=== PATIENT | male | born 1935 | race Caucasian/White ===

== ENCOUNTER → 2018-06-16 14:23 | Outpatient (CLI) | payer MEDICARE, SELFPAY ==
[2018-06-16 17:09] LABS: Add Manual Diff / Slide Review NO; Basophils Percent Auto 0.8 % (0-2); Eosinophils Percent Auto 1.6 % (2-4); Hematocrit 42.8 % (41-53); Hemoglobin 14.7 g/dL (13.5-17.5); Lymphocytes Percent Auto 25.1 % (25-40); Mean Corpuscular HGB Conc 34.4 % (30-36); Mean Corpuscular Hemoglobin 30.8 PG (26-34); Mean Corpuscular Volume 89.5 fL (80-100); Monocytes Percent Auto 6.9 % (3-14); Neutrophils Absolute Auto 4800 /uL (3000-5900); Neutrophils Percent Auto 65.6 % (50-75); Platelet Count 158 X10^3/uL (150-400); Red Blood Cell Count 4.78 X10^6/uL (4.5-5.9); Red Cell Distribution Width 14.1 % (11.6-14.8); White Blood Cell Count 7.4 X10^3/uL (4.5-11.0)
[2018-06-16 18:04] LABS: Alanine Aminotransferase 49 IU/L (21-72); Albumin 4.1 g/dL (3.5-5.0); Albumin Globulin Ratio 1.6 (1.0-2.8); Alkaline Phosphatase 57 U/L (38-126); Aspartate Aminotransferase 35 IU/L (17-59); Bilirubin Total 0.7 mg/dL (0.2-1.3); Blood Urea Nitrogen 29 mg/dL (9-20); Calcium 9.6 mg/dL (8.4-10.2); Carbon Dioxide 28 mmol/L (22-32); Chloride 101 mmol/L (98-107); Cholesterol 158 mg/dL (140-199); Estimated Glomerular Filt Rate > 60.0 mL/min (>60); Globulin 2.5 g/dL (1.7-4.1); Glucose 89 mg/dL (80-110); HDL Cholesterol 56 mg/dL (40-60); HEMOLYSIS < 15 (0-50); LDL Cholesterol Calculated 59 mg/dL (<100); Potassium 4.6 mmol/L (3.4-5.1); Sodium 141 mmol/L (137-145); Total Protein 6.6 g/dL (6.3-8.2); Triglycerides 216 mg/dL (35-150)
[2018-06-16 18:34] LABS: Prostate Specific Antigen < 0.064 ng/mL (0.10-4.00)
[2018-06-16 18:35] LABS: Thyroid Stimulating Hormone 0.21 uIU/mL (0.47-4.68)
== END ==
PROVIDERS: Family Provider Urology; PCP Family Medicine; Visit Provider Urology
DX: C61 Malignant neoplasm of prostate (principal); E11.9 Type 2 diabetes mellitus without complications; E78.5 Hyperlipidemia, unspecified; I49.9 Cardiac arrhythmia, unspecified; Z12.5 Encounter for screening for malignant neoplasm of prostate; Z51.81 Encounter for therapeutic drug level monitoring
CPT/HCPCS: 36415; 80053; 80061; 84153; 84443; 85025

== ENCOUNTER → 2018-12-12 11:09 | Outpatient (CLI) | payer MEDICARE, SELFPAY ==
[2018-12-12 12:22] LABS: Add Manual Diff / Slide Review NO; Basophils Absolute Auto 0 /uL (0-100); Basophils Percent Auto 0.7 % (0-2); Eosinophils Absolute Auto 200 /uL (0-450); Hematocrit 43.5 % (41-53); Hemoglobin 14.6 g/dL (13.5-17.5); Lymphocytes Absolute Auto 1600 /uL (1100-4500); Lymphocytes Percent Auto 27.6 % (25-40); Mean Corpuscular HGB Conc 33.5 % (30-36); Mean Corpuscular Hemoglobin 30.2 PG (26-34); Mean Corpuscular Volume 90.4 fL (80-100); Monocytes Absolute Auto 400 /uL (0-900); Neutrophils Absolute Auto 3500 /uL (1500-7000); Neutrophils Percent Auto 61.7 % (50-75); Platelet Count 170 X10^3/uL (150-400); Red Blood Cell Count 4.81 X10^6/uL (4.5-5.9); White Blood Cell Count 5.7 X10^3/uL (4.5-11.0)
[2018-12-12 14:10] LABS: Alanine Aminotransferase 48 IU/L (21-72); Albumin 3.9 g/dL (3.5-5.0); Albumin Globulin Ratio 1.5 (1.0-2.8); Alkaline Phosphatase 57 U/L (38-126); Aspartate Aminotransferase 34 IU/L (17-59); Bilirubin Total 0.7 mg/dL (0.2-1.3); Blood Urea Nitrogen 21 mg/dL (9-20); Calcium 9.7 mg/dL (8.4-10.2); Carbon Dioxide 24 mmol/L (22-32); Chloride 103 mmol/L (98-107); Cholesterol 145 mg/dL (140-199); Estimated Glomerular Filt Rate > 60.0 mL/min (>60); Globulin 2.6 g/dL (1.7-4.1); Glucose 119 mg/dL (80-110); HDL Cholesterol 55 mg/dL (40-60); HEMOLYSIS < 15 (0-50); LDL Cholesterol Calculated 68 mg/dL (<100); Potassium 4.3 mmol/L (3.4-5.1); Sodium 139 mmol/L (137-145); Total Protein 6.5 g/dL (6.3-8.2); Triglycerides 110 mg/dL (35-150)
[2018-12-16 15:22] LABS: PSA, Total < 0.1 ng/mL (< 4.1)
== END ==
PROVIDERS: Family Provider Family Medicine; PCP Family Medicine; Visit Provider Specialist
DX: C61 Malignant neoplasm of prostate (principal); E78.5 Hyperlipidemia, unspecified; I10 Essential (primary) hypertension; Z85.46 Personal history of malignant neoplasm of prostate
CPT/HCPCS: 36415; 80053; 80061; 84153; 84154; 85025

== ENCOUNTER → 2019-04-03 10:06 | Outpatient (CLI) | payer MEDICARE, SELFPAY ==
--- NOTE | 2019-04-03 10:31 | DI.CT.S_ITS ---
PROCEDURE: CT LUMBAR SPINE WO CON INDICATIONS: Spondylolisthesis, lumbar region TECHNIQUE: Noncontrast 3 mm thick sections acquired from the T12 level to the sacrum. Sagittal and coronal reformats were constructed. For radiation dose reduction, the following was used: automated exposure control. COMPARISON: [facility] [place], CR, XR LUMBAR SPINE 2 OR 3 VIEWS, 03/31/2019, 12:03. [facility], MR, L-SPINE WITHOUT CONTRAST, 09/28/2016, 8:19. FINDINGS: Image quality: Excellent. Bones: There is trace anterolisthesis L4 on 5, otherwise normal bony AP alignment. No significant alignment changes compared to prior studies. There are transpedicular screws, bilateral fusion rods, and disc spacers from L4-S1. Subtle lucency surrounding the right S1 screw. No other evidence of hardware failure. No acute vertebral body compression fractures. Degenerative endplate cystic and sclerotic changes suggestive of Schmorl's nodes at multiple levels. No suspicious lytic or blastic bony lesions. Central spinal caliber is of normal overall caliber. No pars defects. T12-L1: Mild degenerative disc disease. L1-L2: Mild circumferential disc bulge and slight left facet hypertrophy causing mild left foraminal narrowing. L2-L3: Near-complete disc height loss with mild endplate spurring. Ligamentum flavum hypertrophy. This results in [id number] central canal stenosis and probable mild bilateral foraminal narrowing. L3-L4: Degenerative disc osteophyte complex and moderate ligamentum flavum hypertrophy are present which results in moderate central canal narrowing. Left facet spurring causes mild to moderate left foraminal narrowing. L4-L5: Scattered artifact from disc spacer and posterior fusion hardware partially obscures visualization of the neural foramina which on sagittal views appears widely patent. No significant central canal stenosis. L5-S1: No central canal or foraminal stenosis. Soft tissues: No retroperitoneal masses or hematomas. The right renal cyst and nonobstructing upper pole nephrolithiasis. Visualized aorta is normal in caliber. IMPRESSION: 1. L4-S1 posterior fusion and disc space are placement. Trace lucency around the right S1 screw without evidence of hardware migration. 2. Mild to moderate central canal stenosis secondary to disc, endplates, and posterior element hypertrophy, mainly at L3-4 and to a lesser extent L2-3. 3. Moderate left foraminal narrowing secondary to facet spurring at L3-4, and mild bilateral foraminal narrowing probably at L2-3. Dictated by: Sarah Merrill M.D. on 04/03/2019 at 13:01 Approved by: Sarah Merrill M.D. on 04/03/2019 at 13:15
[2019-04-03 11:41] LABS: Prostate Specific Antigen < 0.064 ng/mL (0.10-4.00)
== END ==
PROVIDERS: Family Provider Specialist; PCP Family Medicine; Visit Provider Orthopaedic Surgery Orthopaedic Surgery of the Spine
DX: M43.16 Spondylolisthesis, lumbar region (principal); M51.35 Other intervertebral disc degeneration, thoracolumbar region; M48.061 Spinal stenosis, lumbar region without neurogenic claudication; N40.1 Benign prostatic hyperplasia with lower urinary tract symptoms; Z98.1 Arthrodesis status
CPT/HCPCS: 36415; 72131; 84153

== ENCOUNTER → 2019-06-22 14:31 | Outpatient (CLI) | payer MEDICARE, SELFPAY ==
--- NOTE | 2019-06-22 14:36 | DI.US.S_ITS ---
PROCEDURE: US THYROID INDICATIONS: MULTINODULAR GOITER TECHNIQUE: Real-time scanning was performed of the thyroid gland, with image documentation. COMPARISON: Outside Facility, , US SOFT TISSUE HEAD OR NECK, 10/13/2013, 9:49. [facility], [place], THYROID UPTAKE AND SCAN, 03/10/2013, 9:22. FINDINGS: Right: Thyroid lobe measures 7.2 x 4.8 x 3.5 cm, and is homogeneous in echotexture. Left: Thyroid lobe measures 8.9 x 3.7 x 3.2 cm, and is homogenous in echotexture. Isthmus: 9.0 mm thick. Nodule number: 1 Location: Right mid inferior Size: Increased at 5.7 x 4.5 x 3.1 cm. Composition: Solid Echogenicity: Heterogeneous Shape: wider than tall. Margins: Smooth Echogenic foci: Internal punctate echogenic foci and macrocalcifications Total points: 7 ACR TI-RADS category: Highly suspicious Nodule number: 2 Location: Right superior medial Size: 1.8 x 1.8 x 1.6 cm. Composition: Predominantly solid Echogenicity: Isoechoic Shape: wider than tall. Margins: Smooth Echogenic foci: Internal punctate echogenic foci Total points: 5 ACR TI-RADS category: Moderately suspicious Nodule number: 3 Location: Left superior Size: Increased at 2.3 x 2.2 x 2.1 cm. Composition: Predominant solid Echogenicity: Isoechoic Shape: wider than tall. Margins: Ill-defined Echogenic foci: Internal punctate echogenic foci Total points: 6 ACR TI-RADS category: Moderately suspicious Nodule number: 4 Location: Left mid Size: 2.6 x 2.0 x 1.8 cm. Composition: Predominantly solid Echogenicity: Hypoechoic Shape: wider than tall. Margins: Ill-defined Echogenic foci: None Total points: 5 ACR TI-RADS category: Moderately suspicious Nodule number: 5 Location: Left inferior Size: Increased at 3.6 x 3.4 x 2.6 cm. Composition: Predominant solid Echogenicity: Hypoechoic Shape: wider than tall. Margins: Irregular Echogenic foci: Macrocalcifications Total points: 6 ACR TI-RADS category: Moderately suspicious IMPRESSION: Bilateral thyroid nodules as above. Recommend sonographically directed fine needle aspiration on the right # 1 and the left # 5 nodules and continued sonographic surveillance of the additional smaller nodules. ACR TI-RADS definitions and recommendations: TI-RADS 1 (benign): 0 points. FNA not needed. TI-RADS 2 (not suspicious): 2 points. FNA not needed. TI-RADS 3 (mildly suspicious): 3 points. * FNA if 2.5 cm or larger, follow up if 1.5 cm or larger (at 1, 3, and 5 years). TI-RADS 4 (moderately suspicious): 4-6 points. * FNA if 1.5 cm or larger, follow up if 1 cm or larger (at 1, 2, 3, and 5 years). TI-RADS 5 (highly suspicious): 7 points or more. * FNA if 1 cm or larger, follow up if 0.5 cm or larger (every year for 5 years). Dictated by: Jarod TERAN Interpreted: Lou Anne MD on 06/23/2019 at 10:11 Approved by: Lou Anne M.D. on 06/23/2019 at 12:30
== END ==
PROVIDERS: Family Provider Specialist; PCP Family Medicine; Visit Provider Family Medicine
DX: E04.2 Nontoxic multinodular goiter (principal)
CPT/HCPCS: 76536

== ENCOUNTER → 2019-10-02 09:59 | Outpatient (CLI) | payer MEDICARE, SELFPAY ==
[2019-10-02 11:31] LABS: Prostate Specific Antigen < 0.064 ng/mL (0.10-4.00)
== END ==
PROVIDERS: PCP Family Medicine; Visit Provider Specialist
DX: C61 Malignant neoplasm of prostate (principal)
CPT/HCPCS: 36415; 84153

== ENCOUNTER → 2019-10-30 12:06 | Outpatient (CLI) | payer MEDICARE, SELFPAY ==
[2019-10-30 14:16] LABS: Free T3, Triiodothyronine Free 3.68 pg/mL (2.77-5.27); Free T4, Direct Thyroxine 1.07 ng/dL (0.78-2.19)
[2019-10-30 14:29] LABS: Thyroid Stimulating Hormone 0.14 uIU/mL (0.47-4.68)
== END ==
PROVIDERS: PCP Family Medicine; Visit Provider Internal Medicine Endocrinology, Diabetes & Metabolism
DX: E04.2 Nontoxic multinodular goiter (principal); E05.90 Thyrotoxicosis, unspecified without thyrotoxic crisis or storm
CPT/HCPCS: 36415; 84439; 84443; 84481

== ENCOUNTER → 2020-02-26 10:06 | Outpatient (CLI) | payer MEDICARE, SELFPAY ==
[2020-02-26 21:21] LABS: COVID19 Sendout Not Detected (Not Detect)
== END ==
PROVIDERS: PCP Physician Assistant; Visit Provider Physician Assistant
DX: Z01.812 Encounter for preprocedural laboratory examination (principal)
CPT/HCPCS: 87635

== ENCOUNTER 2020-03-01 11:44 | Day surgery (SDC) | payer MEDICARE, SELFPAY ==
[2020-03-01] MEDS: PROPARACAINE 0.5% OPHTH SOL 2 DROPS EYE-OP (12:07)
[2020-03-01] MEDS: CATARACT EYE COMPOUND (10 DROPS/SYRINGE) 3 DROPS EYE-OP (12:08)
[2020-03-01 12:12] VITALS: BMI 31.2
[2020-03-01 12:25] VITALS: PULSE 73; RESP 16; TEMP 36.8; O2SAT 98
[2020-03-01 12:37] VITALS: BP 175/112
[2020-03-01 12:39] VITALS: BMI 31.2
--- NOTE | 2020-03-01 12:48 | SUR.PREOP ---
Patient has an irregular HR. Denies pain.
--- NOTE | 2020-03-01 15:46 | PM.PREOP ---
Pre-operative Note Interval Note History & Physical reviewed/Exam performed by Physician: Yes Changes to H&P: No
--- NOTE | 2020-03-01 15:46 | PM.OP.1 ---
Operative Date/Time/Diagnoses Pre-op diagnosis: Nuclear Cataract Left eye Post-op diagnosis: same Procedure & Clinicians Same procedure as scheduled: Yes Surgeon: Neil Nunez Anesthesia Type: MAC +/- and Sedation Operative Notes Procedure in detail: Patient brought to the operating suite. Tetracaine drops placed in the left eye. Patient was prepped and draped in sterile manner. Wire lid speculum was placed in the eye. Betadine drops were placed on the eye. This was irrigated. Lidocaine jelly was placed on the eye. A paracentesis port was created with a side-port blade. 0.1 mL 1% preservative free lidocaine was injected into the anterior chamber. The anterior chamber was deepened with viscoelastic. 2.6 mm keratome was used to create a temporal clear corneal incision. Cystotome and Utrata forceps were used to create continuous tear capsulorrhexis. Balanced salt solution was used to hydro dissect the nucleus. The phacoemulsification handpiece was inserted and the nucleus was removed using the stop and chop technique. There was a tear noted in the anterior chamber and 1 quarter of the nucleus descended in the posterior segment. No attempt was made to retrieve this. Anterior chamber was deepened with viscoelastic. The incision was enlarged with keratome. An Jarquin ZA003 intraocular lens with a power of 17.5 was injected into the sulcus. It was well centered. Irrigation aspiration handpiece was inserted and the remaining viscoelastic was removed. There was no vitreous in the anterior chamber. 1 ml of miostat was injected into the anterior chamber and the iris constricted symmetrically. Incision was hydrated with balanced salt solution and found to be leak free with pressure with Weck-Faby sponges. 0.1 mL Vigamox injected anterior chamber. 0.3 mL Kenalog 10 mg was injected subconjunctivally. A drop of timolol was given and one drop of ocuflox was given. Lid speculum was removed. The patient left the operating room in excellent condition. Complications: none Post-operative Condition: stable Disposition: same day surgery
[2020-03-01] MEDS: PHENYLEPHRINE/LIDOCAINE VIAL (OR) 0.2 ML EYE-OP (16:06)
[2020-03-01] MEDS: TRIAMCINOLONE 50 MG/5 ML VIAL INJ (16:07)
[2020-03-01] MEDS: MOXIFLOXACIN INJ 5 MG/ML VIAL EYE-OP (16:07)
[2020-03-01] MEDS: CARBACHOL 1.5 ML VIAL INJ (16:13)
[2020-03-01] MEDS: CHONDROIDTIN/SOD HYALURONATE 1.05 ML SYRINGE INTRAOCULA (16:13)
[2020-03-01] MEDS: BALANCED SALT IRRIG SOLN NO.2 500 ML, EPINEPHrine 1 MG IRR (16:14)
[2020-03-01] MEDS: TETRACAINE 0.5% OPHTH DROPS 4 ML 2 DROPS EYE-OP (16:14)
[2020-03-01] MEDS: LIDOCAINE JELLY 2% 5 ML 1 APPLIC TOP (16:15)
[2020-03-01] MEDS: OFLOXACIN 0.3% OPHTH 5 ML 2 DROPS EYE-LEFT (16:26)
[2020-03-01] MEDS: TIMOLOL 0.5% OPHTH 2 DROPS EYE-LEFT (16:27)
[2020-03-01 16:33] VITALS: BP 138/63; PULSE 16; RESP 16; TEMP 36.3; O2SAT 97
== END 2020-03-01 16:54 | disposition home or self-care (01) ==
PROVIDERS: PCP Physician Assistant; Referring Provider Ophthalmology; Visit Provider Ophthalmology
PROC: (CPT 66984; principal; 2020-03-01 14:30)
DX: H25.12 Age-related nuclear cataract, left eye (principal); E11.9 Type 2 diabetes mellitus without complications; Z86.73 Personal history of transient ischemic attack (TIA), and cerebral infarction without residual deficits
CPT/HCPCS: 66984; J0171; J2250; J3301

== ENCOUNTER → 2020-03-28 14:38 | Outpatient (CLI) | payer MEDICARE, SELFPAY ==
[2020-03-28 16:15] LABS: Prostate Specific Antigen < 0.064 ng/mL (0.10-4.00)
== END ==
PROVIDERS: PCP Student in an Organized Health Care Education/Training Program; Referring Provider Specialist; Visit Provider Specialist
DX: C61 Malignant neoplasm of prostate (principal)
CPT/HCPCS: 36415; 84153

== ENCOUNTER → 2020-04-11 12:54 | Outpatient (CLI) | payer MEDICARE, SELFPAY ==
[2020-04-11 14:04] LABS: BUN Creatinine Ratio 28.9 (6-22); Blood Urea Nitrogen 26 mg/dL (9-20); Calcium 9.5 mg/dL (8.4-10.2); Carbon Dioxide 24 mmol/L (22-32); Chloride 106 mmol/L (98-107); Estimated Glomerular Filt Rate > 60.0 mL/min (>60); Glucose 138 mg/dL (80-110); HEMOLYSIS < 15 (0-50); Potassium 4.2 mmol/L (3.4-5.1); Sodium 139 mmol/L (137-145)
[2020-04-11 16:14] LABS: Vitamin D 25 Hydroxy (D3) 26.3 ng/mL (30.0-100.0)
[2020-04-12 08:11] LABS: Parathyroid Hormone Int 38 pg/mL (15-65)
== END ==
PROVIDERS: PCP Student in an Organized Health Care Education/Training Program; Referring Provider Student in an Organized Health Care Education/Training Program; Visit Provider Student in an Organized Health Care Education/Training Program
DX: E83.52 Hypercalcemia (principal); I10 Essential (primary) hypertension
CPT/HCPCS: 36415; 80048; 82306; 83970

== ENCOUNTER → 2020-10-17 11:29 | Outpatient (CLI) | payer MEDICARE, SELFPAY ==
[2020-10-17 12:56] LABS: Hemoglobin A1C% w Est Avg Glu 6.4 % (4.0-6.0)
[2020-10-17 12:57] LABS: Alanine Aminotransferase 18 IU/L (<50); Albumin 3.8 g/dL (3.5-5.0); Albumin Globulin Ratio 1.5 (1.0-2.8); Alkaline Phosphatase 61 U/L (38-126); Aspartate Aminotransferase 21 IU/L (17-59); BUN Creatinine Ratio 49.3 (6-22); Bilirubin Total 0.4 mg/dL (0.2-1.3); Bilirubin Unconjugated 0.4 mg/dL (0.0-1.1); Blood Urea Nitrogen 33 mg/dL (9-20); Calcium 10.1 mg/dL (8.4-10.2); Carbon Dioxide 27 mmol/L (22-32); Chloride 104 mmol/L (98-107); Estimated Glomerular Filt Rate > 60.0 mL/min (>60); Globulin 2.5 g/dL (1.7-4.1); Glucose 129 mg/dL (80-110); HEMOLYSIS < 15 (0-50); Potassium 4.3 mmol/L (3.4-5.1); Sodium 138 mmol/L (137-145); Total Protein 6.3 g/dL (6.3-8.2)
[2020-10-17 13:27] LABS: Thyroid Stimulating Hormone 0.127 uIU/mL (0.47-4.68)
[2020-10-17 16:13] LABS: Vitamin D 25 Hydroxy (D3) 26.4 ng/mL (30.0-100.0)
== END ==
PROVIDERS: PCP Student in an Organized Health Care Education/Training Program; Referring Provider Student in an Organized Health Care Education/Training Program; Visit Provider Student in an Organized Health Care Education/Training Program
DX: F10.10 Alcohol abuse, uncomplicated (principal); R73.03 Prediabetes; E55.9 Vitamin D deficiency, unspecified; M81.0 Age-related osteoporosis without current pathological fracture; E05.90 Thyrotoxicosis, unspecified without thyrotoxic crisis or storm; I10 Essential (primary) hypertension
CPT/HCPCS: 36415; 80048; 80076; 82306; 83036; 84443

== ENCOUNTER → 2020-11-15 09:53 | Outpatient (CLI) | payer MEDICARE, OTHER, SELFPAY ==
[2020-11-15 11:41] LABS: Prostate Specific Antigen < 0.064 ng/mL (0.10-4.00)
[2020-11-15 11:47] LABS: Hemoglobin A1C% w Est Avg Glu 6.6 % (4.0-6.0)
== END ==
PROVIDERS: PCP Student in an Organized Health Care Education/Training Program; Referring Provider Specialist; Visit Provider Specialist
DX: E11.9 Type 2 diabetes mellitus without complications (principal); E55.9 Vitamin D deficiency, unspecified; R97.20 Elevated prostate specific antigen [PSA]
CPT/HCPCS: 36415; 82306; 83036; 84153

== ENCOUNTER → 2021-05-16 11:05 | Outpatient (CLI) | payer MEDICARE, SELFPAY ==
[2021-05-16 12:26] LABS: BUN Creatinine Ratio 29.6 (6-22); Blood Urea Nitrogen 21 mg/dL (9-20); Calcium 10.2 mg/dL (8.4-10.2); Carbon Dioxide 26 mmol/L (22-32); Chloride 106 mmol/L (98-107); Estimated Glomerular Filt Rate > 60.0 mL/min (>60); Glucose 142 mg/dL (80-110); HEMOLYSIS < 15 (0-50); Potassium 4.2 mmol/L (3.4-5.1); Sodium 140 mmol/L (137-145)
[2021-05-16 12:41] LABS: Hemoglobin A1C% w Est Avg Glu 6.1 % (4.0-6.0)
[2021-05-16 12:55] LABS: TSH w/ Reflex to FT4 0.16 uIU/mL (0.47-4.68)
[2021-05-16 13:00] LABS: Prostate Specific Antigen < 0.064 ng/mL (0.10-4.00)
== END ==
PROVIDERS: PCP Student in an Organized Health Care Education/Training Program; Referring Provider Student in an Organized Health Care Education/Training Program; Visit Provider Student in an Organized Health Care Education/Training Program
DX: C61 Malignant neoplasm of prostate (principal); E11.9 Type 2 diabetes mellitus without complications; E05.90 Thyrotoxicosis, unspecified without thyrotoxic crisis or storm; I10 Essential (primary) hypertension; N39.46 Mixed incontinence; M48.061 Spinal stenosis, lumbar region without neurogenic claudication; Z79.899 Other long term (current) drug therapy
CPT/HCPCS: 36415; 51798; 80048; 81002; 83036; 84153; 84439; 84443; 96372; 96402; 99214; J0897; J9217

== ENCOUNTER → 2021-10-25 09:59 | Outpatient (CLI) | payer MEDICARE, SELFPAY ==
[2021-10-25 11:10] LABS: BUN Creatinine Ratio 32.8 (6-22); Blood Urea Nitrogen 21 mg/dL (9-20); Estimated Glomerular Filt Rate > 60.0 mL/min (>60)
[2021-10-25 11:17] LABS: Hemoglobin A1C% w Est Avg Glu 5.9 % (4.0-6.0)
[2021-10-25 11:25] LABS: Vitamin D 25 Hydroxy (D3) 35.3 ng/mL (30.0-100.0)
[2021-10-25 11:49] LABS: Prostate Specific Antigen < 0.064 ng/mL (0.10-4.00)
[2021-10-25 12:10] LABS: Thyroid Stimulating Hormone 0.253 uIU/mL (0.47-4.68)
== END ==
PROVIDERS: Specialist; PCP Student in an Organized Health Care Education/Training Program; Referring Provider Student in an Organized Health Care Education/Training Program; Visit Provider Student in an Organized Health Care Education/Training Program
DX: E11.9 Type 2 diabetes mellitus without complications (principal); E55.9 Vitamin D deficiency, unspecified; C61 Malignant neoplasm of prostate; E05.90 Thyrotoxicosis, unspecified without thyrotoxic crisis or storm
CPT/HCPCS: 36415; 82306; 82565; 83036; 84153; 84443; 84520

== ENCOUNTER → 2021-11-15 10:42 | Outpatient (CLI) | payer MEDICARE, SELFPAY ==
[2021-11-15 13:25] LABS: Prostate Specific Antigen < 0.064 ng/mL (0.10-4.00)
== END ==
PROVIDERS: PCP Student in an Organized Health Care Education/Training Program; Referring Provider Specialist; Visit Provider Specialist
DX: R97.20 Elevated prostate specific antigen [PSA] (principal)
CPT/HCPCS: 36415; 84153

== ENCOUNTER → 2022-04-23 09:21 | Outpatient (CLI) | payer MEDICARE, SELFPAY ==
[2022-04-23 10:49] LABS: Hemoglobin A1C% w Est Avg Glu 6.3 % (4.0-6.0)
[2022-04-23 10:56] LABS: Blood Urea Nitrogen 23 mg/dL (9-20); Calcium 9.3 mg/dL (8.4-10.2); Carbon Dioxide 28 mmol/L (22-32); Chloride 104 mmol/L (98-107); Cholesterol 153 mg/dL (140-199); Estimated Glomerular Filt Rate > 60 mL/min (>60); Glucose 132 mg/dL (80-110); HDL Cholesterol 51 mg/dL (40-60); HEMOLYSIS < 15 (0-50); LDL Cholesterol Calculated 72 mg/dL (<100); Potassium 4.4 mmol/L (3.4-5.1); Sodium 137 mmol/L (137-145); Triglycerides 149 mg/dL (35-150)
[2022-04-23 11:23] LABS: Prostate Specific Antigen < 0.064 ng/mL (0.10-4.00)
[2022-04-23 11:24] LABS: TSH w/ Reflex to FT4 0.26 uIU/mL (0.47-4.68)
[2022-04-23 11:49] LABS: Free T4, Direct Thyroxine 1.26 ng/dL (0.78-2.19)
[2022-04-23 22:48] LABS: Creatinine Urine Random 90.1 mg/dL; Microalbumi Creatinin Ratio Ur 8.8 ug/mg CR (<30); Microalbumin Urine Random 0.8 mg/dL (0-1.6)
== END ==
PROVIDERS: Specialist; PCP Student in an Organized Health Care Education/Training Program; Referring Provider Student in an Organized Health Care Education/Training Program; Visit Provider Student in an Organized Health Care Education/Training Program
DX: E11.9 Type 2 diabetes mellitus without complications (principal); R97.20 Elevated prostate specific antigen [PSA]; E78.2 Mixed hyperlipidemia; E05.90 Thyrotoxicosis, unspecified without thyrotoxic crisis or storm
CPT/HCPCS: 36415; 80048; 80061; 82043; 82570; 83036; 84153; 84439; 84443

== ENCOUNTER → 2022-04-25 13:43 | Outpatient (CLI) | payer MEDICARE, SELFPAY | PROVIDERS: PCP Student in an Organized Health Care Education/Training Program; Referring Provider Specialist; Visit Provider Specialist | DX: M81.8 Other osteoporosis without current pathological fracture (principal); C61 Malignant neoplasm of prostate | CPT/HCPCS: 77080 ==

== ENCOUNTER → 2022-09-27 14:53 | Outpatient (CLI) | payer MEDICARE, SELFPAY ==
--- NOTE | 2022-09-27 14:54 | DI.CT.S_ITS ---
PROCEDURE: CT LUMBAR SPINE WO CON INDICATIONS: Worsening low back pain. H/o prostate Ca TECHNIQUE: Noncontrast 3 mm thick sections acquired from the T12 level to the sacrum. Sagittal and coronal reformats were constructed. For radiation dose reduction, the following was used: automated exposure control. COMPARISON: [facility], MR, L-SPINE WITHOUT CONTRAST, 09/28/2016, 8:19. [facility] [place], CR, XR LUMBAR SPINE 2 OR 3 VIEWS, 08/07/2022, 15:10. [facility] [place], CR, XR LUMBAR SPINE 2 OR 3 VIEWS, 05/22/2022, 11:08. [facility], CT, CT LUMBAR SPINE WO CON, 04/03/2019, 10:21. FINDINGS: Image quality: Excellent. Bones: No acute vertebral body compression fractures. No suspicious lytic or blastic bony lesions. No pars defects. Postoperative changes are seen, with bilateral pedicle screws at the L4, L5, and S1 levels. The screws appear well placed. Vertical fixation rods are seen. Disc spacers are seen at L4-L5 and L5-S1. There is abnormal lucency seen adjacent to the right S1 screw. This degree of lucency is similar to 2019. No additional findings of hardware failure or hardware loosening are seen. Mild grade 1 anterolisthesis is seen at the L4-L5 level. T12-L1: No significant abnormality is seen. L1-L2: At least moderate loss of disc height is seen. Vacuum disc phenomenon is seen at this level. Endplate irregularity and sclerosis can be seen. Remote appearing Schmorl's nodes are seen. Moderate disc bulge is seen, which is eccentric to the right. Mild facet joint hypertrophy is seen. Associated hypertrophy of the ligamentum flavum can be seen. There is at least moderate right-sided and moderate left-sided neural foraminal narrowing. At least moderate central canal narrowing is seen. These imaging findings have progressed compared to the prior study. L2-L3: Moderate to severe loss of disc height is seen. Vacuum disc phenomenon is seen at this level. Endplate irregularity and sclerosis can be seen. Moderate generalized disc bulge is seen. There is moderate to severe bilateral neural foraminal narrowing seen. At least moderate central canal narrowing is seen at this level. When comparison is made with the prior images, these findings are similar. L3-L4: Moderate to severe loss of disc height is seen. Vacuum disc phenomenon is seen at this level. Endplate irregularity and sclerosis can be seen. At least moderate disc bulge is seen at this level. Moderate to prominent facet hypertrophy is seen. Associated hypertrophy of the ligamentum flavum can be seen. There is moderate to severe bilateral neural foraminal narrowing seen, left worse than right. Moderate to severe central canal narrowing is seen. When compared to 2019, the degenerative changes at this level are progressed. L4-L5: At least moderate disc bulge is seen. Moderate to prominent facet hypertrophy is seen. At least moderate bilateral neural foraminal narrowing can be seen. Moderate central canal narrowing is seen. When comparison is made with the prior images, these findings are similar. L5-S1: Mild generalized disc bulge is seen. Mild facet joint hypertrophy is seen. Mild to moderate right-sided and mild left-sided neural foraminal narrowing is seen. No significant central canal narrowing is seen. When comparison is made with the prior images, these findings are similar. Soft tissues: No retroperitoneal masses or hematomas. Visualized aorta is normal in caliber. Atherosclerotic calcification is noted. Bilateral pelvic clips are seen. IMPRESSION: L4 through S1 postoperative hardware is seen. There is again seen lucency adjacent to the right S1 screw, which is similar to 2019. Multiple levels of degenerative change are seen. The degenerative changes are progressed at L1-L2 and at L3-L4 compared to 2019. Dictated by: Bobo Larios M.D. on 09/28/2022 at 12:05 Approved by: Bobo Larios M.D. on 09/28/2022 at 12:14
== END ==
PROVIDERS: PCP Student in an Organized Health Care Education/Training Program; Referring Provider Student in an Organized Health Care Education/Training Program; Visit Provider Student in an Organized Health Care Education/Training Program
DX: C61 Malignant neoplasm of prostate (principal); M47.816 Spondylosis without myelopathy or radiculopathy, lumbar region; M48.061 Spinal stenosis, lumbar region without neurogenic claudication; M43.16 Spondylolisthesis, lumbar region; M54.50 Low back pain, unspecified
CPT/HCPCS: 72131

== ENCOUNTER → 2022-11-26 10:34 | Outpatient (CLI) | payer MEDICARE, SELFPAY ==
[2022-11-26 12:27] LABS: Prostate Specific Antigen < 0.064 ng/mL (0.10-4.00)
[2022-11-26 12:51] LABS: Free T4, Direct Thyroxine 1.39 ng/dL (0.78-2.19)
== END ==
PROVIDERS: PCP Student in an Organized Health Care Education/Training Program; Referring Provider Specialist; Visit Provider Specialist
DX: E11.9 Type 2 diabetes mellitus without complications (principal); E05.90 Thyrotoxicosis, unspecified without thyrotoxic crisis or storm; C61 Malignant neoplasm of prostate
CPT/HCPCS: 36415; 83036; 84153; 84439; 84443

== ENCOUNTER → 2023-03-02 14:16 | Outpatient (CLI) | payer MEDICARE, SELFPAY ==
--- NOTE | 2023-03-02 14:18 | DI.RAD.S_ITS ---
PROCEDURE: XR SHOULDER RT MIN 2V INDICATIONS: Shoulder DJD TECHNIQUE: 3 views of the shoulder were acquired. COMPARISON: None. FINDINGS: Bones: No fractures or dislocations. No suspicious bony lesions. Visualized ribs appear intact. Moderate glenohumeral joint space narrowing and small marginal osteophyte Soft tissues: No suspicious soft tissue calcifications. IMPRESSION: Moderate right glenohumeral osteoarthritis Approved by: Chalo Loomis M.D. on 03/02/2023 at 14:00
--- NOTE | 2023-03-02 14:18 | DI.RAD.S_ITS ---
PROCEDURE: XR SHOULDER LT MIN 2V INDICATIONS: Shoulder DJD TECHNIQUE: 3 views of the shoulder were acquired. COMPARISON: None. FINDINGS: Bones: No fractures or dislocations. No suspicious bony lesions. Visualized ribs appear intact. Soft tissues: No suspicious soft tissue calcifications. IMPRESSION: Unremarkable left shoulder radiographs Approved by: Chalo Loomis M.D. on 03/02/2023 at 13:59
== END ==
PROVIDERS: Family Provider Student in an Organized Health Care Education/Training Program; PCP Student in an Organized Health Care Education/Training Program; Referring Provider Physical Medicine & Rehabilitation; Visit Provider Physical Medicine & Rehabilitation
DX: M19.011 Primary osteoarthritis, right shoulder (principal); M19.012 Primary osteoarthritis, left shoulder; M75.101 Unspecified rotator cuff tear or rupture of right shoulder, not specified as traumatic; M75.102 Unspecified rotator cuff tear or rupture of left shoulder, not specified as traumatic
CPT/HCPCS: 73030

== ENCOUNTER → 2023-06-25 13:39 | Outpatient (CLI) | payer MEDICARE, SELFPAY ==
[2023-06-25 15:55] LABS: Prostate Specific Antigen < 0.064 ng/mL (0.10-4.00)
== END ==
PROVIDERS: Family Provider Student in an Organized Health Care Education/Training Program; PCP Pediatrics; Referring Provider Specialist; Visit Provider Specialist
DX: C61 Malignant neoplasm of prostate (principal)
CPT/HCPCS: 36415; 84153

== ENCOUNTER 2023-09-27 17:07 | Emergency (ER) | payer MEDICARE, SELFPAY ==
[2023-09-27] VITALS (12 sets, daily range): BP systolic 133–202; BP diastolic 88–105; PULSE 61–112; RESP 16–24; TEMP 36.6–37.1; O2SAT 94–98; BMI 28.3
--- NOTE | 2023-09-27 17:10 | DI.CT.S_ITS ---
PROCEDURE: CT HEAD/BRAIN WO CON INDICATIONS: confusion TECHNIQUE: Noncontrast 4.5 mm thick angled axial sections acquired from the foramen magnum to the vertex, with coronal and sagittal reformats. For radiation dose reduction, the following was used: automated exposure control, adjustment of mA and/or kV according to patient size. COMPARISON: Outside Facility, RG, CT HEAD W/WO CONTRAST, 05/23/2016, 11:35. [facility], CT, CT CERVICAL SPINE WO CON, 09/27/2023, 17:52. FINDINGS: Image quality: Excellent. CSF spaces: Basal cisterns are patent. No extra-axial fluid collections. The ventricles are symmetric in size and shape. Brain: No intracranial bleeds or masses. There is cerebral volume loss for age, with resultant ventricular and sulcal prominence. There are periventricular and deep white matter chronic small vessel ischemic changes. There is intracranial internal carotid artery atherosclerosis. Skull and face: Calvarium and visualized facial bones appear intact, without suspicious lesions. Trace appearance of slight left frontal scalp hematoma. Sinuses: Visualized sinuses and mastoids are clear. IMPRESSION: 1. No acute intracranial process. 2. Moderate atrophy and chronic microvascular ischemic changes. 3. Trace appearance of left frontal scalp hematoma. Dictated by: Lou Anne M.D. on 09/27/2023 at 18:12 Approved by: Lou Anne M.D. on 09/27/2023 at 18:13
--- NOTE | 2023-09-27 17:10 | DI.CT.S_ITS ---
PROCEDURE: CT CERVICAL SPINE WO CON INDICATIONS: confusion possible fall TECHNIQUE: Noncontrast 3 mm thick sections acquired from the skull base to the T4 level. Sagittal and coronal reformats were then constructed. For radiation dose reduction, the following was used: automated exposure control, adjustment of mA and/or kV according to patient size. COMPARISON: [facility], CT, CT HEAD/BRAIN WO CON, 09/27/2023, 17:52. FINDINGS: Image quality: Excellent. Bones: No fractures or dislocations. Visualized superior ribs are intact. Multilevel degenerative changes are present. Soft tissues: Prevertebral soft tissues are normal in thickness. No paravertebral hematomas. No apical pneumothoraces. Thyroid gland is markedly enlarged with heterogeneous areas of low attenuation and calcification extending into the superior mediastinum, as identified on prior ultrasound. IMPRESSION: Degenerative changes without visualized fracture. Dictated by: Lou nAne M.D. on 09/27/2023 at 18:14 Approved by: Lou Anne M.D. on 09/27/2023 at 18:16
[2023-09-27 17:18] LABS: Add Manual Diff / Slide Review NO; Basophils Absolute Auto 100 /uL (0-100); Basophils Percent Auto 0.7 % (0-2); Eosinophils Absolute Auto 0 /uL (0-450); Eosinophils Percent Auto 0.1 % (2-4); Hematocrit 46.4 % (41-53); Hemoglobin 15.8 g/dL (13.5-17.5); Lymphocytes Absolute Auto 1000 /uL (1100-4500); Lymphocytes Percent Auto 8.8 % (25-40); Mean Corpuscular HGB Conc 34.1 % (30-36); Mean Corpuscular Hemoglobin 28.6 PG (26-34); Monocytes Absolute Auto 700 /uL (0-900); Monocytes Percent Auto 5.7 % (3-14); Neutrophils Absolute Auto 9700 /uL (1500-7000); Neutrophils Percent Auto 84.7 % (50-75); Platelet Count 184 X10^3/uL (150-400); Red Blood Cell Count 5.52 X10^6/uL (4.5-5.9); Red Cell Distribution Width 14.3 % (11.6-14.8); White Blood Cell Count 11.5 X10^3/uL (4.5-11.0)
[2023-09-27 17:31] LABS: Creatine Kinase 282 U/L (55-170); Lactate (Lactic Acid) 2.1 mmol/L (0.7-2.1); Lipase 75 U/L (23-300); Magnesium 2.1 mg/dL (1.6-2.3)
[2023-09-27 17:33] LABS: Alanine Aminotransferase 17 IU/L (<50); Albumin 4.3 g/dL (3.5-5.0); Albumin Globulin Ratio 1.4 (1.0-2.8); Alkaline Phosphatase 56 U/L (38-126); Aspartate Aminotransferase 29 IU/L (17-59); BUN Creatinine Ratio 37.3 (6-22); Blood Urea Nitrogen 22 mg/dL (9-20); Calcium 9.6 mg/dL (8.4-10.2); Carbon Dioxide 25 mmol/L (22-32); Chloride 102 mmol/L (98-107); Estimated Glomerular Filt Rate > 60 mL/min (>60); Ethanol (ETOH) < 10 mg/dL; Globulin 3.1 g/dL (1.7-4.1); Glucose 123 mg/dL (80-110); HEMOLYSIS 25 (0-50); Potassium 4.2 mmol/L (3.4-5.1); Sodium 137 mmol/L (137-145); Total Protein 7.4 g/dL (6.3-8.2)
[2023-09-27 17:44] LABS: Troponin I 0.028 ng/mL (0.01-0.034)
[2023-09-27 17:49] LABS: Procalcitonin 0.08 ng/mL (<0.5)
--- NOTE | 2023-09-27 17:51 | ED_ITS ---
HPI - Fall General Chief Complaint: Fall Stated Complaint: Fall, confused, unknown downtime possible thinner Time Seen by Provider: 09/27/23 17:09 Source: EMS Mode of arrival: EMS History of Present Illness HPI Narrative: Patient comes to the ED by ambulance because he was found on the floor in his apartment and unable to get up. Patient has no recollection of falling today though he does report a fall 2 days ago where he hit his head against the wall and has an abrasion on his forehead. Son went to lunch with him on Saturday of this week and he said that his dad looked a little bit out of sorts at that time but he was not overly concerned about it. Today multiple family members tried to contact him over a number of hours and ultimately family asked a staff member at the apartment complex to go check on him. That individual found him laying on the floor in his apartment where he would apparently been for a little bit of time. Paramedics arrived at the scene and transported him to the hospital. His son is at the bedside now. Son is an independent historian as well. Son said that he has no specific abnormalities that he has noted. The patient himself reports no new head injury neck pain chest pain abdominal pain or extremity pain other than chronic left shoulder pain. Denies recent nausea vomiting or illness or fever. Patient himself does not seem to think that his visit here as necessary and he would just like to go home. Son is concerned that he has not had anything to eat today. Related Data Home Medications Medication Instructions Recorded Confirmed diltiazem HCl 180 mg 180 mg PO DAILY 11/23/20 09/12/23 capsule,extended release 24 hr [id number] 250 2 tab PO Q6H PRN 04/26/22 09/12/23 mg-250 mg-65 mg tablet denosumab 60 mg/mL subcutaneous 60 mg SUBCUT [id number] 01/21/23 09/12/23 syringe (Prolia) latanoprost 0.005 % eye drops 1 drp EYE-LEFT DAILY 03/01/23 09/12/23 Previous Rx's Medication Instructions Recorded atorvastatin 40 mg tablet 40 mg PO HS #90 tabs 12/11/22 celecoxib 200 mg capsule (Celebrex) 200 mg PO DAILY #30 caps 03/01/23 losartan 100 mg tablet (Cozaar) 100 mg PO DAILY #90 tabs 05/28/23 hyaluronate sodium, stabilized 60 60 mg (3 mL) intra-articular ONCE 08/26/23 mg/3 mL intra-articular syringe #3 mL (Durolane) Allergies Allergy/AdvReac Type Severity Reaction Status Date / Time fluoride AdvReac Severe mouth sores Verified 09/27/23 17:22 adhesive tape AdvReac Mild redness Verified 09/27/23 17:22 and bruises amoxicillin [AMOXICILLIN] AdvReac Mild DIARRHEA Verified 09/27/23 17:13 Penicillins [PENICILLINS] AdvReac Mild DIARRHEA Verified 09/27/23 17:13 Patient History Medical History 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 DJD of both shoulders Recurrent prostate cancer Urinary incontinence, mixed Subclinical hyperthyroidism TIA (transient ischemic attack) Spondylolisthesis at L4-L5 level Cardiac arrhythmia Multinodular goiter Basal cell carcinoma Squamous cell carcinoma Cataracts, bilateral Osteopenia Spinal stenosis Diabetes Colon polyps Hyperlipemia Hypertension Surgical History Hx of squamous cell carcinoma excision Hx of basal cell carcinoma excision Hx of transurethral resection of prostate Hx of prostatectomy Hx of laminectomy Family History Father No problems noted. Mother Cancer Daughter Thyroid disorder Social History marital status: number of children: 2 household members: spouse Smoking Status: Former smoker Tobacco: How many years used: 60 alcohol intake: current caffeine: Yes Smoking Status: Former smoker alcohol intake frequency: 0-2 drinks per day Substance Use Type: does not use Exam Narrative Exam Narrative: GENERAL: Alert, cooperative and in no distress. HEAD: Abrasion of the left upper forehead. Normocephalic. EYES: Sclera are clear without icterus. Extraocular movements are full. ENT: No rhinorrhea. Oropharynx is moist. Mouth exam is benign. NECK: Supple. Full range of motion. CARDIOVASCULAR: Normal rate and rhythm without murmur gallop or rub. RESPIRATORY: Clear to auscultation. Breath sounds equal bilaterally. No wheezes, rales, or rhonchi. GASTROINTESTINAL: Abdomen soft, non-tender, nondistended. EXTREMITIES: No edema, full range of motion. No obvious trauma. Full range of motion of arms and legs with no evidence of deformity or limitation. BACK: Normal inspection, no CVA tenderness. NEURO: Nonfocal examination, normal speech, moves all extremities equally with normal strength speech is normal and unaffected. SKIN: No rash or erythema of visible areas PSYCH: Normally oriented. Normal range of affect. Appropriate behavior Initial Vital Signs Initial Vital Signs: Vital Signs Temperature 98.8 F 09/27/23 17:09 Pulse Rate 105 H 09/27/23 17:09 Respiratory Rate 16 09/27/23 17:09 Blood Pressure 150/98 H 09/27/23 17:09 Pulse Oximetry 95 09/27/23 17:09 Oxygen Delivery Method Room Air 09/27/23 17:09 Course Orders Ordered: ED Orders 09/27/23 17:10 CT cervical spine wo con Stat CT head/brain wo con Stat Complete Blood Count AUTO DIFF Stat Comprehensive Metabolic Panel Stat Ethanol (ETOH) Stat Lactate (Lactic Acid) Stat Lipase Stat Magnesium Stat Procalcitonin Stat Troponin & CK Cardiac Panel Stat 09/27/23 17:15 Covid-19 + FLU A/B + RSV - PCR Stat 09/27/23 17:42 EKG-12 Lead Stat 09/27/23 20:11 Urine Microscopic Stat Sodium Chloride (Normal Saline 0.9%) 1,000 mls @ 125 mls/hr IV CONT AYUSH Last Admin: 09/27/23 18:05 Dose: 125 mls/hr Documented By: MPO Vital Signs Vital signs: Vital Signs - 8 hr 09/27/23 17:09 09/27/23 17:10 09/27/23 17:11 Temperature 98.8 F Pulse Rate 105 H 107 H Pulse Rate [Orthostatic Lying] Pulse Rate [Orthostatic Sitting] Pulse Rate [Orthostatic Standing] Respiratory Rate 16 Blood Pressure 150/98 H 150/98 H Blood Pressure [Orthostatic Lying] Blood Pressure [Orthostatic Sitting] Blood Pressure [Orthostatic Standing] Pulse Oximetry 95 95 Oxygen Delivery Method Room Air 09/27/23 17:30 09/27/23 18:00 09/27/23 18:01 Temperature Pulse Rate 103 H 103 H 101 H Pulse Rate [Orthostatic Lying] Pulse Rate [Orthostatic Sitting] Pulse Rate [Orthostatic Standing] Respiratory Rate 17 21 Blood Pressure Blood Pressure [Orthostatic Lying] Blood Pressure [Orthostatic Sitting] Blood Pressure [Orthostatic Standing] Pulse Oximetry 94 96 96 Oxygen Delivery Method 09/27/23 18:01 09/27/23 20:25 Temperature Pulse Rate Pulse Rate [Orthostatic Lying] 66 Pulse Rate [Orthostatic Sitting] 111 H Pulse Rate [Orthostatic Standing] 112 H Respiratory Rate Blood Pressure 147/105 H Blood Pressure [Orthostatic Lying] 202/88 H Blood Pressure [Orthostatic Sitting] 134/97 H Blood Pressure [Orthostatic Standing] 144/105 H Pulse Oximetry Oxygen Delivery Method MDM - Fall Lab Data 09/27/23 17:10 09/27/23 17:10 Labs: Lab Results 09/27/23 09/27/23 09/27/23 Range/Units 17:10 17:15 19:36 WBC 11.5 H (4.5-11.0) X10^3/uL RBC 5.52 (4.5-5.9) X10^6/uL Hgb 15.8 (13.5-17.5) g/dL Hct 46.4 (41-53) % MCV 84.0 (80-100) fL MCH 28.6 (26-34) PG MCHC 34.1 (30-36) % RDW 14.3 (11.6-14.8) % Plt Count 184 (150-400) X10^3/uL Neut % (Auto) 84.7 H (50-75) % Lymph % (Auto) 8.8 L (25-40) % [place] % (Auto) 5.7 (3-14) % Eos % (Auto) 0.1 L (2-4) % Baso % (Auto) 0.7 (0-2) % Neut # (Auto) 9700 H (5030-2726) /uL Lymph # (Auto) 1000 L (7788-5868) /uL [place] # (Auto) 700 (0-900) /uL Eos # (Auto) 0 (0-450) /uL Baso # (Auto) 100 (0-100) /uL Sodium 137 (137-145) mmol/L Potassium 4.2 (3.4-5.1) mmol/L Chloride 102 (98-107) mmol/L Carbon Dioxide 25 (22-32) mmol/L BUN 22 H (9-20) mg/dL Creatinine 0.59 L (0.66-1.25) mg/dL Estimated GFR > 60 (>60) mL/min BUN/Creatinine Ratio 37.3 H (6-22) Glucose 123 H (80-110) mg/dL Lactate 2.1 2.1 (0.7-2.1) mmol/L Calcium 9.6 (8.4-10.2) mg/dL Magnesium 2.1 (1.6-2.3) mg/dL Total Bilirubin 1.0 (0.2-1.3) mg/dL AST 29 (17-59) IU/L ALT 17 (<50) IU/L Alkaline Phosphatase 56 (38-126) U/L Total Creatine Kinase 282 H (55-170) U/L Troponin I 0.028 (0.01-0.034) ng/mL Total Protein 7.4 (6.3-8.2) g/dL Albumin 4.3 (3.5-5.0) g/dL Globulin 3.1 (1.7-4.1) g/dL Albumin/Globulin Ratio 1.4 (1.0-2.8) Lipase 75 (23-300) U/L Procalcitonin 0.08 (<0.5) ng/mL Urine RBC (0-5/HPF) Urine WBC (0-5/HPF) Ur Squamous Epith Cells (0-5/HPF) Urine Bacteria (None) Urine Mucus (Negative) Ur Culture Indicated? Ethyl Alcohol < 10 ( - 10) mg/dL SARS-CoV-2 (PCR) Negative (Negative) Influenza A (RT-PCR) Flu a negative (NEGATIVE) Influenza B (RT-PCR) Flu b negative (NEGATIVE) RSV (PCR) Negative (Negative) 09/27/23 Range/Units 20:11 WBC (4.5-11.0) X10^3/uL RBC (4.5-5.9) X10^6/uL Hgb (13.5-17.5) g/dL Hct (41-53) % MCV (80-100) fL MCH (26-34) PG MCHC (30-36) % RDW (11.6-14.8) % Plt Count (150-400) X10^3/uL Neut % (Auto) (50-75) % Lymph % (Auto) (25-40) % [place] % (Auto) (3-14) % Eos % (Auto) (2-4) % Baso % (Auto) (0-2) % Neut # (Auto) (0210-2954) /uL Lymph # (Auto) (8003-5946) /uL [place] # (Auto) (0-900) /uL Eos # (Auto) (0-450) /uL Baso # (Auto) (0-100) /uL Sodium (137-145) mmol/L Potassium (3.4-5.1) mmol/L Chloride (98-107) mmol/L Carbon Dioxide (22-32) mmol/L BUN (9-20) mg/dL Creatinine (0.66-1.25) mg/dL Estimated GFR (>60) mL/min BUN/Creatinine Ratio (6-22) Glucose (80-110) mg/dL Lactate (0.7-2.1) mmol/L Calcium (8.4-10.2) mg/dL Magnesium (1.6-2.3) mg/dL Total Bilirubin (0.2-1.3) mg/dL AST (17-59) IU/L ALT (<50) IU/L Alkaline Phosphatase (38-126) U/L Total Creatine Kinase (55-170) U/L Troponin I (0.01-0.034) ng/mL Total Protein (6.3-8.2) g/dL Albumin (3.5-5.0) g/dL Globulin (1.7-4.1) g/dL Albumin/Globulin Ratio (1.0-2.8) Lipase (23-300) U/L Procalcitonin (<0.5) ng/mL Urine RBC 0-1/hpf (0-5/HPF) Urine WBC None seen (0-5/HPF) Ur Squamous Epith Cells None seen (0-5/HPF) Urine Bacteria None seen (None) Urine Mucus 1+ H (Negative) Ur Culture Indicated? Cult not indicated Ethyl Alcohol ( - 10) mg/dL SARS-CoV-2 (PCR) (Negative) Influenza A (RT-PCR) (NEGATIVE) Influenza B (RT-PCR) (NEGATIVE) RSV (PCR) (Negative) Urine Dip Bedside Urine Glucose Negative Bedside Urine Bilirubin - Negative Bedside Urine Ketone +/- 5 Urine Specific [place] 1.030 Bedside Urine Occult Blood +/- Bedside Urine pH 5.5 Bedside Urine Protein +/- 15 Bedside Urine Urobilinogen - Negative Bedside Urine Nitrite - Negative Bedside Urine Leukocytes - Negative Esterase MDM Narrative Medical decision making narrative: Normal head CT, normal neck CT. Laboratory data is entirely reassuring other than a mildly elevated CK. We will do a road test. Urinalysis has not yet been obtained but he has no history of urinary tract infections and does not feel ill nor does he have a fever right now. Patient is not orthostatic. I ambulated him in the hallway and he looks reasonably steady. His son says that he appears to be baseline. I discussed the idea of hospitalization and physical therapy assessment which he adamantly declines. His son is willing to take him home and make sure he is okay and gets a meal. No overt cause for the fall down event was identified here but I do recommend outpatient follow-up. Careful return precautions given. Discharge Plan Departure Patient Disposition: Home Clinical Impression: Fall Activity Restrictions/Additional Instructions: No dangerous injuries are identified after careful evaluation and imaging. No cause for the falls identified on blood tests or urinalysis or ECG. I think it would probably be safest to stay in the hospital and get a physical therapy assessment in the morning but you have declined this. I think it is probably reasonable be going home but you should be extraordinarily careful to prevent falls moving forward. I recommend you use a walker rather than the cane but a cane will do for now until you can acquire a walker. Follow-up with your doctor next week to discuss further assessment especially physical therapy or physical therapy at home. Your free to return to the ED at any time and I would strongly urge you to do so if you have another fall or have chest pain or shortness of breath or fainting or nausea or vomiting or diarrhea or any other severe symptoms. Prescriptions: No Action diltiazem HCl 180 mg capsule,extended release 24hr 180 mg PO DAILY atorvastatin 40 mg tablet 40 mg PO HS Qty: 90 1RF losartan [Cozaar] 100 mg tablet 100 mg PO DAILY Qty: 90 0RF Rx Instructions: PT WILL NEED TO BE SEEN BEFORE NEXT RENEWAL 05/28/23 [id number] 250-250-65 mg tablet 2 tab PO Q6H PRN Prolia 60 mg/mL syringe 60 mg SUBCUT [id number] latanoprost 0.005 % drops 1 drp EYE-LEFT DAILY Patient Comments: place 1 drop into left eye at bedtime celecoxib [Celebrex] 200 mg capsule 200 mg PO DAILY Qty: 30 2RF Durolane 60 mg/3 mL syringe 60 mg intra-articular ONCE Qty: 3 0RF Referrals: Cipriano Schmidt MD [Primary Care Provider] - Stand Alone Forms: Patient Portal/API
[2023-09-27 17:57] LABS: Influenza A - CEPHEID Flu A NEGATIVE (NEGATIVE); Influenza B - CEPHEID Flu B NEGATIVE (NEGATIVE); Respiratory Syncytial Virus Negative (Negative)
[2023-09-27] MEDS: SODIUM CHLORIDE 0.9% 1,000 ML 125 ML IV (18:05)
[2023-09-27 18:19] LABS: COVID-19 CEPHEID 4-PLEX PCR Negative (Negative)
[2023-09-27 18:56] LABS: Reflexed Lactate in 2 Hours Y
[2023-09-27 20:02] LABS: Lactate 2HR (Lactic Acid Rflx) 2.1 mmol/L (0.7-2.1)
[2023-09-27 20:37] LABS: Bacteria Urine None Seen; Squamous Epithelial Cell Urine None Seen (0-5/HPF); WBC Urine None Seen (0-5/HPF)
[2023-09-27 20:38] LABS: Culture Indicated Urine Cult Not Indicated; Mucus Urine 1+ (Negative); RBC Urine 0-1/HPF (0-5/HPF)
== END 2023-09-27 21:21 | disposition home or self-care (01) ==
PROVIDERS: Emergency Medicine; Emergency Provider Family Medicine Addiction Medicine; Family Provider Student in an Organized Health Care Education/Training Program; PCP Pediatrics
DX: S09.90XA Unspecified injury of head, initial encounter (principal); W10.9XXA Fall (on) (from) unspecified stairs and steps, initial encounter; Z79.899 Other long term (current) drug therapy; Z20.822 Contact with and (suspected) exposure to COVID-19
CPT/HCPCS: 0241U; 36415; 70450; 72125; 80053; 80320; 81003; 81015; 82550; 83605; 83690; 83735; 84145; 84484; 85025; 93005; 93010; 99284

== ENCOUNTER 2023-09-30 13:29 | Emergency (ER) | payer MEDICARE, SELFPAY ==
[2023-09-30] VITALS (7 sets, daily range): BP systolic 139–174; BP diastolic 67–104; PULSE 80–104; RESP 14–24; TEMP 36.3; O2SAT 92–98; BMI 28.3
--- NOTE | 2023-09-30 13:56 | DI.RAD.S_ITS ---
PROCEDURE: XR CHEST 1V INDICATIONS: chest pain TECHNIQUE: One view of the chest was acquired. COMPARISON: None. FINDINGS: Surgical changes and devices: None. Lungs and pleura: Lungs are clear. No pleural effusions or pneumothorax. Mediastinum: Mediastinal contours appear normal. Heart size is normal. Bones and chest wall: No suspicious bony lesions. Overlying soft tissues appear unremarkable. IMPRESSION: No acute cardiopulmonary abnormality is seen. Dictated by: Socorro Phan M.D. on 09/30/2023 at 14:47 Approved by: Socorro Phan M.D. on 09/30/2023 at 14:47
--- NOTE | 2023-09-30 14:23 | PC.NURSE ---
Pt cam to the ED today with son who has concerns of multiple falls. Pt has recent ER visit hx due to GLF. Multiple bruises noted on pt's body in varying stages of healing. Large abrasion noted on pt's right upper back. Skin around wound is red and warm to touch. Wound culture taken and sent to lab. Pt is currently confused. Son reports that pt lived independently at [facility] [employer] and drives himself to lunch every day. Pt does not remember falling, nor does he remember having a large wound on his back. Denies any pain, sob, cp.
--- NOTE | 2023-09-30 14:24 | ED_ITS ---
HPI - Fall General Chief Complaint: Weakness Stated Complaint: fell a couple days ago, wants to make sure he's ok Time Seen by Provider: 09/30/23 13:57 Source: patient and family Mode of arrival: Ambulatory History of Present Illness HPI Narrative: Patient brought here by son from independent home living. Patient has been weak overall the past 1 month. He was seen here on the of this month for unknown down time after a fall. CT head CT cervical spines were done. Those were unremarkable. However patient has a large skin wound on the right scapular area. It is erythematous. No bleeding or ecchymosis. It is tender to touch around this area. Patient has multiple scabs on the body including the right elbow which she denies any pain. Is healing bruise in the left forehead. He is awake alert oriented x3. Clear speech. Moving all 4 extremities without difficulty. Patient is ambulatory using a cane. He is usually very functional, drives a car at his age and able to get food. They also provide food at the independent living. Patient denies any pain at this time. He does not recall any more falls other than the 1 incident last week when he got out of chair and next thing he knew he was on the ground. Related Data Home Medications Medication Instructions Recorded Confirmed diltiazem HCl 180 mg 180 mg PO DAILY 11/23/20 10/02/23 capsule,extended release 24 hr [id number]-xckwrsozhsocn-ypaxeovn 250 2 tab PO Q6H PRN 04/26/22 10/02/23 mg-250 mg-65 mg tablet denosumab 60 mg/mL subcutaneous 60 mg SUBCUT [id number] 01/21/23 10/02/23 syringe (Prolia) latanoprost 0.005 % eye drops 1 drp EYE-LEFT DAILY 03/01/23 10/02/23 Previous Rx's Medication Instructions Recorded atorvastatin 40 mg tablet 40 mg PO HS #90 tabs 12/11/22 losartan 100 mg tablet (Cozaar) 100 mg PO DAILY #90 tabs 05/28/23 hyaluronate sodium, stabilized 60 60 mg (3 mL) intra-articular ONCE 08/26/23 mg/3 mL intra-articular syringe #3 mL (Durolane) Allergies Allergy/AdvReac Type Severity Reaction Status Date / Time fluoride AdvReac Severe mouth sores Verified 10/02/23 15:15 adhesive tape AdvReac Mild redness Verified 10/02/23 15:15 and bruises amoxicillin [AMOXICILLIN] AdvReac Mild DIARRHEA Verified 10/02/23 15:15 Penicillins [PENICILLINS] AdvReac Mild DIARRHEA Verified 10/02/23 15:15 Review of Systems Review of Systems Narrative: GENERAL: negative chills, fatigue, malaise, fever, sweats. HEENT: negative sinus pain, ear pain, sore throat RESPIRATORY: negative dyspnea, cough CARDIOVASCULAR: negative chest pain, palpitations GASTROINTESTINAL: negative nausea, vomiting, abdominal pain : negative dysuria, frequency, hematuria MUSCULOSKELETAL: negative muscle or bony pain SKIN: negative rash, skin lesions, positive skin wounds NEUROLOGIC: negative weakness, numbness ROS Unobtainable: All systems reviewed & are unremarkable except as noted in HPI and below Patient History Medical History 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 DJD of both shoulders Recurrent prostate cancer Urinary incontinence, mixed Subclinical hyperthyroidism TIA (transient ischemic attack) Spondylolisthesis at L4-L5 level Cardiac arrhythmia Multinodular goiter Basal cell carcinoma Squamous cell carcinoma Cataracts, bilateral Osteopenia Spinal stenosis Diabetes Colon polyps Hyperlipemia Hypertension Surgical History Hx of squamous cell carcinoma excision Hx of basal cell carcinoma excision Hx of transurethral resection of prostate Hx of prostatectomy Hx of laminectomy Family History Father No problems noted. Mother Cancer Daughter Thyroid disorder Social History marital status: number of children: 2 household members: none Smoking Status: Former smoker Tobacco: How many years used: 60 alcohol intake: current caffeine: Yes Smoking Status: Former smoker alcohol intake frequency: 0-2 drinks per day Substance Use Type: does not use Exam Narrative Exam Narrative: GENERAL: in no distress, not toxic not dyspneic HEAD: Normocephalic. Healing left forehead bruise. Skin is intact. Otherwise scalp and face nontender no crepitus no step-off. EYES: Pupils equal round ENT: Mucous membranes moist. NECK: Trachea midline. No midline tenderness or step-off of the cervical thoracic or lumbar spine. Patient was log-rolled to the left side. CARDIOVASCULAR: Regular rate and rhythm RESPIRATORY: Clear to auscultation. Breath sounds equal bilaterally. No wheezes, rales, or rhonchi. GASTROINTESTINAL: Abdomen soft, non-tender EXTREMITIES: No gross deformities. Nontender bilateral shoulders elbows wrists pelvis hips knees and ankles. Able to flex and extend at both knees and hips. No shortening or rotation of the legs or feet. BACK: No flank tenderness. NEURO: AOx4. SKIN: Warm and dry scabbing/healing skin wound on the right olecranon area. Large skin would 20 cm in diameter right scapular area. No pus. Essentially exfoliated appearance. No muscle or fat or bony or muscle exposure seen. PSYCH: Not anxious, is cooperative Initial Vital Signs Initial Vital Signs: Vital Signs Temperature 97.3 F L 09/30/23 13:30 Pulse Rate 104 H 09/30/23 13:30 Respiratory Rate 14 09/30/23 13:30 Blood Pressure 139/67 09/30/23 13:30 Pulse Oximetry 98 09/30/23 13:30 Oxygen Delivery Method Room Air 09/30/23 13:30 Course Orders Ordered: Discontinued Medications Bacitracin (Bacitracin 28 Gm Oint) 1 applic TOP NOW ONE Stop: 09/30/23 16:31 Last Admin: 09/30/23 17:03 Dose: 1 applic Documented By: JEREMÍAS Sodium Chloride (Normal Saline 0.9%) 500 mls @ 1,000 mls/hr IV BOLUS ONE Stop: 09/30/23 15:00 Last Infusion: 09/30/23 15:20 Dose: Infused Documented By: Admin: 09/30/23 14:49 Dose: 1,000 mls/hr Documented By: CLEMENT Vital Signs Vital signs: Vital Signs - 8 hr 09/30/23 13:30 09/30/23 14:00 09/30/23 14:40 Temperature 97.3 F L Pulse Rate 104 H 93 H 90 Respiratory Rate 14 20 20 Blood Pressure 139/67 165/72 H Pulse Oximetry 98 92 97 Oxygen Delivery Method Room Air Room Air Room Air 09/30/23 14:43 09/30/23 14:45 09/30/23 15:00 Temperature Pulse Rate 89 89 83 Respiratory Rate 20 21 24 Blood Pressure Pulse Oximetry 97 98 97 Oxygen Delivery Method 09/30/23 15:00 09/30/23 15:15 Temperature Pulse Rate 80 Respiratory Rate Blood Pressure 174/104 H Pulse Oximetry 97 Oxygen Delivery Method MDM - Fall Lab Data 09/30/23 14:15 09/30/23 14:15 Labs: Lab Results 09/30/23 09/30/23 Range/Units 14:15 15:54 WBC 6.4 (4.5-11.0) X10^3/uL RBC 5.18 (4.5-5.9) X10^6/uL Hgb 14.9 (13.5-17.5) g/dL Hct 43.7 (41-53) % MCV 84.5 (80-100) fL MCH 28.7 (26-34) PG MCHC 34.0 (30-36) % RDW 14.5 (11.6-14.8) % Plt Count 181 (150-400) X10^3/uL Neut % (Auto) 70.6 (50-75) % Lymph % (Auto) 22.7 L (25-40) % Gregg % (Auto) 5.3 (3-14) % Eos % (Auto) 0.9 L (2-4) % Baso % (Auto) 0.5 (0-2) % Neut # (Auto) 4500 (9797-0685) /uL Lymph # (Auto) 1400 (2774-0662) /uL Gregg # (Auto) 300 (0-900) /uL Eos # (Auto) 100 (0-450) /uL Baso # (Auto) 0 (0-100) /uL PT 13.7 H (10.1-12.7) SECONDS INR 1.2 (0.9-1.3) APTT 31 (26-36) SECONDS Sodium 136 L (137-145) mmol/L Potassium 3.8 (3.4-5.1) mmol/L Chloride 105 (98-107) mmol/L Carbon Dioxide 25 (22-32) mmol/L BUN 27 H (9-20) mg/dL Creatinine 0.70 (0.66-1.25) mg/dL Estimated GFR > 60 (>60) mL/min BUN/Creatinine Ratio 38.6 H (6-22) Glucose 143 H (80-110) mg/dL Lactate 1.4 (0.7-2.1) mmol/L Calcium 9.1 (8.4-10.2) mg/dL Magnesium 2.2 (1.6-2.3) mg/dL Total Bilirubin 1.0 (0.2-1.3) mg/dL AST 24 (17-59) IU/L ALT 17 (<50) IU/L Alkaline Phosphatase 53 (38-126) U/L Total Creatine Kinase 126 (55-170) U/L Troponin I 0.012 (0.01-0.034) ng/mL Total Protein 7.0 (6.3-8.2) g/dL Albumin 3.9 (3.5-5.0) g/dL Globulin 3.1 (1.7-4.1) g/dL Albumin/Globulin Ratio 1.3 (1.0-2.8) Lipase 82 (23-300) U/L Procalcitonin 0.08 (<0.5) ng/mL Urine RBC 0-1/hpf (0-5/HPF) Urine WBC 0-1/hpf (0-5/HPF) Ur Squamous Epith Cells 0-1 /hpf (0-5/HPF) Urine Bacteria None seen (None) Ur Culture Indicated? Cult not indicated Urine Dip Bedside Urine Glucose Negative Bedside Urine Bilirubin - Negative Bedside Urine Ketone +/- 5 Urine Specific [place] 1.010 Bedside Urine Occult Blood +/- Bedside Urine pH 6.0 Bedside Urine Protein - Negative Bedside Urine Urobilinogen +/- 1mg Bedside Urine Nitrite - Negative Bedside Urine Leukocytes - Negative Esterase Imaging Data Chest x-ray: Radiologist's Impression: [address] [address] XRay Report Signed Patient: Maxim Johnson MR#: [id number] : 1935 Acct:[id number] Age/Sex: 88 / M Date of Service: 09/30/23 Loc: ED Accession Number: [id number] Procedure: XR chest 1V Ordering Provider: Jose Roberto Novak MD PROCEDURE: XR CHEST 1V INDICATIONS: chest pain TECHNIQUE: One view of the chest was acquired. COMPARISON: None. FINDINGS: Surgical changes and devices: None. Lungs and pleura: Lungs are clear. No pleural effusions or pneumothorax. Mediastinum: Mediastinal contours appear normal. Heart size is normal. Bones and chest wall: No suspicious bony lesions. Overlying soft tissues appear unremarkable. IMPRESSION: No acute cardiopulmonary abnormality is seen. Dictated by: Socorro Phan M.D. on 09/30/2023 at 14:47 Approved by: Socorro Phan M.D. on 09/30/2023 at 14:47 CT chest abdomen pelvis: Radiologist's Impression: [address] [address] [address] Scan Report Signed Patient: Maxim Johnson MR#: [id number] : 1935 Acct:[id number] Age/Sex: 88 / M Date of Service: 09/30/23 Loc: ED Accession Number: [id number] Procedure: CT chest abd pel w con Ordering Provider: Jose Roberto Novak MD PROCEDURE: CT CHEST ABD PEL W CON INDICATIONS: Fall/trauma TECHNIQUE: After the administration of intravenous contrast, 5 mm thick sections acquired from the lung apices to the symphysis. 2.5 mm thick coronal and sagittal reformats were acquired. Additional 7 mm thick coronal maximum intensity projection (MIP) reformats acquired through the lungs. Optional 10-minute delayed imaging may be performed from the kidneys to the bladder. For radiation dose reduction, the following was used: automated exposure control, adjustment of mA and/or kV according to patient size. COMPARISON: [facility], CT, CT LUMBAR SPINE WO CON, 09/27/2022, 14:56. Outside Facility, , US SOFT TISSUE HEAD OR NECK, 10/13/2013, 9:49. [facility], US THYROID, 06/22/2019, 14:48. [facility], CT, CT HEAD/BRAIN WO CON, 09/30/2023, 14:29. [facility], CT, CT CERVICAL SPINE WO CON, 09/30/2023, 14:29. [facility], CR, XR CHEST 1V, 09/30/2023, 14:21. FINDINGS: Image quality: Excellent. CHEST: Lungs: No pulmonary contusions or lacerations. No acute airspace opacities. No pneumothorax or hemothorax. Central and peripheral airways appear patent and normal in caliber. Mediastinum: At least moderate coronary artery calcification is seen. A No mediastinal hematomas. Heart size is normal. No pericardial effusion. Thoracic aorta and pulmonary arteries demonstrate normal size and enhancement. No mediastinal or hilar adenopathy. Esophagus is normal in caliber. No hiatal hernia. Chest wall: No rib fractures. No subcutaneous emphysema. No axillary or supraclavicular adenopathy. Thyroid gland is again demonstrated to be enlarged and multi lobulated. ABDOMEN: Solid organs: Liver is normal in size and enhancement, without lacerations. Gallbladder demonstrates layering gallstones. No additional CT findings of cholecystitis are seen. Biliary system is non-dilated. Pancreas enhances normally, without transection. Spleen is normal in size and enhancement, without lacerations. No adrenal hematomas. Both kidneys enhance normally, without hydronephrosis or lacerations. Simple right renal cysts are seen. Peritoneum and bowel: No free fluid or air. Unenhanced bowel loops demonstrate normal wall thickness and caliber. Colonic diverticulosis is seen, without findings of active diverticulitis. A normal appendix is noted. Nodes and vessels: No retroperitoneal or mesenteric adenopathy. Aorta and inferior vena cava are normal in size and enhancement. Atherosclerotic calcification is noted. Miscellaneous: No ventral hernias. PELVIS: Genitourinary: Bladder wall thickness is normal. Prior prostate removal can be seen, with postoperative clips. Miscellaneous: No inguinal hernias or adenopathy. Bones: Accentuated thoracic kyphosis is seen. Pelvic ring and hip joints appear intact. No vertebral compression fractures. Lumbosacral postoperative change is again seen. Again seen mild lucency adjacent to the right S1 screw. At least moderate lumbar spine degenerative change is seen. IMPRESSION: No acute posttraumatic abnormality is identified. Additional findings: Enlarged, multi lobulated thyroid, as before. At least moderate coronary artery calcification Gallstones Simple right renal cysts Normal appendix Diverticulosis, without active diverticulitis Lumbosacral postoperative change Stable mild lucency adjacent to the right S1 screw Prostatectomy Dictated by: Bobo Larios M.D. on 09/30/2023 at 14:04 Approved by: Bobo Larios M.D. on 09/30/2023 at 14:10 CT scan - head: Radiologist's Impression: [address] [address] [address] Scan Report Signed Patient: Maxim Johnson MR#: [id number] : 1935 Acct:[id number] Age/Sex: 88 / M Date of Service: 09/30/23 Loc: ED Accession Number: [id number] Procedure: CT head/brain wo con Ordering Provider: Jose Roberto Novak MD PROCEDURE: CT HEAD/BRAIN WO CON INDICATIONS: Fall/trauma TECHNIQUE: Noncontrast 4.5 mm thick angled axial sections acquired from the foramen magnum to the vertex, with coronal and sagittal reformats. For radiation dose reduction, the following was used: automated exposure control, adjustment of mA and/or kV according to patient size. COMPARISON: [facility], CT, CT CHEST ABD PEL W CON, 09/30/2023, 14:29. [facility], CT, CT CERVICAL SPINE WO CON, 09/30/2023, 14:29. [facility], CT, CT HEAD/BRAIN WO CON, 09/27/2023, 17:52. FINDINGS: Image quality: Excellent. CSF spaces: Basal cisterns are patent. No extra-axial fluid collections. The ventricles are symmetric in size and shape. Brain: No intracranial bleeds or masses. There is cerebral volume loss for age, with resultant ventricular and sulcal prominence. There are periventricular and deep white matter chronic small vessel ischemic changes. There is intracranial internal carotid artery atherosclerosis. Skull and face: Calvarium and visualized facial bones appear intact, without suspicious lesions. Sinuses: Visualized sinuses and mastoids are clear. IMPRESSION: No acute intracranial hemorrhage is seen. No acute intracranial process is seen. Dictated by: Bobo Larios M.D. on 09/30/2023 at 14:00 Approved by: Bobo Larios M.D. on 09/30/2023 at 14:01 CT - cervical spine: Radiologist's Impression: [address] [address] [address] Scan Report Signed Patient: Maxim Johnson MR#: [id number] : 1935 Acct:[id number] Age/Sex: 88 / M Date of Service: 09/30/23 Loc: ED Accession Number: [id number] Procedure: CT cervical spine wo con Ordering Provider: Jose Roberto Novak MD PROCEDURE: CT CERVICAL SPINE WO CON INDICATIONS: Fall/trauma TECHNIQUE: Noncontrast 3 mm thick sections acquired from the skull base to the T4 level. Sagittal and coronal reformats were then constructed. For radiation dose reduction, the following was used: automated exposure control, adjustment of mA and/or kV according to patient size. COMPARISON: Outside Facility, [facility] SOFT TISSUE HEAD OR NECK, 10/13/2013, 9:49. [facility], US THYROID, 06/22/2019, 14:48. [facility], CT, CT CHEST ABD PEL W CON, 09/30/2023, 14:29. [facility], CT, CT HEAD/BRAIN WO CON, 09/30/2023, 14:29. [facility], CT, CT CERVICAL SPINE WO CON, 09/27/2023, 17:52. FINDINGS: Image quality: Excellent. Bones: No fractures or dislocations. Visualized superior ribs are intact. Focal degenerative change is seen involving the C1-C2 interface anteriorly. There is at least moderate disc space narrowing seen at the C4-C5 level cause moderate to severe disc space narrowing at C5-C6 and C6-C7. Soft tissues: Prevertebral soft tissues are normal in thickness. No paravertebral hematomas. No apical pneumothoraces. Atherosclerotic calcification is noted. An enlarged, multilobular thyroid can be seen. IMPRESSION: Negative for fracture. Cervical spine degenerative changes are seen, which are worst inferiorly. Dictated by: Bobo Lraios M.D. on 09/30/2023 at 14:02 Approved by: Bobo Larios M.D. on 09/30/2023 at 14:04 [facility] [place] Narrative Medical decision making narrative: Patient brought here by son from independent home living. Patient has been weak overall the past 1 month. He was seen here on the of this month for unknown down time after a fall. CT head CT cervical spines were done. Those were unremarkable. However patient has a large skin wound on the right scapular area. It is erythematous. No bleeding or ecchymosis. It is tender to touch around this area. Patient has multiple scabs on the body including the right elbow which she denies any pain. Is healing bruise in the left forehead. He is awake alert oriented x3. Clear speech. Moving all 4 extremities without difficulty. Patient is ambulatory using a cane. He is usually very functional, drives a car at his age and able to get food. They also provide food at the independent living. Patient denies any pain at this time. He does not recall any more falls other than the 1 incident last week when he got out of chair and next thing he knew he was on the ground. After history and exam CBC CMP urinalysis CT head CT cervical spine CT chest abdomen pelvis. Patient denies any chest pain back pain or abdominal pain. Normal saline MDM CC: Weakness Complicating co-morbidities: Patient lives alone Data collected from: Patient and son Medical records reviewed: September 27, 2023 ER visit here Differential considered: Includes but not limited to dehydration UTI electrolyte imbalance intracranial bleed, stroke, failure to thrive/dementia Exam documented above, pertinent findings include: Multiple bruises Lab Test results independently reviewed as above. Pertinent findings: WBC 6.4 hemoglobin 14.9 hematocrit 43.7 platelets 181 INR 1.2 sodium 136 potassium 3.8 bicarb 25 BUN 27 creatinine 0.7 GFR greater than 60 glucose 143 troponin 0.012 AST 24 ALT 17 0 1 WBC in the urine. No bacteria. Independently reviewed EKG sinus rhythm rate [address] elevation or depression, PVC present Imaging studies independently reviewed: CT head cervical spine chest abdomen pelvis no acute finding chest x-ray no acute finding Consultations: metalworkerMally, seeing patient and son for home health care/wound care. Patient was seen by Physical therapy here as well. He passed physical therapy testing. Not requiring supplemental physical therapy for admission or at home Treatments: Normal saline/bacitracin Re-evaluations: 4:30 p.m.. Updated patient and son evaluations. They do agree for discharge home. No acute findings on workup today. Return precautions reviewed. Social work will help for establishing outpatient home health care. They agree with this and they may look into advancing to more dependent living Discussion: Appropriate for discharge home. Exam and laboratory studies and imaging are reassuring. Patient does have good support at home. Social work was involved as well as physical therapy today. Patient and son are motivated and desire discharge home. Return precautions reviewed. Nontoxic at discharge. No oral antibiotics indicated. Laboratory studies and exam skin wound is reassuring. This can be treated with topical antibiotic. Son essentially wanted patient to be re-evaluated as he was uncertain if patient had fallen again since his last visit here. Patient is very sure he has not fallen more than once. No further falls since he was seen here Diagnosis: Forehead contusion/skin tear Discharge Plan Departure Patient Disposition: Home Clinical Impression: Skin tear, Contusion of forehead Instructions: DI for Contusion, DI for Closed Head Injury, DI for Wound Infection Activity Restrictions/Additional Instructions: Please see your new family doctor, Dr. Coello this Saturday at 3:15 p.m. check-in. Home health will be set up by social work here. Please change dressing daily with warm soap and water and apply a thin layer of topical antibiotic bacitracin or Neosporin. Today's laboratory studies and imaging workup are reassuring. Please follow instructions by physical therapy and social work today. Return if worse if any questions or concerns Prescriptions: No Action diltiazem HCl 180 mg capsule,extended release 24hr 180 mg PO DAILY atorvastatin 40 mg tablet 40 mg PO HS Qty: 90 1RF losartan [Cozaar] 100 mg tablet 100 mg PO DAILY Qty: 90 0RF Rx Instructions: PT WILL NEED TO BE SEEN BEFORE NEXT RENEWAL 05/28/23 uhojoyn-xfpzrctxhduyk-mksgipey 250-250-65 mg tablet 2 tab PO Q6H PRN Prolia 60 mg/mL syringe 60 mg SUBCUT [id number] latanoprost 0.005 % drops 1 drp EYE-LEFT DAILY Patient Comments: place 1 drop into left eye at bedtime Durolane 60 mg/3 mL syringe 60 mg intra-articular ONCE Qty: 3 0RF Referrals: Cipriano Schmidt MD [Primary Care Provider] - Kimberly Coello DO [Physician] - Stand Alone Forms: Patient Portal/API
[2023-09-30 14:25] LABS: Add Manual Diff / Slide Review NO; Basophils Absolute Auto 0 /uL (0-100); Basophils Percent Auto 0.5 % (0-2); Eosinophils Absolute Auto 100 /uL (0-450); Eosinophils Percent Auto 0.9 % (2-4); Hematocrit 43.7 % (41-53); Hemoglobin 14.9 g/dL (13.5-17.5); Lymphocytes Absolute Auto 1400 /uL (1100-4500); Lymphocytes Percent Auto 22.7 % (25-40); Mean Corpuscular Hemoglobin 28.7 PG (26-34); Mean Corpuscular Volume 84.5 fL (80-100); Monocytes Absolute Auto 300 /uL (0-900); Monocytes Percent Auto 5.3 % (3-14); Neutrophils Absolute Auto 4500 /uL (1500-7000); Neutrophils Percent Auto 70.6 % (50-75); Platelet Count 181 X10^3/uL (150-400); Red Blood Cell Count 5.18 X10^6/uL (4.5-5.9); Red Cell Distribution Width 14.5 % (11.6-14.8); White Blood Cell Count 6.4 X10^3/uL (4.5-11.0)
[2023-09-30 14:34] LABS: INR 1.2 (0.9-1.3); Prothrombin Time 13.7 SECONDS (10.1-12.7)
[2023-09-30 14:36] LABS: PTT Partial Thromboplastin Tim 31 SECONDS (26-36)
[2023-09-30 14:41] LABS: Lactate (Lactic Acid) 1.4 mmol/L (0.7-2.1)
[2023-09-30] MEDS: SODIUM CHLORIDE 0.9% 500 ML 1000 ML IV (14:49)
[2023-09-30 15:32] LABS: Alanine Aminotransferase 17 IU/L (<50); Albumin 3.9 g/dL (3.5-5.0); Albumin Globulin Ratio 1.3 (1.0-2.8); Alkaline Phosphatase 53 U/L (38-126); Aspartate Aminotransferase 24 IU/L (17-59); BUN Creatinine Ratio 38.6 (6-22); Blood Urea Nitrogen 27 mg/dL (9-20); Calcium 9.1 mg/dL (8.4-10.2); Carbon Dioxide 25 mmol/L (22-32); Chloride 105 mmol/L (98-107); Creatine Kinase 126 U/L (55-170); Estimated Glomerular Filt Rate > 60 mL/min (>60); Globulin 3.1 g/dL (1.7-4.1); Glucose 143 mg/dL (80-110); HEMOLYSIS < 15 (0-50); Lipase 82 U/L (23-300); Magnesium 2.2 mg/dL (1.6-2.3); Potassium 3.8 mmol/L (3.4-5.1); Sodium 136 mmol/L (137-145)
[2023-09-30 15:44] LABS: Troponin I 0.012 ng/mL (0.01-0.034)
[2023-09-30 15:49] LABS: Procalcitonin 0.08 ng/mL (<0.5)
--- NOTE | 2023-09-30 16:15 | PT.IIE ---
Surgical History (Last Reviewed 09/30/23 @ 14:27 by Jose Roberto Novak MD) Hx of basal cell carcinoma excision Hx of laminectomy Hx of prostatectomy Hx of squamous cell carcinoma excision Hx of transurethral resection of prostate Medical History (Last Reviewed 09/30/23 @ 14:27 by Jose Roberto Novak MD) Basal cell carcinoma Cardiac arrhythmia Cataracts, bilateral Colon polyps Diabetes DJD of both shoulders Hyperlipemia Hypertension Multinodular goiter Osteopenia Recurrent prostate cancer 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 Spinal stenosis Spondylolisthesis at L4-L5 level Squamous cell carcinoma Subclinical hyperthyroidism TIA (transient ischemic attack) Urinary incontinence, mixed Physical Therapy Inpatient Evaluation/Re-Eval M1 PT/OT-IP Prior Functional Status Start: 09/30/23 15:24 Freq: Status: Active Protocol: Document 09/30/23 16:15 AW (Rec: 09/30/23 16:43 AW [id number]) Medical Review Prior Functional Status Medical History Reviewed Yes Communication Pt is an effective verbal communicator. Mobility and Gait Pt uses a cane at all times. He has had a recent uptick in falls frequency (two fall- related ED visits in the past 2 weeks). Activities of Daily Living and IADL's Independent with basic ADL's. Pt drives and strongly values his indepenence. Prior Functional Level (Other details) Some meals are provided by [employer] and pt does avail himself of this benefit sometimes. Pt drives and does his own shopping. His son puts supplements in pill organizers but pt manages all his own prescription meds on his own. Social History Household Members none Living Arrangements Apartment/Condo Number of Floors (Floors) One Floor Number of Stairs To Enter/Railing? Level entrance, no stairs Home Environment Standard Height Toilet,Walk in Shower Home Equipment Straight Cane,Shower Seat without Backrest,Grab Bars In Shower Employment Status Retired Additional Social History Comment Pt resides at [employer]. He has supportive local family. M2 PT-IP Current Condition Start: 09/30/23 15:24 Freq: Status: Active Protocol: Document 09/30/23 16:15 AW (Rec: 09/30/23 16:43 AW [id number]) Physical Therapy Current Condition Current Condition Evaluation Date 09/30/23 Treatment Diagnosis falls; impaired mobility and gait Onset Date weeks M3 PT-IP Subjective Start: 09/30/23 15:24 Freq: Status: Active Protocol: Document 09/30/23 16:15 AW (Rec: 09/30/23 16:43 AW [id number]) Subjective Physical Therapy Visit Type Type Initial Evaluation Visit Start Time 15:43 Visit Stop Time 16:15 Total Visit Minutes 32 Notes Pt's son, Jarod, is present throughout. Physical Therapy Visit Comments Patient Comments Pt states his most recent fall was a result of getting his feet tangled up when getting out of a chair too quickly. Patient Goals Maintain independence Therapy Pain Assessment Pain When Pain Assessed During Mobility Pain Present Pain Present Pain Reported Location right scapula Scale Used not quantified. bothersome M4 PT-IP Mobility and Gait Start: 09/30/23 15:24 Freq: Status: Active Protocol: Document 09/30/23 16:15 AW (Rec: 09/30/23 16:43 AW [id number]) PT-Bed Mobility Assessment Supine to Sit Supine to Sit Independent Sit to Supine Sit to Supine Independent PT-Transfer Assessment Sit to and From Stand Sit to and from Stand Independent,Use of Upper Extremities Equipment Transfer Assistive Device Straight Cane Orthotic/Prosthetic Devices or Brace: No Transfers Transfer Destination Bed,Chair,Toilet Transfer Technique ambulated with SPC Transfer Ability Level of Assist Standby Assistance Comments Mobility Comments Pt is found resting on the ED gurney. He transfers to sitting EOB with ease and stands to walk to the bathroom . Transfers are SBA to mod I with SPC. Gait Assessment Gait Gait Assistance Required: Standby Assistance Distance (Feet) 200 Assistive Devices Assistive Device Straight Cane Gait Deviations General Gait Pattern Decreased Feet Clearance, Lateral Trunk Lean,Wide Based Gait Factors Limiting Gait Function Factors Limiting Gait Function Poor Balance,Poor Safety Awareness Comments Gait Comments SBA during all gait. Pt uses SPC which has no rubber tip and does slide on the floor. PT-Balance Assessment Sitting Balance and Reactions Static Sitting Balance Ability Normal Dynamic Sitting Balance Ability Normal Standing Balance and Reactions Static Standing Balance Ability Good Dynamic Standing Balance Ability Fair Device Used SPC Functional Assessments Functional Tests Timed Up and Go 22.6 sec standard; 33 sec with dual task Other Functional Tests Performed Cognitive task was counting backward from 100 by three's. Pt demonstrates 46% dual task cost and is less steady in dual task condition. M5 PT-IP Objective Assessments Start: 09/30/23 15:24 Freq: Status: Active Protocol: Document 09/30/23 16:15 AW (Rec: 09/30/23 16:43 AW [id number]) Orientation Orientation/Cognition Level of Alertness Alert Orientation Name,Day of Week,Place, Situation Language Function Ability No Deficits Noted Safety Awareness Decreased Safety Awareness Gross Range of Motion Upper Extremity ROM Assessment Within Functional Limits Lower Extremity ROM Assessment Within Functional Limits Strength Lower Extremity Strength Assessment Bilaterally Impaired Hip 5/5 flexion, 4/5 abduction Knee 5/5 flexion and extension Ankle 4/5 dorsiflexion Comments Strength Comments Painful R>L shoulders with grossly 4/5 to 4+/5 strength. Sensation Assessment Sensation Gross Sensation WNL M6 PT-IP Treatment Start: 09/30/23 15:24 Freq: Status: Active Protocol: Document 09/30/23 16:15 AW (Rec: 09/30/23 16:43 AW [id number]) Physical Therapy Treatment Education Education Provided Safety Other Treatments Other Treatment Performed Discussed results of dual task testing and implications for functional mobility. M7 PT-IP Assessment and Plan Start: 09/30/23 15:24 Freq: Status: Active Protocol: Document 09/30/23 16:15 AW (Rec: 09/30/23 16:43 AW [id number]) PT Summary Assessment and Plan Summary Impairments Strength,Balance,Cognition, Transfers,Gait Assessment Summary Maxim Johnson is an 88 yo man seen for PT evaluation during his second ED admit for falls in the same number of weeks. PMH includes basal cell carcinoma, arrhythmia, diabetes. Pt was seen by speech therapy in March 2023 and scored 23/30 on SLUMS, indicating mild cognitive impairment. Score on Scales of Cognitive and Communicative Ability for Neurorehabilitation was similarly suggestive. Baseline: Pt resides alone at [facility] which is an independent living facility. He is entirely independent with ADL's. He continues to drive and to manage his own shopping. He uses a SPC at all time. Current level of function: Pt presents with excellent BLE strength with the exception of 4/5 dorsiflexion. Slight steppage gait noted which is likely compensatory for weak dorsiflexion. Pt ambulates using SPC with SBA to modified independence. Pt participated in dual task Timed Up and Go testing (22.6 second in standard condition, 33 seconds in dual task condition), exhibiting a 46% dual task deficit. PT recommends discharge home with increased assist, if possible. Pt would benefit from outpatient phyiscal therapy focused on decreasing his dual task cost for improved safety. In addition, pt is encouraged to find a well-fitting rubber tip for his cane. Goals Bed Mobility Goal Independent Transfer Goal Independent,Cane Gait Goal Independent,Cane Gait Distance 400 Other Goals - Pt improves dual task TUG to 27 seconds or less Frequency of Treatment Frequency Of Treatment Once a Day Treatment Plan Physical Therapy Treatment Plan Transfer Training,Gait Training,Therapeutic Exercise, Balance Retraining,Discharge Planning,Neuromuscular Re-ed Other Recommendations and Next Treatment will follow up if pt is Focus admitted Precautions Other Precautions falls Discharge Recommendations PT Discharge Recommendations Home with Assistance, Outpatient PT Transportation Needs at Discharge Private Vehicle
[2023-09-30 16:25] LABS: Bacteria Urine None Seen; Culture Indicated Urine Cult Not Indicated; RBC Urine 0-1/HPF (0-5/HPF); Squamous Epithelial Cell Urine 0-1 /HPF (0-5/HPF); WBC Urine 0-1/HPF (0-5/HPF)
--- NOTE | 2023-09-30 16:49 | CM.SWNOTE ---
ED EMPLOYEE BENEFITS INSURANCE AGENT Note EMPLOYEE BENEFITS INSURANCE AGENT receives consult regarding patient's need for wound care. PT evaluates patient in ED and patient passes evaluation and ambulates well with cane. Patient is 88 y/o male who presents to ED due to concern for recent GLF a week ago, patient had similar presentation to ED after GLF on 09/27/23. Patient has hx skin tear, essential hypertension, mixed hyperlipidemia, functional memory problem and GLFs. Patient presents as A/Ox4, present in room is patient's son Jarod who resides in [place], [place] and visits patient once a week. Per EMR, patient's DPOA is son Jarod and daughter Nicky. Patient resides at independent living facility [facility]. Patient reports independence with most ADLs and can drive. Patient endorses concern with wound care on back, and is agreeable to wound care through HH. Patient states he can drive but also endorses increase in GLFs. Patient uses a cane at baseline. It is reported that son plans to get patient a life alert necklace. Patient's PCPs left the [address] [facility] and patient is in need of new PCP. EMPLOYEE BENEFITS INSURANCE AGENT calls clinic and schedules PCP f/u with new provider Dr. Meena Coello, DO for Saturday10/02/23 @ 3:15 check in. When discussing HH, patient and son endorse preference for [facility] for [facility] and denies need for other HH services. EMPLOYEE BENEFITS INSURANCE AGENT provides patient and son with [facility] brochure and list of DME resources. EMPLOYEE BENEFITS INSURANCE AGENT calls [facility] at [facility] and sets up new referral, EMPLOYEE BENEFITS INSURANCE AGENT scans signed F2F for referral in [facility] as [facility] has access to EMR to review clinicals for referral. EMPLOYEE BENEFITS INSURANCE AGENT submits order for HH. Plan: Patient to d/c to home with son, patient to f/u with PCP appt on Tuesday 10/02, [facility] to f/u with patient for new referral for [facility]. Mally Yun, TELESALES AGENT
[2023-09-30] MEDS: BACITRACIN 28 GM OINT 1 APPLIC TOP (17:03)
== END 2023-09-30 16:55 | disposition home or self-care (01) ==
PROVIDERS: Emergency Provider Emergency Medicine; Family Provider Student in an Organized Health Care Education/Training Program; PCP Pediatrics
DX: S00.83XA Contusion of other part of head, initial encounter (principal); S41.001A Unspecified open wound of right shoulder, initial encounter; R53.1 Weakness; W18.30XA Fall on same level, unspecified, initial encounter
CPT/HCPCS: 36415; 70450; 71045; 71260; 72125; 74177; 80053; 81003; 81015; 82550; 83605; 83690; 83735; 84145; 84484; 85025; 85610; 85730; 87070; 87075; 87205; 93005; 93010; 97162; 97530; 99284

== ENCOUNTER → 2023-12-26 13:13 | Outpatient (CLI) | payer MEDICARE, SELFPAY ==
[2023-12-26 14:45] LABS: Prostate Specific Antigen < 0.064 ng/mL (0.10-4.00)
== END ==
PROVIDERS: Family Provider Student in an Organized Health Care Education/Training Program; PCP Family Medicine; Referring Provider Specialist; Visit Provider Specialist
DX: C61 Malignant neoplasm of prostate (principal)
CPT/HCPCS: 36415; 84153

== ENCOUNTER → 2024-03-31 10:53 | Outpatient (RCR) | payer MEDICARE, SELFPAY ==
--- NOTE | 2023-02-27 14:44 | ST.OP.ACL ---
Visit Care Team Role Provider Type Travis Lopez MD Attending Provider Physician Family Provider Primary Care Provider Referring Provider Specialty: Internal Medicine Address: [address] [place] [address], [address], [address] Email: [email or web address] Adult Cognitive Linguistic Evaluation [employer] Adult Cognitive Linguistic Eval Start: 02/26/23 17:55 Freq: Status: Active Protocol: Document 02/26/23 17:56 CG (Rec: 02/26/23 18:03 CG [id number]) Adult Cognitive Linguistic Evaluation Session Time Visit Start Time 13:30 Visit Stop Time 14:15 Total Visit Minutes 45 Visit Information Visit Number 1 Plan of Care Dates 02/26/23-04/16/23 Referral Reason for Referral Cognition/memory Setting Assessment Location Outpatient Care Visit Type Note Type Initial evaluation Next Note Type Next Note Type Treatment Note Patient Information Identification Type Name Patient History Maxim Johnson is an 87-year- old male seen at this clinic for a cognitive-linguistic evaluation. The pt has a medical history significant for the following: Basal cell carcinoma, Cardiac arrhythmia, Cataracts, bilateral Colon polyps, Diabetes, Hyperlipemia , Hypertension, Multinodular goiter, Osteopenia, Recurrent prostate cancer, Spinal stenosis, Spondylolisthesis at L4-L5 level, Squamous cell carcinoma, Subclinical hyperthyroidism, TIA (3 years ago), and urinary incontinence . At his most recent PCP visit (01/21/23), he noted gradually worsening symptoms of difficulty concentrating, recalling familiar information , and with word finding. Per PCP report, Symptoms have gradually worsening over a long period of time, but became more noticeable with the recent of his . Reports no hallucinations, disorientation, confabulation, focal neurological signs, presyncope, ALOC. Upon ST interview, the pt and his son reported that his recent cognitive symptoms included missing doctor's appointments and getting behind on bills due to difficulty with organizing and remembering them. He states he experiences forgetfulness of some basic information, such as what he had for lunch or events with family that took place days ago. The pt states that usually he uses a mental association/ visualization strategy to recall information or will write down his appointments in order to remember them, but he may lose the piece of paper where he wrote down appointment information. Additionally, he will sometimes have difficulty with directions and finding new places. The pt's about 13 months ago. Since her passing, the pt's son assisted the pt in selling his house and moving into an independent living facility. His son, Jarod, also helped to set up automated bill pay for his bills. Jarod states he takes care of any bills that cannot be put on auto-pay by checking the pt's mail whenever he visits to look for bills. For medication management, the pt states he uses a system of turning his pill bottle over after he has taken his pills as a visual cue that he has already taken them. He states he previously used a medication organizer but is not currently using one . Pt's son (Jarod) states he believes that the pt began declining in physical function in 2016 after he had back surgery, but that he believes the recent stress and changes have also contributed to the pt's cognitive changes. The pt states he is not very concerned with his cognition, but pt and son wanted to participate in cognitive evaluation to ensure there are no red flags for Alzheimer's/ dementia. Education Level Bachelor's Occupation Status Retired Hearing Hearing Level Normal Previous Therapy Previous Speech-Language Therapy No Subjective Patient Report Pt did not report any pain. He ambulated with a cane to the evaluation room with his son, Jarod, who remained for the duration of the evaluation . Pt and son initially stated they were unclear as to why speech therapy was indicated for cognitive concerns. [employer] provided explanation of [employer] scope of practice and pt and son expressed understanding and were amenable to cognitive evaluation. Mental Status Alert,Responsive,Cooperative Assessment Oral Motor Examination Completed No Informal Assessment Receptive Language Normal Yes Expressive Language Normal Yes Pragmatic Language Normal Yes Speech Normal Yes Cognition Normal No Cognitive Impairment(s) Short-term memory Formal Assessment Standardized Test/Screener Type [facility] Mental Status ([facility]) Administration Complete Results The pt scored a 23/30 on the [facility] Mental Status Examination (UMS). Based on the creators of the [facility], this is indicative of mild neurocognitive disorder. Areas of difficulty for the pt included tasks that required short-term memory, including two-step direction clock drawing task and word recall task. Pt states he had difficulty with word recall task because he did not have time to visualize or associate the items listed. He states this is the strategy he would usually use for recalling an arbitrary list. Findings/Results Language Function Within normal limits Cognitive Function Mildly impaired Findings The patient presents with receptive and expressive language within normal limits and is able to communicate independently at the conversational level with no apparent speech or language concerns. Cognitive function presents as mildly impaired, specifically in the area of short-term memory, based on pt report and results of the SLUMS. It is recommended that treatment initiate with diagnostic treatment session administering subsections of the Scales of Cognitive Communicative Ability for Neurorehabilitation (SCCAN) or another in-depth, higher- level cognitive assessment. This is indicated in order to determine more specifically what tasks are impacted by the pt's short-term memory difficulties in order to develop effective compensatory strategies. Given pt's preexisting familiarity with metacognitive strategies including visualization, prognosis is good for cognitive rehabilitation with a focus on metacognitive strategies and external aids for memory. Cognitive Communication Deficits Self-awareness of Cognitive- Situational awareness ( Communication Deficits recognition of problem in context;in real time) Concomitant Factors Concomitant Factors Other (comment) Comment Recent thyroid function anomalies Impact on Functioning Activity Limits/Particip.Rest. Mild: General Tasks and Demands Community Safety Risks Mild: Reacting to Emergency Managing Medication Traveling Alone in Community Prognosis Prognosis Good Based on Family support,Duration of symptoms/severity Plan of Care Speech-Language Treatment Yes Frequency 1x every 1-2 weeks Duration 4 sessions Patient/Caregiver Education Described results of evaluation,Patient expressed understanding of evaluation, Patient expressed agreement with goals and treatment plans ,Family/caregivers expressed understanding of evaluation, Family/caregivers expressed agreement with goals and treatment plan,Patient requires further education/ training,Family/caregivers require further education/ training Short Term Goals 1. Pt will complete selected subtests of the Scales of Cognitive Communicative Ability for Neurorehabilitation (SCCAN) or another in-depth, higher- level cognitive assessment in order to shape intervention methods and goals. 2. Pt and family will benefit from instruction in the use of compensatory strategies and external aids for memory, as well as general education regarding cognitive health. 3. Pt will utilize compensatory strategies in order to recall a list of 5 after a 3-minute delay. 4. Pt and family will implement external aids for cognition/memory (i.e. calendar, phone calendar, sticky notes, medication organizer, etc) as measured by patient and family report. Skilled Nursing Goals Pt will utilize compensatory strategies and external aids for cognition/memory in order to recall events/appointments and manage medication in 80% of opportunities as measured by pt and family report. Discharge Recommendations Home,Other (comment)
--- NOTE | 2023-02-27 14:45 | ST.OPPOC ---
Physical, Occupational & Speech Therapy At [facility] Visit Care Team Role Provider Type Travis Lopez MD Attending Provider Physician Family Provider Primary Care Provider Referring Provider Address: [address] [place] [address], [address], [place], [address] Speech Pathology Plan of Care Plan of Care Dates 02/26/23-04/16/23 Patient History Maxim Johnson is an 87-year-old male seen at this clinic for a cognitive-linguistic evaluation. The pt has a medical history significant for the following: Basal cell carcinoma, Cardiac arrhythmia, Cataracts, bilateral Colon polyps, Diabetes, Hyperlipemia, Hypertension, Multinodular goiter, Osteopenia, Recurrent prostate cancer, Spinal stenosis, Spondylolisthesis at L4-L5 level, Squamous cell carcinoma, Subclinical hyperthyroidism, TIA (3 years ago), and urinary incontinence. At his most recent PCP visit (01/21/23), he noted gradually worsening symptoms of difficulty concentrating, recalling familiar information, and with word finding. Per PCP report, Symptoms have gradually worsening over a long period of time, but became more noticeable with the recent of his . Reports no hallucinations, disorientation, confabulation, focal neurological signs, presyncope, ALOC. Upon ST interview, the pt and his son reported that his recent cognitive symptoms included missing doctor's appointments and getting behind on bills due to difficulty with organizing and remembering them. He states he experiences forgetfulness of some basic information, such as what he had for lunch or events with family that took place days ago. The pt states that usually he uses a mental association/ visualization strategy to recall information or will write down his appointments in order to remember them, but he may lose the piece of paper where he wrote down appointment information. Additionally, he will sometimes have difficulty with directions and finding new places. The pt's about 13 months ago. Since her passing, the pt's son assisted the pt in selling his house and moving into an independent living facility. His son, Jarod, also helped to set up automated bill pay for his bills. Jarod states he takes care of any bills that cannot be put on auto-pay by checking the pt's mail whenever he visits to look for bills. For medication management, the pt states he uses a system of turning his pill bottle over after he has taken his pills as a visual cue that he has already taken them. He states he previously used a medication organizer but is not currently using one. Pt's son (Jarod) states he believes that the pt began declining in physical function in 2016 after he had back surgery, but that he believes the recent stress and changes have also contributed to the pt's cognitive changes. The pt states he is not very concerned with his cognition, but pt and son wanted to participate in cognitive evaluation to ensure there are no red flags for Alzheimer's/dementia. Self-awareness of Cognitive- Situational awareness (re Communication Deficits General Tasks and Demands Mild Community Mild Reacting to Emergency Mild Managing Medication Mild Traveling Alone in Community Mild Short Term Goals 1. Pt will complete selected subtests of the Scales of Cognitive Communicative Ability for Neurorehabilitation (SCCAN) or another in-depth, higher-level cognitive assessment in order to shape intervention methods and goals. 2. Pt and family will benefit from instruction in the use of compensatory strategies and external aids for memory, as well as general education regarding cognitive health. 3. Pt will utilize compensatory strategies in order to recall a list of 5 after a 3-minute delay. 4. Pt and family will implement external aids for cognition/memory (i.e. calendar, phone calendar, sticky notes, medication organizer, etc) as measured by patient and family report. Manufacturing Baker Goals Pt will utilize compensatory strategies and external aids for cognition/memory in order to recall events/appointments and manage medication in 80% of opportunities as measured by pt and family report. Comment: Electronically Signed by: MELIZA Jung 02/27/23 3446 If you are in agreement with this Plan of Care, please return a signed and dated copy. I have reviewed this Plan of Care and certify that the skilled therapy services above are required to meet the patient?s needs. Physician Signature Date Printed Name and Credentials Clinical Instructor Signature Printed Name and Credentials
--- NOTE | 2023-03-12 17:52 | ST.OPTN ---
Visit Care Team Role Provider Type Travis Lopez MD Attending Provider Physician Family Provider Primary Care Provider Referring Provider Address: [address] [place] [address], [address], [place], [address] OFFENSIVE COORDINATOR Treatment Note OFFENSIVE COORDINATOR Treatment Note Start: 03/12/23 17:28 Freq: Status: Active Protocol: Document 03/12/23 17:28 CG (Rec: 03/12/23 17:52 CG [id number]) Speech Pathology Treatment Note Session Time Visit Start Time 11:45 Visit Stop Time 12:40 Total Visit Minutes 55 Visit Information Visit Number 1 Plan of Care Dates 02/26/23-04/16/23 Setting Treatment Setting Outpatient Care Visit Type Note Type Treatment Note Next Note Type Next Note Type Treatment Note General Information Patient History Maxim Johnson is an 87-year- old male seen at this clinic for a cognitive-linguistic evaluation. The pt has a medical history significant for the following: Basal cell carcinoma, Cardiac arrhythmia, Cataracts, bilateral Colon polyps, Diabetes, Hyperlipemia , Hypertension, Multinodular goiter, Osteopenia, Recurrent prostate cancer, Spinal stenosis, Spondylolisthesis at L4-L5 level, Squamous cell carcinoma, Subclinical hyperthyroidism, TIA (3 years ago), and urinary incontinence . At his most recent PCP visit (01/21/23), he noted gradually worsening symptoms of difficulty concentrating, recalling familiar information , and with word finding. Per PCP report, Symptoms have gradually worsening over a long period of time, but became more noticeable with the recent of his . Reports no hallucinations, disorientation, confabulation, focal neurological signs, presyncope, ALOC. Upon ST interview, the pt and his son reported that his recent cognitive symptoms included missing doctor's appointments and getting behind on bills due to difficulty with organizing and remembering them. He states he experiences forgetfulness of some basic information, such as what he had for lunch or events with family that took place days ago. The pt states that usually he uses a mental association/ visualization strategy to recall information or will write down his appointments in order to remember them, but he may lose the piece of paper where he wrote down appointment information. Additionally, he will sometimes have difficulty with directions and finding new places. The pt's about 13 months ago. Since her passing, the pt's son assisted the pt in selling his house and moving into an independent living facility. His son, Jarod, also helped to set up automated bill pay for his bills. Jarod states he takes care of any bills that cannot be put on auto-pay by checking the pt's mail whenever he visits to look for bills. For medication management, the pt states he uses a system of turning his pill bottle over after he has taken his pills as a visual cue that he has already taken them. He states he previously used a medication organizer but is not currently using one . Pt's son (Jarod) states he believes that the pt began declining in physical function in 2016 after he had back surgery, but that he believes the recent stress and changes have also contributed to the pt's cognitive changes. The pt states he is not very concerned with his cognition, but pt and son wanted to participate in cognitive evaluation to ensure there are no red flags for Alzheimer's/ dementia. Subjective Identification Type Name Others Present Family Observations/Patient Presentation Pt attended the session with his son, Jarod, who was present throughout the remainder of the session. Throughout tx, pt was slightly resistant to feedback regarding the need for cognitive strategies, but was cooperative with diagnostic treatment probes with SCCAN (Scales of Cognitive and Communicative Ability for Neurorehabilitation). Chief Complaint(s) Cognitive Patient Knowledge/Awareness of OFFENSIVE COORDINATOR Role Fair in Treatment Parent/Caretake Knowledge/Awareness of Excellent OFFENSIVE COORDINATOR Role in Treatment Objective Short Term Goals 1. Pt will complete selected subtests of the Scales of Cognitive Communicative Ability for Neurorehabilitation (SCCAN) or another in-depth, higher- level cognitive assessment in order to shape intervention methods and goals. 2. Pt and family will benefit from instruction in the use of compensatory strategies and external aids for memory, as well as general education regarding cognitive health. 3. Pt will utilize compensatory strategies in order to recall a list of 5 after a 3-minute delay. 4. Pt and family will implement external aids for cognition/memory (i.e. calendar, phone calendar, sticky notes, medication organizer, etc) as measured by patient and family report. Drilling Engineer Goals Pt will utilize compensatory strategies and external aids for cognition/memory in order to recall events/appointments and manage medication in 80% of opportunities as measured by pt and family report. Treatment Activities Discussed modifying method of tracking medication intake together with pt and son. Administered SCCAN and discussed results. Discussed areas of concern for IADLs including med management and driving in the community. Assessment Patient Response to Treatment Fair Rehab Potential Good Impairments Identified Cognitive communication Progress Towards Goals Good Progress Comment Compliant with SCCAN administration Assessment of Overall Progress Unchanged Assessment of Improvement All subsections of the SCCAN were administered, minus the Writing subsection. Therefore , scales completed included Oral Expression, Orientation, Memory, Speech Comprehension, Reading Comprehension, Attention, and Problem Solving . The pt's overall raw score was a 74, which falls into the Mild Impairment range according to the authors of the test. This did not include items from the Writing subtest as this was omitted; however, even if the pt scored a full score on the Writing subtest, his overall raw score would be an 81, which would still fall in the Mild Impairment range. Thus, it is safe to say that this is an accurate assessment of current level. For each of the scales assessed, the pt scored the following: -Oral Expression: 95% -Orientation: 92% -Memory: 53% -Speech Comprehension: 100% -Reading Comprehension: 92% -Attention: 75% -Problem Solvin% Assuming the pt scored 100% on the omitted Writing subtest, his raw score equates to a percentile rank of 7 and a SCCAN Index score of 66. Again , this indicates a mild cognitive impairment. The pt was resistant to some suggestions regarding not driving independently and reassessing current med management program. However, he and his son stated they would discuss these changes outside of therapy. Pt and son are amenable to discussing strategies to mitigate effects of memory impairment. Reviewed with Patient Goals Patient/Caregiver Understanding Excellent Plan Amount of Therapy Recommended 2-3 Months Frequency of Treatment Once a Week Length of Session 45 Minutes Treatment Emphasis Next Session External aids Therapeutic Contents Cognitive-Linguistic Training, Other Additional Areas of Treatment Diagnostic tx probes Provided Patient/Caregiver Instruction Plan of Care,Other Comment Current levels Therapy Recommendations Continue with Current Program Suggested Referral Neurology
--- NOTE | 2024-03-26 15:00 | ST.OPDS ---
Visit Care Team Role Provider Type Travis Lopez MD Attending Provider Non-Staff Family Provider Primary Care Provider Referring Provider Address: [address] [place] [address], [address], [address] [employer] Discharge Summary [employer] Discharge Summary Start: 03/12/23 17:28 Freq: Status: Active Protocol: Document 03/26/24 14:57 CG (Rec: 03/26/24 15:00 CG [id number]) Speech Pathology Treatment Note Visit Information Visit Number 1 Plan of Care Dates 02/26/23-04/16/23 Setting Treatment Setting Outpatient Care Visit Type Note Type Discharge Summary General Information Patient History Maxim Johnson is an 87-year- old male seen at this clinic for a cognitive-linguistic evaluation. The pt has a medical history significant for the following: Basal cell carcinoma, Cardiac arrhythmia, Cataracts, bilateral Colon polyps, Diabetes, Hyperlipemia , Hypertension, Multinodular goiter, Osteopenia, Recurrent prostate cancer, Spinal stenosis, Spondylolisthesis at L4-L5 level, Squamous cell carcinoma, Subclinical hyperthyroidism, TIA (3 years ago), and urinary incontinence . At his most recent PCP visit (01/21/23), he noted gradually worsening symptoms of difficulty concentrating, recalling familiar information , and with word finding. Per PCP report, Symptoms have gradually worsening over a long period of time, but became more noticeable with the recent of his . Reports no hallucinations, disorientation, confabulation, focal neurological signs, presyncope, ALOC. Upon ST interview, the pt and his son reported that his recent cognitive symptoms included missing doctor's appointments and getting behind on bills due to difficulty with organizing and remembering them. He states he experiences forgetfulness of some basic information, such as what he had for lunch or events with family that took place days ago. The pt states that usually he uses a mental association/ visualization strategy to recall information or will write down his appointments in order to remember them, but he may lose the piece of paper where he wrote down appointment information. Additionally, he will sometimes have difficulty with directions and finding new places. The pt's about 13 months ago. Since her passing, the pt's son assisted the pt in selling his house and moving into an independent living facility. His son, Jarod, also helped to set up automated bill pay for his bills. Jarod states he takes care of any bills that cannot be put on auto-pay by checking the pt's mail whenever he visits to look for bills. For medication management, the pt states he uses a system of turning his pill bottle over after he has taken his pills as a visual cue that he has already taken them. He states he previously used a medication organizer but is not currently using one . Pt's son (Jarod) states he believes that the pt began declining in physical function in 2016 after he had back surgery, but that he believes the recent stress and changes have also contributed to the pt's cognitive changes. The pt states he is not very concerned with his cognition, but pt and son wanted to participate in cognitive evaluation to ensure there are no red flags for Alzheimer's/ dementia. Subjective Identification Type Name Others Present Family Chief Complaint(s) Cognitive Patient Knowledge/Awareness of [employer] Role Fair in Treatment Parent/Caretake Knowledge/Awareness of Excellent [employer] Role in Treatment Objective Short Term Goals 1. Pt will complete selected subtests of the Scales of Cognitive Communicative Ability for Neurorehabilitation (SCCAN) or another in-depth, higher- level cognitive assessment in order to shape intervention methods and goals. 2. Pt and family will benefit from instruction in the use of compensatory strategies and external aids for memory, as well as general education regarding cognitive health. 3. Pt will utilize compensatory strategies in order to recall a list of 5 after a 3-minute delay. 4. Pt and family will implement external aids for cognition/memory (i.e. calendar, phone calendar, sticky notes, medication organizer, etc) as measured by patient and family report. Usp Goals Pt will utilize compensatory strategies and external aids for cognition/memory in order to recall events/appointments and manage medication in 80% of opportunities as measured by pt and family report. Treatment Activities Treatment consistent of discussing modifying method of tracking medication intake together with pt and son. Administered SCCAN and discussed results. Discussed areas of concern for IADLs including med management and driving in the community. Pt was only seen once with no appointments since March 2023. D/c due to inactivity. Assessment Patient Response to Treatment Fair Rehab Potential Good Impairments Identified Cognitive communication Progress Towards Goals Good Progress Comment Compliant with SCCAN administration Assessment of Overall Progress Unchanged Assessment of Improvement As of last session: All subsections of the SCCAN were administered, minus the Writing subsection. Therefore , scales completed included Oral Expression, Orientation, Memory, Speech Comprehension, Reading Comprehension, Attention, and Problem Solving . The pt's overall raw score was a 74, which falls into the Mild Impairment range according to the authors of the test. This did not include items from the Writing subtest as this was omitted; however, even if the pt scored a full score on the Writing subtest, his overall raw score would be an 81, which would still fall in the Mild Impairment range. Thus, it is safe to say that this is an accurate assessment of current level. For each of the scales assessed, the pt scored the following: -Oral Expression: 95% -Orientation: 92% -Memory: 53% -Speech Comprehension: 100% -Reading Comprehension: 92% -Attention: 75% -Problem Solvin% Assuming the pt scored 100% on the omitted Writing subtest, his raw score equates to a percentile rank of 7 and a SCCAN Index score of 66. Again , this indicates a mild cognitive impairment. The pt was resistant to some suggestions regarding not driving independently and reassessing current med management program. However, he and his son stated they would discuss these changes outside of therapy. Pt and son are amenable to discussing strategies to mitigate effects of memory impairment. Account is being discharged today due to inactivity. Pt has not attended this clinic for speech therapy since March 2023. Plan Amount of Therapy Recommended 2-3 Months Frequency of Treatment Once a Week Length of Session 45 Minutes Treatment Emphasis Next Session External aids Therapeutic Contents Cognitive-Linguistic Training, Other Additional Areas of Treatment Diagnostic tx probes Provided Patient/Caregiver Instruction Plan of Care,Other Comment Current levels Therapy Recommendations Discharge from Speech Therapy Suggested Referral Neurology
== END | disposition home or self-care (01) ==
LOC: SP 02-26 13:06
PROVIDERS: Absent Provider Student in an Organized Health Care Education/Training Program; Family Provider Student in an Organized Health Care Education/Training Program; PCP Student in an Organized Health Care Education/Training Program; Referring Provider Student in an Organized Health Care Education/Training Program; Visit Provider Student in an Organized Health Care Education/Training Program
DX: R41.3 Other amnesia (principal)
CPT/HCPCS: 92523

== ENCOUNTER → 2024-06-22 12:05 | Outpatient (CLI) | payer MEDICARE, SELFPAY ==
[2024-06-22 13:35] LABS: Prostate Specific Antigen < 0.064 ng/mL (0.10-4.00)
== END ==
PROVIDERS: Family Provider Student in an Organized Health Care Education/Training Program; PCP Family Medicine; Referring Provider Specialist; Visit Provider Specialist
DX: C61 Malignant neoplasm of prostate (principal); C77.5 Secondary and unspecified malignant neoplasm of intrapelvic lymph nodes
CPT/HCPCS: 36415; 84153

== ENCOUNTER → 2024-07-02 15:07 | Outpatient (CLI) | payer MEDICARE, SELFPAY | PROVIDERS: Family Provider Student in an Organized Health Care Education/Training Program; PCP Family Medicine; Visit Provider Urology | DX: N39.46 Mixed incontinence (principal) | CPT/HCPCS: 87086 ==

== ENCOUNTER → 2024-09-14 11:42 | Outpatient (CLI) | payer MEDICARE, SELFPAY ==
[2024-09-14 12:50] LABS: Add Manual Diff / Slide Review NO; Basophils Absolute Auto 100 /uL (0-100); Basophils Percent Auto 1.1 % (0-2); Eosinophils Absolute Auto 100 /uL (0-450); Eosinophils Percent Auto 1.9 % (2-4); Hematocrit 40.5 % (41-53); Hemoglobin 13.6 g/dL (13.5-17.5); Lymphocytes Absolute Auto 1700 /uL (1100-4500); Lymphocytes Percent Auto 28.9 % (25-40); Mean Corpuscular HGB Conc 33.6 % (30-36); Mean Corpuscular Hemoglobin 30.1 PG (26-34); Mean Corpuscular Volume 89.4 fL (80-100); Monocytes Absolute Auto 300 /uL (0-900); Monocytes Percent Auto 5.7 % (3-14); Neutrophils Absolute Auto 3700 /uL (1500-7000); Neutrophils Percent Auto 62.4 % (50-75); Platelet Count 183 X10^3/uL (150-400); Red Blood Cell Count 4.53 X10^6/uL (4.5-5.9); Red Cell Distribution Width 13.8 % (11.6-14.8); White Blood Cell Count 5.9 X10^3/uL (4.5-11.0)
[2024-09-14 13:19] LABS: Alanine Aminotransferase 16 IU/L (<50); Albumin 3.9 g/dL (3.5-5.0); Albumin Globulin Ratio 1.6 (1.0-2.8); Alkaline Phosphatase 55 U/L (38-126); Aspartate Aminotransferase 19 IU/L (17-59); Bilirubin Total 0.8 mg/dL (0.2-1.3); Blood Urea Nitrogen 28 mg/dL (9-20); Calcium 9.3 mg/dL (8.4-10.2); Carbon Dioxide 21 mmol/L (22-32); Chloride 109 mmol/L (98-107); Estimated Glomerular Filt Rate > 60 mL/min (>60); Globulin 2.4 g/dL (1.7-4.1); Glucose 126 mg/dL (80-110); HEMOLYSIS < 15 (0-50); Potassium 4.4 mmol/L (3.4-5.1); Sodium 138 mmol/L (137-145); Total Protein 6.3 g/dL (6.3-8.2)
[2024-09-14 13:43] LABS: TSH w/ Reflex to FT4 0.05 uIU/mL (0.47-4.68)
[2024-09-14 14:08] LABS: Free T4, Direct Thyroxine 1.34 ng/dL (0.78-2.19)
== END ==
LOC: LAB 11:43
PROVIDERS: Family Provider Student in an Organized Health Care Education/Training Program; PCP Family Medicine; Referring Provider Family Medicine; Visit Provider Family Medicine
DX: N39.43 Post-void dribbling (principal); E05.90 Thyrotoxicosis, unspecified without thyrotoxic crisis or storm; C61 Malignant neoplasm of prostate; C77.5 Secondary and unspecified malignant neoplasm of intrapelvic lymph nodes; N39.46 Mixed incontinence; R79.89 Other specified abnormal findings of blood chemistry
CPT/HCPCS: 36415; 80053; 84439; 84443; 85025

== ENCOUNTER 2024-09-22 13:45 | Outpatient (RCR) | payer MEDICARE, SELFPAY ==
--- NOTE | 2024-06-02 17:35 | PT.OIE ---
Current Diagnoses Other specific arthropathies, not elsewhere classified, right shoulder (06/02/24) Other specific arthropathies, not elsewhere classified, left shoulder (06/02/24) Pain in right shoulder (06/02/24) Pain in left shoulder (06/02/24) Stiffness of right shoulder, not elsewhere classified (06/02/24) Stiffness of left shoulder, not elsewhere classified (06/02/24) Unspecified rotator cuff tear or rupture of right shoulder, not specified as traumatic (06/02/24) Unspecified rotator cuff tear or rupture of left shoulder, not specified as traumatic (06/02/24) Past Medical History (Last Reviewed 03/18/24 @ 16:12 by Pantera Montes DO) Basal cell carcinoma Biochemically recurrent malignant neoplasm of prostate Cardiac arrhythmia Cataracts, bilateral Colon polyps Diabetes DJD of both shoulders Hyperlipemia Hypertension Multinodular goiter Osteopenia Prostate cancer metastatic to intrapelvic lymph node Recurrent prostate cancer 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 Spinal stenosis Spondylolisthesis at L4-L5 level Squamous cell carcinoma Subclinical hyperthyroidism TIA (transient ischemic attack) Urinary incontinence, mixed Past Surgical History (Last Reviewed 03/18/24 @ 16:12 by Pantera Montes DO) Hx of basal cell carcinoma excision Hx of laminectomy Hx of prostatectomy Hx of squamous cell carcinoma excision Hx of transurethral resection of prostate Visit Care Team Role Provider Type Kimberly Coello DO Primary Care Provider Physician Specialty: Family Practice Address: [address] [place] [address], [address], [place], [address] Email: [email or web address] Travis Lopez MD Family Provider Non-Staff Specialty: Internal Medicine Address: [address] [place] [address], [address], [place], [address] Email: Pantera Montes DO Attending Provider Physician Referring Provider Specialty: Interventional Radiology Physiatry Pain Management Address: [address] [place], [address] Email: [email or web address] Physical Therapy Initial Evaluation PT-OP-A Visit Information Start: 06/02/24 16:57 Freq: Status: Active Protocol: Document 06/02/24 12:00 DCW (Rec: 06/02/24 17:34 DCW [id number]) Out-Patient Physical Therapy Visit Information Visit Information Visit Type Initial Evaluation Visit Start Time 12:00 Visit Stop Time 12:45 Visit Number 1 Number of INVOICING SPECIALIST Visits 0 Evaluation Information Evaluation Date 06/02/24 PT-OP-B Current Condition Start: 06/02/24 16:57 Freq: Status: Active Protocol: Document 06/02/24 12:00 DCW (Rec: 06/02/24 17:34 DCW [id number]) Current Condition History of Current Condition Onset Date A few years Current Complaints R>L shoulder pain, stiffness History of Current Condition Pt is an 89 year old male presenting with a multi-year history of bilateral shoulder pain, notes right significantly worse than left. Pt notes there was no initial injury, just pain worsening over time. Has had multiple injections, but notes no real improvement. Unable to perform any overhead movements. Limited to lifting only very light weight. Personal Factors Other Personal Factors That May Effect CVA history, Alzheimer's Therapy/Recovery PT-OP-C Subjective Start: 06/02/24 16:57 Freq: Status: Active Protocol: Document 06/02/24 12:00 DCW (Rec: 06/02/24 17:34 DCW [id number]) OP-PT Subjective Patient Comments Patient Comments I can swing it like this (pt grabs his right with his left hand and performs passive ROM) . Patient Reported Progress Worse Patient Questionnaires Quick Dash- Upper Extremity Quick Dash UE Score 36.36% Quick Dash UE Impairment 20 to 39% Impaired (Score 20- 39) PT-OP-F Manual Assessment Start: 06/02/24 16:57 Freq: Status: Active Protocol: Document 06/02/24 12:00 DCW (Rec: 06/02/24 17:34 DCW [id number]) Manual Assessments Joint Mobility Assessment Joint Mobility Assessment Significant grinding, popping, and catching with passive R GH movement PT-OP-K Range of Motion Start: 06/02/24 16:57 Freq: Status: Active Protocol: Document 06/02/24 12:00 DCW (Rec: 06/02/24 17:34 DCW [id number]) Shoulder Goniometric Range of Motion Shoulder Right Passive Testing Position Supine Flexion 90 Abduction 85 External Rotation at 0 degrees Abduction 13 Right Active Testing Position Sitting Flexion 62 Abduction 64 External Rotation at 0 degrees Abduction 0 Internal Rotation Behind Back (text) T11 Left Passive Testing Position Supine Flexion 146 Abduction 90 External Rotation at 0 degrees Abduction 30 Left Active Testing Position Sitting Flexion 96 Abduction 79 External Rotation at 0 degrees Abduction 0 Internal Rotation Behind Back (text) T11 PT-OP-L Special Tests Start: 06/02/24 16:57 Freq: Status: Active Protocol: Document 06/02/24 12:00 DCW (Rec: 06/02/24 17:34 [facility] [id number]) Special Tests Shoulder Special Tests Passive ER Rotator Cuff Test Results Positive R Lift-Off Rotator Cuff Test Results Negative Mercer Alonso Impingement Test Results Positive R Grind Labrum Test Results Positive R Empty Can Test Results Negative Clunk Test Test Results Positive R Belly Press Test Results Negative Apprehension Test Test Results Unable to position AC Joint Compression Test Results Negative PT-OP-M Strength Start: 06/02/24 16:57 Freq: Status: Active Protocol: Document 06/02/24 12:00 DCW (Rec: 06/02/24 17:34 [facility] [id number]) Shoulder Strength Shoulder Manual Muscle Testing Right Flexion 2 Poor Abduction (C5) 2 Poor External Rotation 2 Poor Internal Rotation 2 Poor Left Flexion 2+ Poor+ Abduction (C5) 2+ Poor+ External Rotation 2+ Poor+ Internal Rotation 2+ Poor+ PT-OP-Q Treatments Start: 06/02/24 16:57 Freq: Status: Active Protocol: Document 06/02/24 12:00 DCW (Rec: 06/02/24 17:34 [facility] [id number]) Therapeutic Exercises Sitting Exercises Internal Rotation Sitting Exercise Name IR Side bilateral Resistance Lv 2 External Rotation Sitting Exercise Name ER Side bilateral Resistance Lv 2 Rows Sitting Exercise Name Rows Side bilateral Resistance Lv 2 PT-OP-T Assessment and Plan Start: 06/02/24 16:57 Freq: Status: Active Protocol: Document 06/02/24 12:00 DCW (Rec: 06/02/24 17:34 [facility] [id number]) Physical Therapy Assessment Evaluation Complexity Number of Personal Factors/Comorbidities 3 or More Number of Body Systems Impaired 4 or More Clinical Presentation at Evaluation Unstable Impairments Impairments Activity Tolerance,Functional Activities,Functional Mobility ,Pain,ROM,Soft Tissue Mobility ,Strength,Tone Goals Three Impairment Pt reports right shoulder pain often 4-5/10, limiting sleep Retirement Goal (LTG) Pt to reports one full week of pain not exceeding 3/10 to help improve sleep patterns LTG Duration 08/03/24 Two Impairment Significant limitations in R shoulder AROM flexion (62?)/ abduction (64?) Negative Turner Apprentice Goal (LTG) Pt to demonstrate improved shoulder AROM to 110? with both flexion and abduction bilaterally in order to improve ability to lift objects overhead into kitchen cabinets. LTG Duration 08/03/24 One Impairment Pt does not have an appropriate home exercise program Short Term Goal (STG) Pt to be independent and compliant with an appropriate HEP STG Duration 07/03/24 Assessment Summary Assessment Pt presents with signs and symptoms consistent with referring diagnosis. Pt extremely limited with shoulder mobility bilaterally, although right significantly worse than left. Substantial GH joint popping and grinding with all passive movements. Appears to demonstrate fairly significant degenerative changes, may also be indicative of labral involvement. Future axial imaging my be beneficial, although pt notes that he is too old to be going under the knife anyway. Pt may benefit from skilled therapy intervention focusing on joint mobilizations, shoulder strengthening, decreased muscle tone, and increased activity tolerance. Physical Therapy Plan Frequency and Duration Frequency of Treatment 2x/Week Plan of Care Start Date 06/02/24 Plan of Care End Date 08/03/24 Therapeutic Interventions Therapeutic Interventions Home Exercise Program,Joint Mobilizations,Manual Therapy, Neuromuscular Re-education, Patient/Caregiver Education, Self-Care/Home Management,Soft Tissue Mobilization, Therapeutic Activities, Therapeutic Exercises Modalities Cold Pack/Ice Massage,Hot Packs Next Visit Focus/Plan Next Note Type Treatment Note Next Visit Plan PROM/stretching, gentle strengthening, improving activity tolerance
--- NOTE | 2024-06-02 17:35 | PT.OPPOC ---
Physical, Occupational & Speech Therapy At [facility] Current Diagnoses Other specific arthropathies, not elsewhere classified, right shoulder (06/02/24) Other specific arthropathies, not elsewhere classified, left shoulder (06/02/24) Pain in right shoulder (06/02/24) Pain in left shoulder (06/02/24) Stiffness of right shoulder, not elsewhere classified (06/02/24) Stiffness of left shoulder, not elsewhere classified (06/02/24) Unspecified rotator cuff tear or rupture of right shoulder, not specified as traumatic (06/02/24) Unspecified rotator cuff tear or rupture of left shoulder, not specified as traumatic (06/02/24) Visit Care Team Role Provider Type Kimberly Coello DO Primary Care Provider Physician Specialty: Family Practice Address: [address] [place] [address], [address], [address] Email: [email or web address] Travis Lopez MD Family Provider Non-Staff Specialty: Internal Medicine Address: [address] [place] [address], [address], [address] Email: Pantera Montes DO Attending Provider Physician Referring Provider Specialty: Interventional Radiology Physiatry Pain Management Address: [facility] [place], [address] Email: [email or web address] Plan Of Care PT-OP-B Current Condition Start: 06/02/24 16:57 Freq: Status: Active Protocol: Document 06/02/24 12:00 DCW (Rec: 06/02/24 17:34 DCW [id number]) Current Condition History of Current Condition Onset Date A few years Current Complaints R>L shoulder pain, stiffness History of Current Condition Pt is an 89 year old male presenting with a multi-year history of bilateral shoulder pain, notes right significantly worse than left. Pt notes there was no initial injury, just pain worsening over time. Has had multiple injections, but notes no real improvement. Unable to perform any overhead movements. Limited to lifting only very light weight. Personal Factors Other Personal Factors That May Effect CVA history, Alzheimer's Therapy/Recovery PT-OP-T Assessment and Plan Start: 06/02/24 16:57 Freq: Status: Active Protocol: Document 06/02/24 12:00 DCW (Rec: 06/02/24 17:34 DCW [id number]) Physical Therapy Assessment Evaluation Complexity Number of Personal Factors/Comorbidities 3 or More Number of Body Systems Impaired 4 or More Clinical Presentation at Evaluation Unstable Impairments Impairments Activity Tolerance,Functional Activities,Functional Mobility ,Pain,ROM,Soft Tissue Mobility ,Strength,Tone Goals Three Impairment Pt reports right shoulder pain often 4-5/10, limiting sleep Connie Scratcher Goal (LTG) Pt to reports one full week of pain not exceeding 3/10 to help improve sleep patterns LTG Duration 08/03/24 Two Impairment Significant limitations in R shoulder AROM flexion (62?)/ abduction (64?) Connie Scratcher Goal (LTG) Pt to demonstrate improved shoulder AROM to 110? with both flexion and abduction bilaterally in order to improve ability to lift objects overhead into kitchen cabinets. LTG Duration 08/03/24 One Impairment Pt does not have an appropriate home exercise program Short Term Goal (STG) Pt to be independent and compliant with an appropriate HEP STG Duration 07/03/24 Assessment Summary Assessment Pt presents with signs and symptoms consistent with referring diagnosis. Pt extremly limited with shoulder mobility bilaterally, although right significantly worse than left. Substantial GH joint popping and grinding with all passive movements. Appears to demonstrate fairly significant degenerative changes, may also be indicative of labral involvement. Future axial imaging my be beneficial, although pt notes that he is too old to be going under the knife anyway. Pt may benefit from skilled therapy intervention focusing on joint mobilizations, shoulder strengthening, decreased muscle tone, and increased activity tolerance. Physical Therapy Plan Frequency and Duration Frequency of Treatment 2x/Week Plan of Care Start Date 06/02/24 Plan of Care End Date 08/03/24 Therapeutic Interventions Therapeutic Interventions Home Exercise Program,Joint Mobilizations,Manual Therapy, Neuromuscular Re-education, Patient/Caregiver Education, Self-Care/Home Management,Soft Tissue Mobilization, Therapeutic Activities, Therapeutic Exercises Modalities Cold Pack/Ice Massage,Hot Packs Next Visit Focus/Plan Next Note Type Treatment Note Next Visit Plan PROM/stretching, gentle strengthening, improving activity tolerance Plan of Care Dates Plan of Care Start Date 06/02/24 Plan of Care End Date 08/03/24 Electronically Signed by: Tripp Hatch, PT 06/02/24 0070 If you are in agreement with this Plan of Care, please return a signed and dated copy. I have reviewed this Plan of Care and certify that the skilled therapy services above are required to meet the patient?s needs. Physician Signature Date Printed Name and Credentials Clinical Instructor Signature Printed Name and Credentials
--- NOTE | 2024-06-05 12:46 | PT.OTN ---
Current Diagnoses Other specific arthropathies, not elsewhere classified, right shoulder (06/05/24) Other specific arthropathies, not elsewhere classified, left shoulder (06/05/24) Pain in right shoulder (06/05/24) Pain in left shoulder (06/05/24) Stiffness of right shoulder, not elsewhere classified (06/05/24) Stiffness of left shoulder, not elsewhere classified (06/05/24) Unspecified rotator cuff tear or rupture of right shoulder, not specified as traumatic (06/05/24) Unspecified rotator cuff tear or rupture of left shoulder, not specified as traumatic (06/05/24) Physical Therapy Treatment Note PT-OP-A Visit Information Start: 06/02/24 16:57 Freq: Status: Active Protocol: Document 06/05/24 12:01 DCW (Rec: 06/05/24 12:46 DCW [id number]) Out-Patient Physical Therapy Visit Information Visit Information Visit Type Treatment Note Visit Start Time 12:01 Visit Stop Time 12:45 Visit Number 2 Number of JOURNEYMAN SHEET METAL WORKER Visits 0 Evaluation Information Evaluation Date 06/02/24 PT-OP-B Current Condition Start: 06/02/24 16:57 Freq: Status: Active Protocol: Document 06/02/24 12:00 DCW (Rec: 06/02/24 17:34 DCW [id number]) Current Condition History of Current Condition Onset Date A few years Current Complaints R>L shoulder pain, stiffness History of Current Condition Pt is an 89 year old male presenting with a multi-year history of bilateral shoulder pain, notes right significantly worse than left. Pt notes there was no initial injury, just pain worsening over time. Has had multiple injections, but notes no real improvement. Unable to perform any overhead movements. Limited to lifting only very light weight. Personal Factors Other Personal Factors That May Effect CVA history, Alzheimer's Therapy/Recovery PT-OP-C Subjective Start: 06/02/24 16:57 Freq: Status: Active Protocol: Document 06/05/24 12:01 DCW (Rec: 06/05/24 12:46 DCW [id number]) OP-PT Subjective Patient Comments Patient Comments Well, I think I might be doing alright, and I'm not accepting any other opinions. PT-OP-F Manual Assessment Start: 06/02/24 16:57 Freq: Status: Active Protocol: Document 06/02/24 12:00 DCW (Rec: 06/02/24 17:34 DCW [id number]) Manual Assessments Joint Mobility Assessment Joint Mobility Assessment Significant grinding, popping, and catching with passive R GH movement PT-OP-K Range of Motion Start: 06/02/24 16:57 Freq: Status: Active Protocol: Document 06/02/24 12:00 DCW (Rec: 06/02/24 17:34 DCW [id number]) Shoulder Goniometric Range of Motion Shoulder Right Passive Testing Position Supine Flexion 90 Abduction 85 External Rotation at 0 degrees Abduction 13 Right Active Testing Position Sitting Flexion 62 Abduction 64 External Rotation at 0 degrees Abduction 0 Internal Rotation Behind Back (text) T11 Left Passive Testing Position Supine Flexion 146 Abduction 90 External Rotation at 0 degrees Abduction 30 Left Active Testing Position Sitting Flexion 96 Abduction 79 External Rotation at 0 degrees Abduction 0 Internal Rotation Behind Back (text) T11 PT-OP-L Special Tests Start: 06/02/24 16:57 Freq: Status: Active Protocol: Document 06/02/24 12:00 DCW (Rec: 06/02/24 17:34 DCW [id number]) Special Tests Shoulder Special Tests Passive ER Rotator Cuff Test Results Positive R Lift-Off Rotator Cuff Test Results Negative Mercer Alonso Impingement Test Results Positive R Grind Labrum Test Results Positive R Empty Can Test Results Negative Clunk Test Test Results Positive R Belly Press Test Results Negative Apprehension Test Test Results Unable to position AC Joint Compression Test Results Negative PT-OP-M Strength Start: 06/02/24 16:57 Freq: Status: Active Protocol: Document 06/02/24 12:00 DCW (Rec: 06/02/24 17:34 DCW [id number]) Shoulder Strength Shoulder Manual Muscle Testing Right Flexion 2 Poor Abduction (C5) 2 Poor External Rotation 2 Poor Internal Rotation 2 Poor Left Flexion 2+ Poor+ Abduction (C5) 2+ Poor+ External Rotation 2+ Poor+ Internal Rotation 2+ Poor+ PT-OP-Q Treatments Start: 06/02/24 16:57 Freq: Status: Active Protocol: Document 06/05/24 12:01 DCW (Rec: 06/05/24 12:46 DCW [id number]) Cardio Equipment Upper Body Ergometer (UBE) Duration (Minutes) 4 Seat Position 11 Height 2.5 Therapeutic Exercises Supine Exercises ER Supine Exercise Name ER /c PVC Side bilateral Comments Semi-reclined Flexion Supine Exercise Name Flexion /c PVC Side bilateral Comments Semi-reclined Sitting Exercises Extension Sitting Exercise Name Shoulder Extension Side bilateral Resistance [place] Flexion Sitting Exercise Name Shoulder Flexion Side bilateral Resistance 1# Abduction Sitting Exercise Name Shoulder Abduction Side bilateral Resistance 1# Curls Sitting Exercise Name Reverse Curls /c PVC PROM Sitting Exercise Name Pulleys - Flexion, Abduction Side bilateral Rows Sitting Exercise Name Rows Side bilateral Resistance [place] Manual Therapy Treatment Consent Patient gave verbal consent for manual Yes treatment Other Other Manual Treatments Therapist-driven PROM PT-OP-T Assessment and Plan Start: 06/02/24 16:57 Freq: Status: Active Protocol: Document 06/05/24 12:01 DCW (Rec: 06/05/24 12:46 DCW [id number]) Physical Therapy Assessment Impairments Impairments Activity Tolerance,Functional Activities,Functional Mobility ,Pain,ROM,Soft Tissue Mobility ,Strength,Tone Goals Three Impairment Pt reports right shoulder pain often 4-5/10, limiting sleep Die Casting Supervisor Goal (LTG) Pt to reports one full week of pain not exceeding 3/10 to help improve sleep patterns LTG Duration 08/03/24 Two Impairment Significant limitations in R shoulder AROM flexion (62?)/ abduction (64?) Prison Goal (LTG) Pt to demonstrate improved shoulder AROM to 110? with both flexion and abduction bilaterally in order to improve ability to lift objects overhead into kitchen cabinets. LTG Duration 08/03/24 One Impairment Pt does not have an appropriate home exercise program Short Term Goal (STG) Pt to be independent and compliant with an appropriate HEP STG Duration 07/03/24 Assessment Summary Assessment Pt fairly limited with mobility and strength secondary to degenerative joint and pain. Did have fairly good response to treatment, but quick to fatigue. Continue to work on shoulder mobility and strength . Physical Therapy Plan Frequency and Duration Frequency of Treatment 2x/Week Plan of Care Start Date 06/02/24 Plan of Care End Date 08/03/24 Therapeutic Interventions Therapeutic Interventions Home Exercise Program,Joint Mobilizations,Manual Therapy, Neuromuscular Re-education, Patient/Caregiver Education, Self-Care/Home Management,Soft Tissue Mobilization, Therapeutic Activities, Therapeutic Exercises Modalities Cold Pack/Ice Massage,Hot Packs Next Visit Focus/Plan Next Note Type Treatment Note Next Visit Plan PROM/stretching, gentle strengthening, improving activity tolerance
--- NOTE | 2024-06-08 15:52 | PT.OTN ---
Current Diagnoses Other specific arthropathies, not elsewhere classified, right shoulder (06/08/24) Other specific arthropathies, not elsewhere classified, left shoulder (06/08/24) Pain in right shoulder (06/08/24) Pain in left shoulder (06/08/24) Stiffness of right shoulder, not elsewhere classified (06/08/24) Stiffness of left shoulder, not elsewhere classified (06/08/24) Unspecified rotator cuff tear or rupture of right shoulder, not specified as traumatic (06/08/24) Unspecified rotator cuff tear or rupture of left shoulder, not specified as traumatic (06/08/24) Physical Therapy Treatment Note PT-OP-A Visit Information Start: 06/02/24 16:57 Freq: Status: Active Protocol: Document 06/08/24 12:57 AB (Rec: 06/08/24 13:49 AB [id number]) Out-Patient Physical Therapy Visit Information Visit Information Visit Type Treatment Note Visit Note Patient late Visit Start Time 13:07 Visit Stop Time 13:46 Visit Number 3 Number of FINANCIAL COORDINATOR Visits 1 Evaluation Information Evaluation Date 06/02/24 PT-OP-B Current Condition Start: 06/02/24 16:57 Freq: Status: Active Protocol: Document 06/02/24 12:00 DCW (Rec: 06/02/24 17:34 DCW [id number]) Current Condition History of Current Condition Onset Date A few years Current Complaints R>L shoulder pain, stiffness History of Current Condition Pt is an 89 year old male presenting with a multi-year history of bilateral shoulder pain, notes right significantly worse than left. Pt notes there was no initial injury, just pain worsening over time. Has had multiple injections, but notes no real improvement. Unable to perform any overhead movements. Limited to lifting only very light weight. Personal Factors Other Personal Factors That May Effect CVA history, Alzheimer's Therapy/Recovery PT-OP-C Subjective Start: 06/02/24 16:57 Freq: Status: Active Protocol: Document 06/08/24 12:57 AB (Rec: 06/08/24 13:49 AB [id number]) OP-PT Subjective Patient Comments Patient Comments Patient reports the shoulders are the same, forgot to do the exercises. 100 deg right 125 deg left AROM shoulder flexion start of session PT-OP-F Manual Assessment Start: 06/02/24 16:57 Freq: Status: Active Protocol: Document 06/02/24 12:00 DCW (Rec: 06/02/24 17:34 DCW [id number]) Manual Assessments Joint Mobility Assessment Joint Mobility Assessment Significant grinding, popping, and catching with passive R GH movement PT-OP-K Range of Motion Start: 06/02/24 16:57 Freq: Status: Active Protocol: Document 06/02/24 12:00 DCW (Rec: 06/02/24 17:34 DCW [id number]) Shoulder Goniometric Range of Motion Shoulder Right Passive Testing Position Supine Flexion 90 Abduction 85 External Rotation at 0 degrees Abduction 13 Right Active Testing Position Sitting Flexion 62 Abduction 64 External Rotation at 0 degrees Abduction 0 Internal Rotation Behind Back (text) T11 Left Passive Testing Position Supine Flexion 146 Abduction 90 External Rotation at 0 degrees Abduction 30 Left Active Testing Position Sitting Flexion 96 Abduction 79 External Rotation at 0 degrees Abduction 0 Internal Rotation Behind Back (text) T11 PT-OP-L Special Tests Start: 06/02/24 16:57 Freq: Status: Active Protocol: Document 06/02/24 12:00 DCW (Rec: 06/02/24 17:34 DCW [id number]) Special Tests Shoulder Special Tests Passive ER Rotator Cuff Test Results Positive R Lift-Off Rotator Cuff Test Results Negative Mercer Alonso Impingement Test Results Positive R Grind Labrum Test Results Positive R Empty Can Test Results Negative Clunk Test Test Results Positive R Belly Press Test Results Negative Apprehension Test Test Results Unable to position AC Joint Compression Test Results Negative PT-OP-M Strength Start: 06/02/24 16:57 Freq: Status: Active Protocol: Document 06/02/24 12:00 DCW (Rec: 06/02/24 17:34 DCW [id number]) Shoulder Strength Shoulder Manual Muscle Testing Right Flexion 2 Poor Abduction (C5) 2 Poor External Rotation 2 Poor Internal Rotation 2 Poor Left Flexion 2+ Poor+ Abduction (C5) 2+ Poor+ External Rotation 2+ Poor+ Internal Rotation 2+ Poor+ PT-OP-Q Treatments Start: 06/02/24 16:57 Freq: Status: Active Protocol: Document 06/08/24 12:57 AB (Rec: 06/08/24 13:49 AB [id number]) Therapeutic Exercises Supine Exercises Flexion Supine Exercise Name 1. with elbow flexed Side bilateral Reps/Minutes X5 Comments Semi-reclined Sitting Exercises Flexion Sitting Exercise Name Shoulder Flexion Side bilateral Resistance isometric, manual resistance Reps/Minutes X5 Internal Rotation Sitting Exercise Name IR Side bilateral Resistance Lv 2 Reps/Minutes X10 each UE Comments verbal cues External Rotation Sitting Exercise Name ER Side bilateral Resistance Lv 2 Reps/Minutes X10 each UE Comments verbal cues Rows Sitting Exercise Name Rows Side bilateral Resistance level 2 band Reps/Minutes X10 Comments verbal cues Manual Therapy Treatment Soft Tissue Mobilization bilateral shoulders Body Location pec, post cuff, biceps right> left, UT, levator scap Mobilization Type Cross-Friction,Rolling Intensity/Depth Superficial Body Position Hooklying Joint Mobilizations scapular mobilization Joint bilateral scapula Direction into depression and adduction Grade III Body Position Hooklying Reps/Duration X10 each direction each shoulder PT-OP-T Assessment and Plan Start: 06/02/24 16:57 Freq: Status: Active Protocol: Document 06/08/24 12:57 AB (Rec: 06/08/24 13:49 AB [id number]) Physical Therapy Assessment Impairments Impairments Activity Tolerance,Functional Activities,Functional Mobility ,Pain,ROM,Soft Tissue Mobility ,Strength,Tone Goals Three Impairment Pt reports right shoulder pain often 4-5/10, limiting sleep Mcc Goal (LTG) Pt to reports one full week of pain not exceeding 3/10 to help improve sleep patterns LTG Duration 08/03/24 Two Impairment Significant limitations in R shoulder AROM flexion (62?)/ abduction (64?) Mcc Goal (LTG) Pt to demonstrate improved shoulder AROM to 110? with both flexion and abduction bilaterally in order to improve ability to lift objects overhead into kitchen cabinets. LTG Duration 08/03/24 One Impairment Pt does not have an appropriate home exercise program Short Term Goal (STG) Pt to be independent and compliant with an appropriate HEP STG Duration 07/03/24 Assessment Summary Assessment AROM right shoulder flexion 95 deg end of session. Patient reports having a little more pain end of session. Physical Therapy Plan Frequency and Duration Frequency of Treatment 2x/Week Plan of Care Start Date 06/02/24 Plan of Care End Date 08/03/24 Next Visit Focus/Plan Next Note Type Treatment Note Next Visit Plan PROM/stretching, gentle strengthening, improving activity tolerance
--- NOTE | 2024-06-10 16:16 | PT.OTN ---
Current Diagnoses Other specific arthropathies, not elsewhere classified, right shoulder (06/10/24) Other specific arthropathies, not elsewhere classified, left shoulder (06/10/24) Pain in right shoulder (06/10/24) Pain in left shoulder (06/10/24) Stiffness of right shoulder, not elsewhere classified (06/10/24) Stiffness of left shoulder, not elsewhere classified (06/10/24) Unspecified rotator cuff tear or rupture of right shoulder, not specified as traumatic (06/10/24) Unspecified rotator cuff tear or rupture of left shoulder, not specified as traumatic (06/10/24) Physical Therapy Treatment Note PT-OP-A Visit Information Start: 06/02/24 16:57 Freq: Status: Active Protocol: Document 06/10/24 13:23 AB (Rec: 06/10/24 16:16 AB [id number]) Out-Patient Physical Therapy Visit Information Visit Information Visit Type Treatment Note Visit Note Access Code [email or web address] Visit Start Time 14:33 Visit Stop Time 15:16 Visit Number 4 Number of RUSSIAN TEACHER Visits 2 Evaluation Information Evaluation Date 06/02/24 PT-OP-B Current Condition Start: 06/02/24 16:57 Freq: Status: Active Protocol: Document 06/02/24 12:00 DCW (Rec: 06/02/24 17:34 DCW [id number]) Current Condition History of Current Condition Onset Date A few years Current Complaints R>L shoulder pain, stiffness History of Current Condition Pt is an 89 year old male presenting with a multi-year history of bilateral shoulder pain, notes right significantly worse than left. Pt notes there was no initial injury, just pain worsening over time. Has had multiple injections, but notes no real improvement. Unable to perform any overhead movements. Limited to lifting only very light weight. Personal Factors Other Personal Factors That May Effect CVA history, Alzheimer's Therapy/Recovery PT-OP-C Subjective Start: 06/02/24 16:57 Freq: Status: Active Protocol: Document 06/10/24 13:23 AB (Rec: 06/10/24 16:16 AB [id number]) OP-PT Subjective Patient Comments Patient Comments Patient/Son report patient did the exercises yesterday. Patient reports the shoulders are the same. left 109 deg right 90 deg AROM shoulder flexion int scaption start of session. PT-OP-F Manual Assessment Start: 06/02/24 16:57 Freq: Status: Active Protocol: Document 06/02/24 12:00 DCW (Rec: 06/02/24 17:34 DCW [id number]) Manual Assessments Joint Mobility Assessment Joint Mobility Assessment Significant grinding, popping, and catching with passive R GH movement PT-OP-K Range of Motion Start: 06/02/24 16:57 Freq: Status: Active Protocol: Document 06/02/24 12:00 DCW (Rec: 06/02/24 17:34 DCW [id number]) Shoulder Goniometric Range of Motion Shoulder Right Passive Testing Position Supine Flexion 90 Abduction 85 External Rotation at 0 degrees Abduction 13 Right Active Testing Position Sitting Flexion 62 Abduction 64 External Rotation at 0 degrees Abduction 0 Internal Rotation Behind Back (text) T11 Left Passive Testing Position Supine Flexion 146 Abduction 90 External Rotation at 0 degrees Abduction 30 Left Active Testing Position Sitting Flexion 96 Abduction 79 External Rotation at 0 degrees Abduction 0 Internal Rotation Behind Back (text) T11 PT-OP-L Special Tests Start: 06/02/24 16:57 Freq: Status: Active Protocol: Document 06/02/24 12:00 DCW (Rec: 06/02/24 17:34 DCW [id number]) Special Tests Shoulder Special Tests Passive ER Rotator Cuff Test Results Positive R Lift-Off Rotator Cuff Test Results Negative Mercer Alonso Impingement Test Results Positive R Grind Labrum Test Results Positive R Empty Can Test Results Negative Clunk Test Test Results Positive R Belly Press Test Results Negative Apprehension Test Test Results Unable to position AC Joint Compression Test Results Negative PT-OP-M Strength Start: 06/02/24 16:57 Freq: Status: Active Protocol: Document 06/02/24 12:00 DCW (Rec: 06/02/24 17:34 DCW [id number]) Shoulder Strength Shoulder Manual Muscle Testing Right Flexion 2 Poor Abduction (C5) 2 Poor External Rotation 2 Poor Internal Rotation 2 Poor Left Flexion 2+ Poor+ Abduction (C5) 2+ Poor+ External Rotation 2+ Poor+ Internal Rotation 2+ Poor+ PT-OP-Q Treatments Start: 06/02/24 16:57 Freq: Status: Active Protocol: Document 06/10/24 13:23 AB (Rec: 06/10/24 16:16 AB [id number]) Therapeutic Exercises Supine Exercises isometric reactives Supine Exercise Name shoulder ER and IR Side bilateral Resistance level one band Reps/Minutes X10 each each UE Comments Verbal cues to hold UE in place Flexion Supine Exercise Name 1. with elbow flexed Side bilateral Reps/Minutes X10 Comments Semi-reclined Sitting Exercises Flexion Sitting Exercise Name Shoulder Flexion HEP Side bilateral Resistance with dowel Reps/Minutes X10 PROM Sitting Exercise Name Pulleys - Flexion, Abduction Side bilateral Reps/Minutes 2+ min flex 1+ min abd Rows Sitting Exercise Name Rows Side bilateral Resistance level 1 band Reps/Minutes X10 Comments verbal cues Manual Therapy Treatment Soft Tissue Mobilization bilateral shoulders Body Location pec, post cuff, biceps right> left, UT, levator scap Mobilization Type Cross-Friction,Rolling Intensity/Depth Superficial Body Position Hooklying Joint Mobilizations scapular mobilization Joint bilateral scapula Direction into depression and adduction Grade III Body Position Hooklying Reps/Duration X10 each direction each shoulder Manual Techniques PROM Type shoulder flex and ER bilaterally Body Position Hooklying Reps/Duration 5-6 reps each movement each UE Comments contract relax contract for ER PT-OP-T Assessment and Plan Start: 06/02/24 16:57 Freq: Status: Active Protocol: Document 06/10/24 13:23 AB (Rec: 06/10/24 16:16 AB [id number]) Physical Therapy Assessment Goals Three Impairment Pt reports right shoulder pain often 4-5/10, limiting sleep Retirement Goal (LTG) Pt to reports one full week of pain not exceeding 3/10 to help improve sleep patterns LTG Duration 08/03/24 Two Impairment Significant limitations in R shoulder AROM flexion (62?)/ abduction (64?) Filler And Trimmer Goal (LTG) Pt to demonstrate improved shoulder AROM to 110? with both flexion and abduction bilaterally in order to improve ability to lift objects overhead into kitchen cabinets. LTG Duration 08/03/24 One Impairment Pt does not have an appropriate home exercise program Short Term Goal (STG) Pt to be independent and compliant with an appropriate HEP STG Duration 07/03/24 Assessment Summary Assessment Regarding pain end of session patient comments that he hurts more when he falls out of bed . AROM left 101 deg right 94 deg end of session flexion but moves into scaption pattern. Physical Therapy Plan Frequency and Duration Frequency of Treatment 2x/Week Plan of Care Start Date 06/02/24 Plan of Care End Date 08/03/24 Next Visit Focus/Plan Next Note Type Treatment Note Next Visit Plan PROM/stretching, gentle strengthening, improving activity tolerance
--- NOTE | 2024-06-18 15:03 | PT.OTN ---
Current Diagnoses Other specific arthropathies, not elsewhere classified, right shoulder (06/18/24) Other specific arthropathies, not elsewhere classified, left shoulder (06/18/24) Pain in right shoulder (06/18/24) Pain in left shoulder (06/18/24) Stiffness of right shoulder, not elsewhere classified (06/18/24) Stiffness of left shoulder, not elsewhere classified (06/18/24) Unspecified rotator cuff tear or rupture of right shoulder, not specified as traumatic (06/18/24) Unspecified rotator cuff tear or rupture of left shoulder, not specified as traumatic (06/18/24) Physical Therapy Treatment Note PT-OP-A Visit Information Start: 06/02/24 16:57 Freq: Status: Active Protocol: Document 06/18/24 12:56 AB (Rec: 06/18/24 13:49 AB [id number]) Out-Patient Physical Therapy Visit Information Visit Information Visit Type Treatment Note Visit Note Access Code [email or web address] Visit Start Time 13:03 Visit Stop Time 13:44 Visit Number 5 Number of STACKER ATTENDANT Visits 3 Evaluation Information Evaluation Date 06/02/24 PT-OP-B Current Condition Start: 06/02/24 16:57 Freq: Status: Active Protocol: Document 06/02/24 12:00 DCW (Rec: 06/02/24 17:34 DCW [id number]) Current Condition History of Current Condition Onset Date A few years Current Complaints R>L shoulder pain, stiffness History of Current Condition Pt is an 89 year old male presenting with a multi-year history of bilateral shoulder pain, notes right significantly worse than left. Pt notes there was no initial injury, just pain worsening over time. Has had multiple injections, but notes no real improvement. Unable to perform any overhead movements. Limited to lifting only very light weight. Personal Factors Other Personal Factors That May Effect CVA history, Alzheimer's Therapy/Recovery PT-OP-C Subjective Start: 06/02/24 16:57 Freq: Status: Active Protocol: Document 06/18/24 12:56 AB (Rec: 06/18/24 13:49 AB [id number]) OP-PT Subjective Patient Comments Patient Comments Son reports he has to phone patient and they do the exercises over the phone as patient will not do the exercises on his own. Son reports the raising arm overhead with cane is too painful. PT-OP-F Manual Assessment Start: 06/02/24 16:57 Freq: Status: Active Protocol: Document 06/02/24 12:00 DCW (Rec: 06/02/24 17:34 DCW [id number]) Manual Assessments Joint Mobility Assessment Joint Mobility Assessment Significant grinding, popping, and catching with passive R GH movement PT-OP-K Range of Motion Start: 06/02/24 16:57 Freq: Status: Active Protocol: Document 06/02/24 12:00 DCW (Rec: 06/02/24 17:34 DCW [id number]) Shoulder Goniometric Range of Motion Shoulder Right Passive Testing Position Supine Flexion 90 Abduction 85 External Rotation at 0 degrees Abduction 13 Right Active Testing Position Sitting Flexion 62 Abduction 64 External Rotation at 0 degrees Abduction 0 Internal Rotation Behind Back (text) T11 Left Passive Testing Position Supine Flexion 146 Abduction 90 External Rotation at 0 degrees Abduction 30 Left Active Testing Position Sitting Flexion 96 Abduction 79 External Rotation at 0 degrees Abduction 0 Internal Rotation Behind Back (text) T11 PT-OP-L Special Tests Start: 06/02/24 16:57 Freq: Status: Active Protocol: Document 06/02/24 12:00 DCW (Rec: 06/02/24 17:34 DCW [id number]) Special Tests Shoulder Special Tests Passive ER Rotator Cuff Test Results Positive R Lift-Off Rotator Cuff Test Results Negative Mercer Alonso Impingement Test Results Positive R Grind Labrum Test Results Positive R Empty Can Test Results Negative Clunk Test Test Results Positive R Belly Press Test Results Negative Apprehension Test Test Results Unable to position AC Joint Compression Test Results Negative PT-OP-M Strength Start: 06/02/24 16:57 Freq: Status: Active Protocol: Document 06/02/24 12:00 DCW (Rec: 06/02/24 17:34 DCW [id number]) Shoulder Strength Shoulder Manual Muscle Testing Right Flexion 2 Poor Abduction (C5) 2 Poor External Rotation 2 Poor Internal Rotation 2 Poor Left Flexion 2+ Poor+ Abduction (C5) 2+ Poor+ External Rotation 2+ Poor+ Internal Rotation 2+ Poor+ PT-OP-Q Treatments Start: 06/02/24 16:57 Freq: Status: Active Protocol: Document 06/18/24 12:56 AB (Rec: 06/18/24 13:49 AB [id number]) Therapeutic Exercises Supine Exercises isometric reactives Supine Exercise Name shoulder ER and IR Side bilateral Resistance level one band Reps/Minutes X10 each each UE Comments Verbal cues to hold UE in place Flexion Supine Exercise Name 1. with elbow flexed Side right Reps/Minutes X1 Comments Not maxim Sitting Exercises Flexion Sitting Exercise Name Table slide Side bilateral Reps/Minutes X10 Comments on slideboard with towel, verbal and visual cues External Rotation Sitting Exercise Name ER seated AROM with UE on mat at table height Side bilateral Reps/Minutes X10 Standing Exercises Isometrics Standing Exercise Name standing with left UE support UE on mat. Flex and ext Side right Resistance level one band Reps/Minutes X10 each L stretch Standing Exercise Name flexion PROM body over UE movement, son to perform with patient in home Side bilateral Reps/Minutes X10 Comments verbal and visual cues, supervision prior to patient alone Manual Therapy Treatment Soft Tissue Mobilization bilateral shoulders Body Location right shoulder Mobilization Type Cross-Friction,Rolling Intensity/Depth Superficial Body Position Hooklying Joint Mobilizations scapular mobilization Joint bilateral scapula Direction into depression and adduction Grade III Body Position Hooklying Reps/Duration X10 each direction each shoulder PT-OP-T Assessment and Plan Start: 06/02/24 16:57 Freq: Status: Active Protocol: Document 06/18/24 12:56 AB (Rec: 06/18/24 13:49 AB [id number]) Physical Therapy Assessment Goals Three Impairment Pt reports right shoulder pain often 4-5/10, limiting sleep Director Of Institutional Sales Goal (LTG) Pt to reports one full week of pain not exceeding 3/10 to help improve sleep patterns LTG Duration 08/03/24 Two Impairment Significant limitations in R shoulder AROM flexion (62?)/ abduction (64?) Director Of Institutional Sales Goal (LTG) Pt to demonstrate improved shoulder AROM to 110? with both flexion and abduction bilaterally in order to improve ability to lift objects overhead into kitchen cabinets. LTG Duration 08/03/24 One Impairment Pt does not have an appropriate home exercise program Short Term Goal (STG) Pt to be independent and compliant with an appropriate HEP STG Duration 07/03/24 Assessment Summary Assessment Good maxim to isometric reactives this session, with reports of a little pain with IR and ER, end of session AROM right shoulder flexion with less crepitis noted end of session. Physical Therapy Plan Frequency and Duration Frequency of Treatment 2x/Week Plan of Care Start Date 06/02/24 Plan of Care End Date 08/03/24 Next Visit Focus/Plan Next Note Type Treatment Note Next Visit Plan PROM/stretching, gentle strengthening, improving activity tolerance
--- NOTE | 2024-06-22 11:17 | PT.OTN ---
Current Diagnoses Other specific arthropathies, not elsewhere classified, right shoulder (06/22/24) Other specific arthropathies, not elsewhere classified, left shoulder (06/22/24) Pain in right shoulder (06/22/24) Pain in left shoulder (06/22/24) Stiffness of right shoulder, not elsewhere classified (06/22/24) Stiffness of left shoulder, not elsewhere classified (06/22/24) Unspecified rotator cuff tear or rupture of right shoulder, not specified as traumatic (06/22/24) Unspecified rotator cuff tear or rupture of left shoulder, not specified as traumatic (06/22/24) Physical Therapy Treatment Note PT-OP-A Visit Information Start: 06/02/24 16:57 Freq: Status: Active Protocol: Document 06/22/24 10:30 DCW (Rec: 06/22/24 11:16 DCW [id number]) Out-Patient Physical Therapy Visit Information Visit Information Visit Type Treatment Note Visit Start Time 10:30 Visit Stop Time 11:15 Visit Number 6 Number of VEHICLE CARE SPECIALIST Visits 0 Evaluation Information Evaluation Date 06/02/24 PT-OP-B Current Condition Start: 06/02/24 16:57 Freq: Status: Active Protocol: Document 06/02/24 12:00 DCW (Rec: 06/02/24 17:34 DCW [id number]) Current Condition History of Current Condition Onset Date A few years Current Complaints R>L shoulder pain, stiffness History of Current Condition Pt is an 89 year old male presenting with a multi-year history of bilateral shoulder pain, notes right significantly worse than left. Pt notes there was no initial injury, just pain worsening over time. Has had multiple injections, but notes no real improvement. Unable to perform any overhead movements. Limited to lifting only very light weight. Personal Factors Other Personal Factors That May Effect CVA history, Alzheimer's Therapy/Recovery PT-OP-C Subjective Start: 06/02/24 16:57 Freq: Status: Active Protocol: Document 06/22/24 10:30 DCW (Rec: 06/22/24 11:16 DCW [id number]) OP-PT Subjective Patient Comments Patient Comments Pt's son notes pt has said that maybe it might be feeling a little better. PT-OP-F Manual Assessment Start: 06/02/24 16:57 Freq: Status: Active Protocol: Document 06/02/24 12:00 DCW (Rec: 06/02/24 17:34 DCW [id number]) Manual Assessments Joint Mobility Assessment Joint Mobility Assessment Significant grinding, popping, and catching with passive R GH movement PT-OP-K Range of Motion Start: 06/02/24 16:57 Freq: Status: Active Protocol: Document 06/02/24 12:00 DCW (Rec: 06/02/24 17:34 GAW [id number]) Shoulder Goniometric Range of Motion Shoulder Right Passive Testing Position Supine Flexion 90 Abduction 85 External Rotation at 0 degrees Abduction 13 Right Active Testing Position Sitting Flexion 62 Abduction 64 External Rotation at 0 degrees Abduction 0 Internal Rotation Behind Back (text) T11 Left Passive Testing Position Supine Flexion 146 Abduction 90 External Rotation at 0 degrees Abduction 30 Left Active Testing Position Sitting Flexion 96 Abduction 79 External Rotation at 0 degrees Abduction 0 Internal Rotation Behind Back (text) T11 PT-OP-L Special Tests Start: 06/02/24 16:57 Freq: Status: Active Protocol: Document 06/02/24 12:00 DCW (Rec: 06/02/24 17:34 DCW [id number]) Special Tests Shoulder Special Tests Passive ER Rotator Cuff Test Results Positive R Lift-Off Rotator Cuff Test Results Negative Mercer Alonso Impingement Test Results Positive R Grind Labrum Test Results Positive R Empty Can Test Results Negative Clunk Test Test Results Positive R Belly Press Test Results Negative Apprehension Test Test Results Unable to position AC Joint Compression Test Results Negative PT-OP-M Strength Start: 06/02/24 16:57 Freq: Status: Active Protocol: Document 06/02/24 12:00 DCW (Rec: 06/02/24 17:34 DCW [id number]) Shoulder Strength Shoulder Manual Muscle Testing Right Flexion 2 Poor Abduction (C5) 2 Poor External Rotation 2 Poor Internal Rotation 2 Poor Left Flexion 2+ Poor+ Abduction (C5) 2+ Poor+ External Rotation 2+ Poor+ Internal Rotation 2+ Poor+ PT-OP-Q Treatments Start: 06/02/24 16:57 Freq: Status: Active Protocol: Document 06/22/24 10:30 DCW (Rec: 06/22/24 11:16 DCW [id number]) Therapeutic Exercises Sitting Exercises Extension Sitting Exercise Name Shoulder Extension Side bilateral Resistance Lv 1 Flexion Sitting Exercise Name Shoulder Flexion Side bilateral Resistance 1# Abduction Sitting Exercise Name Shoulder Abduction Side bilateral Resistance 1# Curls Sitting Exercise Name Reverse Curls Side bilateral Resistance 2# PROM Sitting Exercise Name Pulleys - Flexion, Abduction Side bilateral Reps/Minutes 2+ min flex 1+ min abd Rows Sitting Exercise Name Rows Side bilateral Resistance level 1 band Reps/Minutes X10 Comments verbal cues Manual Therapy Treatment Soft Tissue Mobilization bilateral shoulders Body Location right shoulder Mobilization Type Cross-Friction,Rolling Intensity/Depth Superficial Body Position Hooklying Joint Mobilizations scapular mobilization Joint bilateral scapula Direction into depression and adduction Grade III Body Position Hooklying Reps/Duration X10 each direction each shoulder PT-OP-T Assessment and Plan Start: 06/02/24 16:57 Freq: Status: Active Protocol: Document 06/22/24 10:30 DCW (Rec: 06/22/24 11:16 DCW [id number]) Physical Therapy Assessment Impairments Impairments Activity Tolerance,Functional Activities,Functional Mobility ,Pain,ROM,Soft Tissue Mobility ,Strength,Tone Goals Three Impairment Pt reports right shoulder pain often 4-5/10, limiting sleep Mcc Goal (LTG) Pt to reports one full week of pain not exceeding 3/10 to help improve sleep patterns LTG Duration 08/03/24 Two Impairment Significant limitations in R shoulder AROM flexion (62?)/ abduction (64?) Webmethods Architect Goal (LTG) Pt to demonstrate improved shoulder AROM to 110? with both flexion and abduction bilaterally in order to improve ability to lift objects overhead into kitchen cabinets. LTG Duration 08/03/24 One Impairment Pt does not have an appropriate home exercise program Short Term Goal (STG) Pt to be independent and compliant with an appropriate HEP STG Duration 07/03/24 Assessment Summary Assessment Pt continues to admit to [id number] compliance with HEP, son calls to help take him through it, but notes he is not able to do it every day. Pt showing some mild progress overall with PROM, attempting to increase strength based on pt tolerance . Physical Therapy Plan Frequency and Duration Frequency of Treatment 2x/Week Plan of Care Start Date 06/02/24 Plan of Care End Date 08/03/24 Therapeutic Interventions Therapeutic Interventions Home Exercise Program,Joint Mobilizations,Manual Therapy, Neuromuscular Re-education, Patient/Caregiver Education, Self-Care/Home Management,Soft Tissue Mobilization, Therapeutic Activities, Therapeutic Exercises Modalities Cold Pack/Ice Massage,Hot Packs Next Visit Focus/Plan Next Note Type Treatment Note Next Visit Plan PROM/stretching, gentle strengthening, improving activity tolerance
--- NOTE | 2024-07-08 16:21 | PT.OTN ---
Current Diagnoses Other specific arthropathies, not elsewhere classified, right shoulder (07/08/24) Other specific arthropathies, not elsewhere classified, left shoulder (07/08/24) Pain in right shoulder (07/08/24) Pain in left shoulder (07/08/24) Stiffness of right shoulder, not elsewhere classified (07/08/24) Stiffness of left shoulder, not elsewhere classified (07/08/24) Unspecified rotator cuff tear or rupture of right shoulder, not specified as traumatic (07/08/24) Unspecified rotator cuff tear or rupture of left shoulder, not specified as traumatic (07/08/24) Physical Therapy Treatment Note PT-OP-A Visit Information Start: 06/02/24 16:57 Freq: Status: Active Protocol: Document 07/08/24 12:49 AB (Rec: 07/08/24 16:20 AB [id number]) Out-Patient Physical Therapy Visit Information Visit Information Visit Type Treatment Note Visit Note Access Code [email or web address] Visit Start Time 13:49 Visit Stop Time 14:32 Visit Number 7 Number of LIME KILN OPERATOR Visits 1 Evaluation Information Evaluation Date 06/02/24 PT-OP-B Current Condition Start: 06/02/24 16:57 Freq: Status: Active Protocol: Document 06/02/24 12:00 DCW (Rec: 06/02/24 17:34 DCW [id number]) Current Condition History of Current Condition Onset Date A few years Current Complaints R>L shoulder pain, stiffness History of Current Condition Pt is an 89 year old male presenting with a multi-year history of bilateral shoulder pain, notes right significantly worse than left. Pt notes there was no initial injury, just pain worsening over time. Has had multiple injections, but notes no real improvement. Unable to perform any overhead movements. Limited to lifting only very light weight. Personal Factors Other Personal Factors That May Effect CVA history, Alzheimer's Therapy/Recovery PT-OP-C Subjective Start: 06/02/24 16:57 Freq: Status: Active Protocol: Document 07/08/24 12:49 AB (Rec: 07/08/24 16:20 AB [id number]) OP-PT Subjective Patient Comments Patient Comments Son reports patient can reach opposite shoulder with hand now, previously this was very painful. 95 deg right 105 deg lft PT-OP-F Manual Assessment Start: 06/02/24 16:57 Freq: Status: Active Protocol: Document 06/02/24 12:00 DCW (Rec: 06/02/24 17:34 DCW [id number]) Manual Assessments Joint Mobility Assessment Joint Mobility Assessment Significant grinding, popping, and catching with passive R GH movement PT-OP-K Range of Motion Start: 06/02/24 16:57 Freq: Status: Active Protocol: Document 06/02/24 12:00 DCW (Rec: 06/02/24 17:34 DCW [id number]) Shoulder Goniometric Range of Motion Shoulder Right Passive Testing Position Supine Flexion 90 Abduction 85 External Rotation at 0 degrees Abduction 13 Right Active Testing Position Sitting Flexion 62 Abduction 64 External Rotation at 0 degrees Abduction 0 Internal Rotation Behind Back (text) T11 Left Passive Testing Position Supine Flexion 146 Abduction 90 External Rotation at 0 degrees Abduction 30 Left Active Testing Position Sitting Flexion 96 Abduction 79 External Rotation at 0 degrees Abduction 0 Internal Rotation Behind Back (text) T11 PT-OP-L Special Tests Start: 06/02/24 16:57 Freq: Status: Active Protocol: Document 06/02/24 12:00 DCW (Rec: 06/02/24 17:34 DCW [id number]) Special Tests Shoulder Special Tests Passive ER Rotator Cuff Test Results Positive R Lift-Off Rotator Cuff Test Results Negative Mercer Alonso Impingement Test Results Positive R Grind Labrum Test Results Positive R Empty Can Test Results Negative Clunk Test Test Results Positive R Belly Press Test Results Negative Apprehension Test Test Results Unable to position AC Joint Compression Test Results Negative PT-OP-M Strength Start: 06/02/24 16:57 Freq: Status: Active Protocol: Document 06/02/24 12:00 DCW (Rec: 06/02/24 17:34 DCW [id number]) Shoulder Strength Shoulder Manual Muscle Testing Right Flexion 2 Poor Abduction (C5) 2 Poor External Rotation 2 Poor Internal Rotation 2 Poor Left Flexion 2+ Poor+ Abduction (C5) 2+ Poor+ External Rotation 2+ Poor+ Internal Rotation 2+ Poor+ PT-OP-Q Treatments Start: 06/02/24 16:57 Freq: Status: Active Protocol: Document 07/08/24 12:49 AB (Rec: 07/08/24 16:20 AB [id number]) Therapeutic Exercises Supine Exercises isometric reactives Supine Exercise Name shoulder ER and IR Side bilateral Resistance level one band Reps/Minutes X10 each each UE Comments Verbal cues to hold UE in place CGA through out Sitting Exercises PROM Sitting Exercise Name Pulleys - Flexion, Abduction Side bilateral Reps/Minutes flex>abd Rows Sitting Exercise Name Rows Side bilateral Resistance level 1 band Reps/Minutes X10 Comments verbal cues Manual Therapy Treatment Consent Patient gave verbal consent for manual Yes treatment Soft Tissue Mobilization bilateral shoulders Body Location bilateralshoulder ant and post Mobilization Type Cross-Friction,Rolling Intensity/Depth Superficial Body Position Hooklying Joint Mobilizations scapular mobilization Joint bilateral scapula Direction into depression and adduction Grade III Body Position Hooklying Reps/Duration X10 each direction each shoulder Manual Techniques isometric scapular Type add and depression Body Position Hooklying Reps/Duration X10 each direction each UE manual resistance PROM Type contract relax contract into ER right shoulder Body Position Hooklying Reps/Duration X4 PT-OP-T Assessment and Plan Start: 06/02/24 16:57 Freq: Status: Active Protocol: Document 07/08/24 12:49 AB (Rec: 07/08/24 16:20 AB [id number]) Physical Therapy Assessment Goals Three Impairment Pt reports right shoulder pain often 4-5/10, limiting sleep Care Home Goal (LTG) Pt to reports one full week of pain not exceeding 3/10 to help improve sleep patterns LTG Duration 08/03/24 Two Impairment Significant limitations in R shoulder AROM flexion (62?)/ abduction (64?) Care Home Goal (LTG) Pt to demonstrate improved shoulder AROM to 110? with both flexion and abduction bilaterally in order to improve ability to lift objects overhead into kitchen cabinets. LTG Duration 08/03/24 One Impairment Pt does not have an appropriate home exercise program Short Term Goal (STG) Pt to be independent and compliant with an appropriate HEP STG Duration 07/03/24 Assessment Summary Assessment Decreased maxim to abduction with pulleys, but good return demonstration and tolerance to flexion. Son comments end of session that patient is no longer grimacing when fastening seat belt. Physical Therapy Plan Frequency and Duration Frequency of Treatment 2x/Week Plan of Care Start Date 06/02/24 Plan of Care End Date 08/03/24 Next Visit Focus/Plan Next Note Type Treatment Note Next Visit Plan PROM/stretching, gentle strengthening, improving activity tolerance
--- NOTE | 2024-07-16 13:50 | PT.OTN ---
Current Diagnoses Other specific arthropathies, not elsewhere classified, right shoulder (07/16/24) Other specific arthropathies, not elsewhere classified, left shoulder (07/16/24) Pain in right shoulder (07/16/24) Pain in left shoulder (07/16/24) Stiffness of right shoulder, not elsewhere classified (07/16/24) Stiffness of left shoulder, not elsewhere classified (07/16/24) Unspecified rotator cuff tear or rupture of right shoulder, not specified as traumatic (07/16/24) Unspecified rotator cuff tear or rupture of left shoulder, not specified as traumatic (07/16/24) Physical Therapy Treatment Note PT-OP-A Visit Information Start: 06/02/24 16:57 Freq: Status: Active Protocol: Document 07/16/24 12:53 AB (Rec: 07/16/24 13:50 AB [id number]) Out-Patient Physical Therapy Visit Information Visit Information Visit Type Treatment Note Visit Note Access Code [email or web address] Visit Start Time 13:02 Visit Stop Time 13:46 Visit Number 8 Number of CALENDERER Visits 1 Evaluation Information Evaluation Date 06/02/24 PT-OP-B Current Condition Start: 06/02/24 16:57 Freq: Status: Active Protocol: Document 06/02/24 12:00 DCW (Rec: 06/02/24 17:34 DCW [id number]) Current Condition History of Current Condition Onset Date A few years Current Complaints R>L shoulder pain, stiffness History of Current Condition Pt is an 89 year old male presenting with a multi-year history of bilateral shoulder pain, notes right significantly worse than left. Pt notes there was no initial injury, just pain worsening over time. Has had multiple injections, but notes no real improvement. Unable to perform any overhead movements. Limited to lifting only very light weight. Personal Factors Other Personal Factors That May Effect CVA history, Alzheimer's Therapy/Recovery PT-OP-C Subjective Start: 06/02/24 16:57 Freq: Status: Active Protocol: Document 07/16/24 12:53 AB (Rec: 07/16/24 13:50 AB [id number]) OP-PT Subjective Patient Comments Patient Comments Patient/son reports the shoulder is the same compared to last session, but overall better since starting therapy. Patient rates right shoulder pain .04/09 start of session PT-OP-F Manual Assessment Start: 06/02/24 16:57 Freq: Status: Active Protocol: Document 06/02/24 12:00 DCW (Rec: 06/02/24 17:34 DCW [id number]) Manual Assessments Joint Mobility Assessment Joint Mobility Assessment Significant grinding, popping, and catching with passive R GH movement PT-OP-K Range of Motion Start: 06/02/24 16:57 Freq: Status: Active Protocol: Document 06/02/24 12:00 DCW (Rec: 06/02/24 17:34 DCW [id number]) Shoulder Goniometric Range of Motion Shoulder Right Passive Testing Position Supine Flexion 90 Abduction 85 External Rotation at 0 degrees Abduction 13 Right Active Testing Position Sitting Flexion 62 Abduction 64 External Rotation at 0 degrees Abduction 0 Internal Rotation Behind Back (text) T11 Left Passive Testing Position Supine Flexion 146 Abduction 90 External Rotation at 0 degrees Abduction 30 Left Active Testing Position Sitting Flexion 96 Abduction 79 External Rotation at 0 degrees Abduction 0 Internal Rotation Behind Back (text) T11 PT-OP-L Special Tests Start: 06/02/24 16:57 Freq: Status: Active Protocol: Document 06/02/24 12:00 DCW (Rec: 06/02/24 17:34 DCW [id number]) Special Tests Shoulder Special Tests Passive ER Rotator Cuff Test Results Positive R Lift-Off Rotator Cuff Test Results Negative Mercer Alonso Impingement Test Results Positive R Grind Labrum Test Results Positive R Empty Can Test Results Negative Clunk Test Test Results Positive R Belly Press Test Results Negative Apprehension Test Test Results Unable to position AC Joint Compression Test Results Negative PT-OP-M Strength Start: 06/02/24 16:57 Freq: Status: Active Protocol: Document 06/02/24 12:00 DCW (Rec: 06/02/24 17:34 DCW [id number]) Shoulder Strength Shoulder Manual Muscle Testing Right Flexion 2 Poor Abduction (C5) 2 Poor External Rotation 2 Poor Internal Rotation 2 Poor Left Flexion 2+ Poor+ Abduction (C5) 2+ Poor+ External Rotation 2+ Poor+ Internal Rotation 2+ Poor+ PT-OP-Q Treatments Start: 06/02/24 16:57 Freq: Status: Active Protocol: Document 07/16/24 12:53 AB (Rec: 07/16/24 13:50 AB [id number]) Therapeutic Exercises Supine Exercises Flexion Supine Exercise Name AROM Side bilateral Reps/Minutes X8 Comments hands clasped Sitting Exercises chair push up Reps/Minutes X6 side sit to upright Reps/Minutes X8 X2 Comments limited by popping sensation thoracic spine, significantly less post manual Flexion Sitting Exercise Name Shoulder Flexion Side bilateral Resistance 1# Reps/Minutes X10 PROM Sitting Exercise Name Pulleys - Flexion, Abduction Side bilateral Reps/Minutes flex>abd Manual Therapy Treatment Soft Tissue Mobilization bilateral shoulders Body Location bilateralshoulder ant and post Mobilization Type Cross-Friction,Rolling Intensity/Depth Superficial Body Position Hooklying Joint Mobilizations scapular mobilization Joint bilateral scapula Direction into depression and adduction Grade III Body Position Hooklying Reps/Duration X10 each direction each shoulder Manual Techniques PROM Type contract relax contract into ER right shoulder Body Position Hooklying Reps/Duration X2 PT-OP-T Assessment and Plan Start: 06/02/24 16:57 Freq: Status: Active Protocol: Document 07/16/24 12:53 AB (Rec: 07/16/24 13:50 AB [id number]) Physical Therapy Assessment Goals Three Impairment Pt reports right shoulder pain often 4-5/10, limiting sleep Mergers And Acquisitions Manager Goal (LTG) Pt to reports one full week of pain not exceeding 3/10 to help improve sleep patterns LTG Duration 08/03/24 Two Impairment Significant limitations in R shoulder AROM flexion (62?)/ abduction (64?) Prison Goal (LTG) Pt to demonstrate improved shoulder AROM to 110? with both flexion and abduction bilaterally in order to improve ability to lift objects overhead into kitchen cabinets. LTG Duration 08/03/24 One Impairment Pt does not have an appropriate home exercise program Short Term Goal (STG) Pt to be independent and compliant with an appropriate HEP STG Duration 07/03/24 Assessment Summary Assessment Patient rates right shoulder pain 1/10 end of session. Good maxim to abduction with pulleys this session, but continues to maxim more flexion than abduction. Physical Therapy Plan Frequency and Duration Frequency of Treatment 2x/Week Plan of Care Start Date 06/02/24 Plan of Care End Date 08/03/24 Next Visit Focus/Plan Next Note Type Treatment Note Next Visit Plan PROM/stretching, gentle strengthening, improving activity tolerance
--- NOTE | 2024-07-24 12:47 | PT.OTN ---
Current Diagnoses Other specific arthropathies, not elsewhere classified, right shoulder (07/24/24) Other specific arthropathies, not elsewhere classified, left shoulder (07/24/24) Pain in right shoulder (07/24/24) Pain in left shoulder (07/24/24) Stiffness of right shoulder, not elsewhere classified (07/24/24) Stiffness of left shoulder, not elsewhere classified (07/24/24) Unspecified rotator cuff tear or rupture of right shoulder, not specified as traumatic (07/24/24) Unspecified rotator cuff tear or rupture of left shoulder, not specified as traumatic (07/24/24) Physical Therapy Treatment Note PT-OP-A Visit Information Start: 06/02/24 16:57 Freq: Status: Active Protocol: Document 07/24/24 12:02 DCW (Rec: 07/24/24 12:46 DCW [id number]) Out-Patient Physical Therapy Visit Information Visit Information Visit Type Treatment Note Visit Start Time 12:02 Visit Stop Time 12:45 Visit Number 9 Number of CARD SETTER Visits 0 Evaluation Information Evaluation Date 06/02/24 PT-OP-B Current Condition Start: 06/02/24 16:57 Freq: Status: Active Protocol: Document 06/02/24 12:00 DCW (Rec: 06/02/24 17:34 DCW [id number]) Current Condition History of Current Condition Onset Date A few years Current Complaints R>L shoulder pain, stiffness History of Current Condition Pt is an 89 year old male presenting with a multi-year history of bilateral shoulder pain, notes right significantly worse than left. Pt notes there was no initial injury, just pain worsening over time. Has had multiple injections, but notes no real improvement. Unable to perform any overhead movements. Limited to lifting only very light weight. Personal Factors Other Personal Factors That May Effect CVA history, Alzheimer's Therapy/Recovery PT-OP-C Subjective Start: 06/02/24 16:57 Freq: Status: Active Protocol: Document 07/24/24 12:02 DCW (Rec: 07/24/24 12:46 DCW [id number]) OP-PT Subjective Patient Comments Patient Comments L shoulder feeling pretty good , R seems to be improving. Son reports not noticing pt complain about his shoulders as much. PT-OP-F Manual Assessment Start: 06/02/24 16:57 Freq: Status: Active Protocol: Document 06/02/24 12:00 DCW (Rec: 06/02/24 17:34 DCW [id number]) Manual Assessments Joint Mobility Assessment Joint Mobility Assessment Significant grinding, popping, and catching with passive R GH movement PT-OP-K Range of Motion Start: 06/02/24 16:57 Freq: Status: Active Protocol: Document 07/24/24 12:02 DCW (Rec: 07/24/24 12:47 DCW [id number]) Shoulder Goniometric Range of Motion Shoulder Right Active Testing Position Sitting Flexion 93 Abduction 65 External Rotation at 0 degrees Abduction 21 Internal Rotation Behind Back (text) T10 Left Active Testing Position Sitting Flexion 126 Abduction 180 External Rotation at 0 degrees Abduction 30 Internal Rotation Behind Back (text) T8 PT-OP-L Special Tests Start: 06/02/24 16:57 Freq: Status: Active Protocol: Document 06/02/24 12:00 DCW (Rec: 06/02/24 17:34 DCW [id number]) Special Tests Shoulder Special Tests Passive ER Rotator Cuff Test Results Positive R Lift-Off Rotator Cuff Test Results Negative Mercer Alonso Impingement Test Results Positive R Grind Labrum Test Results Positive R Empty Can Test Results Negative Clunk Test Test Results Positive R Belly Press Test Results Negative Apprehension Test Test Results Unable to position AC Joint Compression Test Results Negative PT-OP-M Strength Start: 06/02/24 16:57 Freq: Status: Active Protocol: Document 06/02/24 12:00 DCW (Rec: 06/02/24 17:34 DCW [id number]) Shoulder Strength Shoulder Manual Muscle Testing Right Flexion 2 Poor Abduction (C5) 2 Poor External Rotation 2 Poor Internal Rotation 2 Poor Left Flexion 2+ Poor+ Abduction (C5) 2+ Poor+ External Rotation 2+ Poor+ Internal Rotation 2+ Poor+ PT-OP-Q Treatments Start: 06/02/24 16:57 Freq: Status: Active Protocol: Document 07/24/24 12:02 DCW (Rec: 07/24/24 12:46 DCW [id number]) Therapeutic Exercises Sitting Exercises Adduction Sitting Exercise Name Shoulder Adduction - Seated Side bilateral Resistance Green Overhead Press Sitting Exercise Name Overhead press /c PVC Side bilateral PROM Sitting Exercise Name Pulleys - Flexion, Abduction Side bilateral Reps/Minutes flex>abd Standing Exercises Extension Standing Exercise Name Shoulder Extension Side bilateral Resistance Green Wall Slides Standing Exercise Name Wall slides Side bilateral Manual Therapy Treatment Soft Tissue Mobilization bilateral shoulders Body Location bilateral shoulder ant and post Mobilization Type Cross-Friction,Rolling Intensity/Depth Superficial Body Position Sitting PT-OP-T Assessment and Plan Start: 06/02/24 16:57 Freq: Status: Active Protocol: Document 07/24/24 12:02 DCW (Rec: 07/24/24 12:46 DCW [id number]) Physical Therapy Assessment Impairments Impairments Activity Tolerance,Functional Activities,Functional Mobility ,Pain,ROM,Soft Tissue Mobility ,Strength,Tone Goals Three Impairment Pt reports right shoulder pain often 4-5/10, limiting sleep Senior Living Goal (LTG) Pt to reports one full week of pain not exceeding 3/10 to help improve sleep patterns LTG Duration 08/03/24 Two Impairment Significant limitations in R shoulder AROM flexion (62?)/ abduction (64?) Senior Living Goal (LTG) Pt to demonstrate improved shoulder AROM to 110? with both flexion and abduction bilaterally in order to improve ability to lift objects overhead into kitchen cabinets. LTG Duration 08/03/24 One Impairment Pt does not have an appropriate home exercise program Short Term Goal (STG) Pt to be independent and compliant with an appropriate HEP STG Duration 07/03/24 Assessment Summary Assessment Pt progressing very well, showing significant improvement in shoulder ROM, particularly in left. Pt will likely benefit from continued skilled therapeutic intervention focusing on continued ROM, strengthening, and tone management. Physical Therapy Plan Frequency and Duration Frequency of Treatment 1-2x/Week Plan of Care Start Date 07/24/24 Plan of Care End Date 09/23/24 Next Visit Focus/Plan Next Note Type Treatment Note Next Visit Plan PROM/stretching, gentle strengthening, improving activity tolerance
--- NOTE | 2024-07-24 12:49 | PT.OPPOC ---
Physical, Occupational & Speech Therapy At [facility] Current Diagnoses Other specific arthropathies, not elsewhere classified, right shoulder (07/24/24) Other specific arthropathies, not elsewhere classified, left shoulder (07/24/24) Pain in right shoulder (07/24/24) Pain in left shoulder (07/24/24) Stiffness of right shoulder, not elsewhere classified (07/24/24) Stiffness of left shoulder, not elsewhere classified (07/24/24) Unspecified rotator cuff tear or rupture of right shoulder, not specified as traumatic (07/24/24) Unspecified rotator cuff tear or rupture of left shoulder, not specified as traumatic (07/24/24) Visit Care Team Role Provider Type Kimberly Coello DO Primary Care Provider Physician Specialty: Family Practice Address: [address] [place] [address], [address], [address] Email: [email or web address] Travis Lopez MD Family Provider Non-Staff Specialty: Internal Medicine Address: [address] [place] [address], [address], [id number] Email: Pantera Montes DO Attending Provider Physician Referring Provider Specialty: Interventional Radiology Physiatry Pain Management Address: [facility] [place], [address] Email: [email or web address] Plan Of Care PT-OP-B Current Condition Start: 06/02/24 16:57 Freq: Status: Active Protocol: Document 06/02/24 12:00 DCW (Rec: 06/02/24 17:34 DCW [id number]) Current Condition History of Current Condition Onset Date A few years Current Complaints R>L shoulder pain, stiffness History of Current Condition Pt is an 89 year old male presenting with a multi-year history of bilateral shoulder pain, notes right significantly worse than left. Pt notes there was no initial injury, just pain worsening over time. Has had multiple injections, but notes no real improvement. Unable to perform any overhead movements. Limited to lifting only very light weight. Personal Factors Other Personal Factors That May Effect CVA history, Alzheimer's Therapy/Recovery PT-OP-T Assessment and Plan Start: 06/02/24 16:57 Freq: Status: Active Protocol: Document 07/24/24 12:02 DCW (Rec: 07/24/24 12:46 DCW [id number]) Physical Therapy Assessment Impairments Impairments Activity Tolerance,Functional Activities,Functional Mobility ,Pain,ROM,Soft Tissue Mobility ,Strength,Tone Goals Three Impairment Pt reports right shoulder pain often 4-5/10, limiting sleep Suspension Cord Tier Goal (LTG) Pt to reports one full week of pain not exceeding 3/10 to help improve sleep patterns LTG Duration 08/03/24 Two Impairment Significant limitations in R shoulder AROM flexion (62?)/ abduction (64?) Custodial Goal (LTG) Pt to demonstrate improved shoulder AROM to 110? with both flexion and abduction bilaterally in order to improve ability to lift objects overhead into kitchen cabinets. LTG Duration 08/03/24 One Impairment Pt does not have an appropriate home exercise program Short Term Goal (STG) Pt to be independent and compliant with an appropriate HEP STG Duration 07/03/24 Assessment Summary Assessment Pt progressing very well, showing significant improvement in shoulder ROM, particularly in left. Flexion increased 30? bilaterally, left abduction improved from 79? to full 180?. External rotation also improved more than 20? bilaterally. Pt will likely benefit from continued skilled therapeutic intervention focusing on continued ROM, strengthening, and tone management. Physical Therapy Plan Frequency and Duration Frequency of Treatment 1-2x/Week Plan of Care Start Date 07/24/24 Plan of Care End Date 09/23/24 Next Visit Focus/Plan Next Note Type Treatment Note Next Visit Plan PROM/stretching, gentle strengthening, improving activity tolerance Plan of Care Dates Plan of Care Start Date 07/24/24 Plan of Care End Date 09/23/24 Electronically Signed by: Tripp Hatch, PT 07/24/24 [id number] If you are in agreement with this Plan of Care, please return a signed and dated copy. I have reviewed this Plan of Care and certify that the skilled therapy services above are required to meet the patient?s needs. Physician Signature Date Printed Name and Credentials Clinical Instructor Signature Printed Name and Credentials
--- NOTE | 2024-08-03 12:47 | PT.OTN ---
Current Diagnoses Other specific arthropathies, not elsewhere classified, right shoulder (08/03/24) Other specific arthropathies, not elsewhere classified, left shoulder (08/03/24) Pain in right shoulder (08/03/24) Pain in left shoulder (08/03/24) Stiffness of right shoulder, not elsewhere classified (08/03/24) Stiffness of left shoulder, not elsewhere classified (08/03/24) Unspecified rotator cuff tear or rupture of right shoulder, not specified as traumatic (08/03/24) Unspecified rotator cuff tear or rupture of left shoulder, not specified as traumatic (08/03/24) Physical Therapy Treatment Note PT-OP-A Visit Information Start: 06/02/24 16:57 Freq: Status: Active Protocol: Document 08/03/24 12:00 DCW (Rec: 08/03/24 12:46 DCW [id number]) Out-Patient Physical Therapy Visit Information Visit Information Visit Type Treatment Note Visit Start Time 12:00 Visit Stop Time 12:45 Visit Number 10 Number of COUNTERINTELLIGENCE/HUMINT SPECIALIST Visits 0 Evaluation Information Evaluation Date 06/02/24 PT-OP-B Current Condition Start: 06/02/24 16:57 Freq: Status: Active Protocol: Document 06/02/24 12:00 DCW (Rec: 06/02/24 17:34 DCW [id number]) Current Condition History of Current Condition Onset Date A few years Current Complaints R>L shoulder pain, stiffness History of Current Condition Pt is an 89 year old male presenting with a multi-year history of bilateral shoulder pain, notes right significantly worse than left. Pt notes there was no initial injury, just pain worsening over time. Has had multiple injections, but notes no real improvement. Unable to perform any overhead movements. Limited to lifting only very light weight. Personal Factors Other Personal Factors That May Effect CVA history, Alzheimer's Therapy/Recovery PT-OP-C Subjective Start: 06/02/24 16:57 Freq: Status: Active Protocol: Document 08/03/24 12:00 DCW (Rec: 08/03/24 12:46 DCW [id number]) OP-PT Subjective Patient Comments Patient Comments Left's alright, right is still a problem. PT-OP-F Manual Assessment Start: 06/02/24 16:57 Freq: Status: Active Protocol: Document 06/02/24 12:00 DCW (Rec: 06/02/24 17:34 DCW [id number]) Manual Assessments Joint Mobility Assessment Joint Mobility Assessment Significant grinding, popping, and catching with passive R GH movement PT-OP-K Range of Motion Start: 06/02/24 16:57 Freq: Status: Active Protocol: Document 07/24/24 12:02 DCW (Rec: 07/24/24 12:47 DCW [id number]) Shoulder Goniometric Range of Motion Shoulder Right Active Testing Position Sitting Flexion 93 Abduction 65 External Rotation at 0 degrees Abduction 21 Internal Rotation Behind Back (text) T10 Left Active Testing Position Sitting Flexion 126 Abduction 180 External Rotation at 0 degrees Abduction 30 Internal Rotation Behind Back (text) T8 PT-OP-L Special Tests Start: 06/02/24 16:57 Freq: Status: Active Protocol: Document 06/02/24 12:00 DCW (Rec: 06/02/24 17:34 DCW [id number]) Special Tests Shoulder Special Tests Passive ER Rotator Cuff Test Results Positive R Lift-Off Rotator Cuff Test Results Negative Mercer Alonso Impingement Test Results Positive R Grind Labrum Test Results Positive R Empty Can Test Results Negative Clunk Test Test Results Positive R Belly Press Test Results Negative Apprehension Test Test Results Unable to position AC Joint Compression Test Results Negative PT-OP-M Strength Start: 06/02/24 16:57 Freq: Status: Active Protocol: Document 06/02/24 12:00 DCW (Rec: 06/02/24 17:34 DCW [id number]) Shoulder Strength Shoulder Manual Muscle Testing Right Flexion 2 Poor Abduction (C5) 2 Poor External Rotation 2 Poor Internal Rotation 2 Poor Left Flexion 2+ Poor+ Abduction (C5) 2+ Poor+ External Rotation 2+ Poor+ Internal Rotation 2+ Poor+ PT-OP-Q Treatments Start: 06/02/24 16:57 Freq: Status: Active Protocol: Document 08/03/24 12:00 DCW (Rec: 08/03/24 12:46 DCW [id number]) Cardio Equipment Upper Body Ergometer (UBE) Duration (Minutes) 2 RPM 17 Seat Position 11 Height 2.5 Other stopped due to pain Therapeutic Exercises Sitting Exercises Overhead Press Sitting Exercise Name Overhead press /c PVC Side bilateral Flexion Sitting Exercise Name Shoulder Flexion Side bilateral Resistance 2# Reps/Minutes X10 Abduction Sitting Exercise Name Shoulder Abduction Side bilateral Resistance 0# PROM Sitting Exercise Name Pulleys - Flexion, Abduction Side bilateral Standing Exercises Adduction Standing Exercise Name Shoulder Adduction Side right Resistance [place] Extension Standing Exercise Name Shoulder Extension Side bilateral Resistance Bronson Manual Therapy Treatment Soft Tissue Mobilization bilateral shoulders Body Location bilateralshoulder ant and post Mobilization Type Cross-Friction,Rolling Intensity/Depth Superficial Body Position Sitting Joint Mobilizations scapular mobilization Joint bilateral scapula Direction into depression and adduction Grade III Body Position Sitting Reps/Duration X10 each direction each shoulder PT-OP-T Assessment and Plan Start: 06/02/24 16:57 Freq: Status: Active Protocol: Document 08/03/24 12:00 DCW (Rec: 08/03/24 12:46 DCW [id number]) Physical Therapy Assessment Impairments Impairments Activity Tolerance,Functional Activities,Functional Mobility ,Pain,ROM,Soft Tissue Mobility ,Strength,Tone Goals Three Impairment Pt reports right shoulder pain often 4-5/10, limiting sleep Painter Plate Goal (LTG) Pt to reports one full week of pain not exceeding 3/10 to help improve sleep patterns LTG Duration 08/03/24 Two Impairment Significant limitations in R shoulder AROM flexion (62?)/ abduction (64?) Painter Plate Goal (LTG) Pt to demonstrate improved shoulder AROM to 110? with both flexion and abduction bilaterally in order to improve ability to lift objects overhead into kitchen cabinets. LTG Duration 08/03/24 One Impairment Pt does not have an appropriate home exercise program Short Term Goal (STG) Pt to be independent and compliant with an appropriate HEP STG Duration 07/03/24 Assessment Summary Assessment Pt struggled more today with activity, much more sore and fatigued today following an illness last week, struggled with all exercises, self- limited reps on most activities. Spent increased time on STM to help decrease tone and pain. Physical Therapy Plan Frequency and Duration Frequency of Treatment 1-2x/Week Plan of Care Start Date 07/24/24 Plan of Care End Date 09/23/24 Next Visit Focus/Plan Next Note Type Treatment Note Next Visit Plan PROM/stretching, gentle strengthening, improving activity tolerance
--- NOTE | 2024-08-11 16:43 | PT.OTN ---
Current Diagnoses Other specific arthropathies, not elsewhere classified, right shoulder (08/11/24) Other specific arthropathies, not elsewhere classified, left shoulder (08/11/24) Pain in right shoulder (08/11/24) Pain in left shoulder (08/11/24) Stiffness of right shoulder, not elsewhere classified (08/11/24) Stiffness of left shoulder, not elsewhere classified (08/11/24) Unspecified rotator cuff tear or rupture of right shoulder, not specified as traumatic (08/11/24) Unspecified rotator cuff tear or rupture of left shoulder, not specified as traumatic (08/11/24) Physical Therapy Treatment Note PT-OP-A Visit Information Start: 06/02/24 16:57 Freq: Status: Active Protocol: Document 08/11/24 14:37 SW (Rec: 08/11/24 15:16 SW [id number]) Out-Patient Physical Therapy Visit Information Visit Information Visit Type Treatment Note Visit Start Time 14:34 Visit Stop Time 15:12 Visit Number 11 Number of SONG LYRICIST Visits 1 PT-OP-B Current Condition Start: 06/02/24 16:57 Freq: Status: Active Protocol: Document 06/02/24 12:00 DCW (Rec: 06/02/24 17:34 DCW [id number]) Current Condition History of Current Condition Onset Date A few years Current Complaints R>L shoulder pain, stiffness History of Current Condition Pt is an 89 year old male presenting with a multi-year history of bilateral shoulder pain, notes right significantly worse than left. Pt notes there was no initial injury, just pain worsening over time. Has had multiple injections, but notes no real improvement. Unable to perform any overhead movements. Limited to lifting only very light weight. Personal Factors Other Personal Factors That May Effect CVA history, Alzheimer's Therapy/Recovery PT-OP-C Subjective Start: 06/02/24 16:57 Freq: Status: Active Protocol: Document 08/11/24 14:37 SW (Rec: 08/11/24 15:16 SW [id number]) OP-PT Subjective Patient Comments Patient Comments Pt reports about the same since last session. Pt reports overall can reach across chest further. Pt's son reports noticed some increase in range, feels the manual work is helping improve range. PT-OP-F Manual Assessment Start: 06/02/24 16:57 Freq: Status: Active Protocol: Document 06/02/24 12:00 DCW (Rec: 06/02/24 17:34 DCW [id number]) Manual Assessments Joint Mobility Assessment Joint Mobility Assessment Significant grinding, popping, and catching with passive R GH movement PT-OP-K Range of Motion Start: 06/02/24 16:57 Freq: Status: Active Protocol: Document 07/24/24 12:02 DCW (Rec: 07/24/24 12:47 DCW [id number]) Shoulder Goniometric Range of Motion Shoulder Right Active Testing Position Sitting Flexion 93 Abduction 65 External Rotation at 0 degrees Abduction 21 Internal Rotation Behind Back (text) T10 Left Active Testing Position Sitting Flexion 126 Abduction 180 External Rotation at 0 degrees Abduction 30 Internal Rotation Behind Back (text) T8 PT-OP-L Special Tests Start: 06/02/24 16:57 Freq: Status: Active Protocol: Document 06/02/24 12:00 DCW (Rec: 06/02/24 17:34 DCW [id number]) Special Tests Shoulder Special Tests Passive ER Rotator Cuff Test Results Positive R Lift-Off Rotator Cuff Test Results Negative Mercer Alonso Impingement Test Results Positive R Grind Labrum Test Results Positive R Empty Can Test Results Negative Clunk Test Test Results Positive R Belly Press Test Results Negative Apprehension Test Test Results Unable to position AC Joint Compression Test Results Negative PT-OP-M Strength Start: 06/02/24 16:57 Freq: Status: Active Protocol: Document 06/02/24 12:00 DCW (Rec: 06/02/24 17:34 DCW [id number]) Shoulder Strength Shoulder Manual Muscle Testing Right Flexion 2 Poor Abduction (C5) 2 Poor External Rotation 2 Poor Internal Rotation 2 Poor Left Flexion 2+ Poor+ Abduction (C5) 2+ Poor+ External Rotation 2+ Poor+ Internal Rotation 2+ Poor+ PT-OP-Q Treatments Start: 06/02/24 16:57 Freq: Status: Active Protocol: Document 08/11/24 14:37 SW (Rec: 08/11/24 15:16 SW [id number]) Therapeutic Exercises Sitting Exercises Overhead Press Sitting Exercise Name Overhead press /c PVC Side bilateral Flexion Sitting Exercise Name Shoulder Flexion Side bilateral Resistance 2#>0# Reps/Minutes X10 Comments cues for dec shoulder elevation Abduction Sitting Exercise Name Shoulder Abduction Side bilateral Resistance 0# Comments cues for dec shoulder elevation PROM Sitting Exercise Name Pulleys - Flexion, Abduction Side bilateral Rows Sitting Exercise Name Rows Side bilateral Resistance level 2 band Reps/Minutes X10 Comments verbal cues Standing Exercises Adduction Standing Exercise Name Shoulder Adduction Side right Resistance [place] Extension Standing Exercise Name Shoulder Extension Side bilateral Resistance [place] Manual Therapy Treatment Soft Tissue Mobilization bilateral shoulders Body Location bilateralshoulder ant and post Mobilization Type Cross-Friction,Rolling Intensity/Depth Superficial Body Position Sitting Comments R>L Joint Mobilizations scapular mobilization Joint bilateral scapula Direction into depression and adduction Grade III Body Position Sitting Reps/Duration X10 each direction each shoulder Manual Techniques PROM Type Shoulder flexion/abd Comments cues for breathwork to decrease tension and relax muscles. PT-OP-T Assessment and Plan Start: 06/02/24 16:57 Freq: Status: Active Protocol: Document 08/11/24 14:37 SW (Rec: 08/11/24 15:16 [id number]) Physical Therapy Assessment Goals Three Impairment Pt reports right shoulder pain often 4-5/10, limiting sleep Electric Train Driver Goal (LTG) Pt to reports one full week of pain not exceeding 3/10 to help improve sleep patterns LTG Duration 08/03/24 Two Impairment Significant limitations in R shoulder AROM flexion (62?)/ abduction (64?) Electric Train Driver Goal (LTG) Pt to demonstrate improved shoulder AROM to 110? with both flexion and abduction bilaterally in order to improve ability to lift objects overhead into kitchen cabinets. LTG Duration 08/03/24 One Impairment Pt does not have an appropriate home exercise program Short Term Goal (STG) Pt to be independent and compliant with an appropriate HEP STG Duration 07/03/24 Assessment Summary Assessment Continued manual work today for pt discomfort and to increase patient range of motion, good tolerance. Cues throughout session for decreased upper trap recruitment during shoulder flexion, pt has tendency to compensate with shoulder shrug and thoracic extension during exercises to try to push into greater flexion. Some pain present with greater range of motion, resolved post exercise . Physical Therapy Plan Frequency and Duration Frequency of Treatment 1-2x/Week Plan of Care Start Date 07/24/24 Plan of Care End Date 09/23/24 Therapeutic Interventions Therapeutic Interventions Home Exercise Program,Joint Mobilizations,Manual Therapy, Neuromuscular Re-education, Patient/Caregiver Education, Self-Care/Home Management,Soft Tissue Mobilization, Therapeutic Activities, Therapeutic Exercises Modalities Cold Pack/Ice Massage,Hot Packs Next Visit Focus/Plan Next Note Type Treatment Note Next Visit Plan PROM/stretching, gentle strengthening, improving activity tolerance
--- NOTE | 2024-08-19 13:08 | PT.OTN ---
Current Diagnoses Other specific arthropathies, not elsewhere classified, right shoulder (08/19/24) Other specific arthropathies, not elsewhere classified, left shoulder (08/19/24) Pain in right shoulder (08/19/24) Pain in left shoulder (08/19/24) Stiffness of right shoulder, not elsewhere classified (08/19/24) Stiffness of left shoulder, not elsewhere classified (08/19/24) Unspecified rotator cuff tear or rupture of right shoulder, not specified as traumatic (08/19/24) Unspecified rotator cuff tear or rupture of left shoulder, not specified as traumatic (08/19/24) Physical Therapy Treatment Note PT-OP-A Visit Information Start: 06/02/24 16:57 Freq: Status: Active Protocol: Document 08/19/24 10:15 AB (Rec: 08/19/24 13:08 AB [id number]) Out-Patient Physical Therapy Visit Information Visit Information Visit Type Treatment Note Visit Start Time 11:33 Visit Stop Time 12:20 Visit Number 12 Number of MATERIALS ASSOCIATE Visits 1 Evaluation Information Evaluation Date 06/02/24 PT-OP-B Current Condition Start: 06/02/24 16:57 Freq: Status: Active Protocol: Document 06/02/24 12:00 DCW (Rec: 06/02/24 17:34 DCW [id number]) Current Condition History of Current Condition Onset Date A few years Current Complaints R>L shoulder pain, stiffness History of Current Condition Pt is an 89 year old male presenting with a multi-year history of bilateral shoulder pain, notes right significantly worse than left. Pt notes there was no initial injury, just pain worsening over time. Has had multiple injections, but notes no real improvement. Unable to perform any overhead movements. Limited to lifting only very light weight. Personal Factors Other Personal Factors That May Effect CVA history, Alzheimer's Therapy/Recovery PT-OP-C Subjective Start: 06/02/24 16:57 Freq: Status: Active Protocol: Document 08/19/24 10:15 AB (Rec: 08/19/24 13:08 AB [id number]) OP-PT Subjective Patient Comments Patient Comments AROM right shoulder flexion 105 deg rates pain .5/10 right shoulder start of session. PT-OP-F Manual Assessment Start: 06/02/24 16:57 Freq: Status: Active Protocol: Document 06/02/24 12:00 DCW (Rec: 06/02/24 17:34 DCW [id number]) Manual Assessments Joint Mobility Assessment Joint Mobility Assessment Significant grinding, popping, and catching with passive R GH movement PT-OP-K Range of Motion Start: 06/02/24 16:57 Freq: Status: Active Protocol: Document 07/24/24 12:02 DCW (Rec: 07/24/24 12:47 DCW [id number]) Shoulder Goniometric Range of Motion Shoulder Right Active Testing Position Sitting Flexion 93 Abduction 65 External Rotation at 0 degrees Abduction 21 Internal Rotation Behind Back (text) T10 Left Active Testing Position Sitting Flexion 126 Abduction 180 External Rotation at 0 degrees Abduction 30 Internal Rotation Behind Back (text) T8 PT-OP-L Special Tests Start: 06/02/24 16:57 Freq: Status: Active Protocol: Document 06/02/24 12:00 DCW (Rec: 06/02/24 17:34 DCW [id number]) Special Tests Shoulder Special Tests Passive ER Rotator Cuff Test Results Positive R Lift-Off Rotator Cuff Test Results Negative Mercer Alonso Impingement Test Results Positive R Grind Labrum Test Results Positive R Empty Can Test Results Negative Clunk Test Test Results Positive R Belly Press Test Results Negative Apprehension Test Test Results Unable to position AC Joint Compression Test Results Negative PT-OP-M Strength Start: 06/02/24 16:57 Freq: Status: Active Protocol: Document 06/02/24 12:00 DCW (Rec: 06/02/24 17:34 DCW [id number]) Shoulder Strength Shoulder Manual Muscle Testing Right Flexion 2 Poor Abduction (C5) 2 Poor External Rotation 2 Poor Internal Rotation 2 Poor Left Flexion 2+ Poor+ Abduction (C5) 2+ Poor+ External Rotation 2+ Poor+ Internal Rotation 2+ Poor+ PT-OP-Q Treatments Start: 06/02/24 16:57 Freq: Status: Active Protocol: Document 08/19/24 10:15 AB (Rec: 08/19/24 13:08 AB [id number]) Therapeutic Exercises Supine Exercises shoulder press Supine Exercise Name with dowel Side bilateral Reps/Minutes X10 Flexion Supine Exercise Name dowel Side bilateral Reps/Minutes 10 X Sitting Exercises side sit to upright Side bilateral Reps/Minutes X8 each side Comments verbal cues, monitored for pain maxim PROM Sitting Exercise Name Pulleys - Flexion, Abduction Side bilateral Reps/Minutes 2 min each Internal Rotation Sitting Exercise Name IR Side bilateral Resistance Lv 1 Reps/Minutes X10 each UE Comments verbal cues External Rotation Side bilateral Resistance level one band Reps/Minutes [id number] UE Manual Therapy Treatment Consent Patient gave verbal consent for manual Yes treatment Soft Tissue Mobilization bilateral shoulders Body Location bilateralshoulder ant and post Mobilization Type Cross-Friction,Rolling Intensity/Depth Superficial Body Position Sitting Comments R>L Joint Mobilizations scapular mobilization Joint bilateral scapula Direction into depression and adduction Grade III Body Position Hooklying Reps/Duration X10 each direction each shoulder Manual Techniques isometric scapular Type add and depression Body Position Hooklying Reps/Duration X10 each direction each UE manual resistance PROM Type contract relax ER Body Location right UE Body Position Hooklying Reps/Duration X2 Comments verbal cues, monitored for pain PT-OP-T Assessment and Plan Start: 06/02/24 16:57 Freq: Status: Active Protocol: Document 08/19/24 10:15 AB (Rec: 08/19/24 13:08 AB [id number]) Physical Therapy Assessment Goals Three Impairment Pt reports right shoulder pain often 4-5/10, limiting sleep Ball Points Inspector Goal (LTG) Pt to reports one full week of pain not exceeding 3/10 to help improve sleep patterns LTG Duration 08/03/24 Two Impairment Significant limitations in R shoulder AROM flexion (62?)/ abduction (64?) Ball Points Inspector Goal (LTG) Pt to demonstrate improved shoulder AROM to 110? with both flexion and abduction bilaterally in order to improve ability to lift objects overhead into kitchen cabinets. LTG Duration 08/03/24 One Impairment Pt does not have an appropriate home exercise program Short Term Goal (STG) Pt to be independent and compliant with an appropriate HEP STG Duration 07/03/24 Assessment Summary Assessment AROM 109 deg flexion right shoulder end of session, comments shoulder pain is an ache. Physical Therapy Plan Frequency and Duration Frequency of Treatment 1-2x/Week Plan of Care Start Date 07/24/24 Plan of Care End Date 09/23/24 Next Visit Focus/Plan Next Note Type Treatment Note Next Visit Plan PROM/stretching, gentle strengthening, improving activity tolerance
--- NOTE | 2024-08-26 16:52 | PT.OTN ---
Current Diagnoses Other specific arthropathies, not elsewhere classified, right shoulder (08/26/24) Other specific arthropathies, not elsewhere classified, left shoulder (08/26/24) Pain in right shoulder (08/26/24) Pain in left shoulder (08/26/24) Stiffness of right shoulder, not elsewhere classified (08/26/24) Stiffness of left shoulder, not elsewhere classified (08/26/24) Unspecified rotator cuff tear or rupture of right shoulder, not specified as traumatic (08/26/24) Unspecified rotator cuff tear or rupture of left shoulder, not specified as traumatic (08/26/24) Physical Therapy Treatment Note PT-OP-A Visit Information Start: 06/02/24 16:57 Freq: Status: Active Protocol: Document 08/26/24 10:56 AB (Rec: 08/26/24 14:15 AB [id number]) Out-Patient Physical Therapy Visit Information Visit Information Visit Type Treatment Note Visit Note Access Code [id number] Visit Start Time 13:02 Visit Stop Time 13:48 Visit Number 13 Number of CHIEF SECURITY AND SAFETY OFFICER Visits 3 Evaluation Information Evaluation Date 06/02/24 PT-OP-B Current Condition Start: 06/02/24 16:57 Freq: Status: Active Protocol: Document 06/02/24 12:00 DCW (Rec: 06/02/24 17:34 DCW [id number]) Current Condition History of Current Condition Onset Date A few years Current Complaints R>L shoulder pain, stiffness History of Current Condition Pt is an 89 year old male presenting with a multi-year history of bilateral shoulder pain, notes right significantly worse than left. Pt notes there was no initial injury, just pain worsening over time. Has had multiple injections, but notes no real improvement. Unable to perform any overhead movements. Limited to lifting only very light weight. Personal Factors Other Personal Factors That May Effect CVA history, Alzheimer's Therapy/Recovery PT-OP-C Subjective Start: 06/02/24 16:57 Freq: Status: Active Protocol: Document 08/26/24 10:56 AB (Rec: 08/26/24 14:15 AB [id number]) OP-PT Subjective Patient Comments Patient Comments Patient reports the right shoulder is the same left is good. AROM 105 deg right shoulder flexion start of session PT-OP-F Manual Assessment Start: 06/02/24 16:57 Freq: Status: Active Protocol: Document 06/02/24 12:00 DCW (Rec: 06/02/24 17:34 DCW [id number]) Manual Assessments Joint Mobility Assessment Joint Mobility Assessment Significant grinding, popping, and catching with passive R GH movement PT-OP-K Range of Motion Start: 06/02/24 16:57 Freq: Status: Active Protocol: Document 07/24/24 12:02 DCW (Rec: 07/24/24 12:47 DCW [id number]) Shoulder Goniometric Range of Motion Shoulder Right Active Testing Position Sitting Flexion 93 Abduction 65 External Rotation at 0 degrees Abduction 21 Internal Rotation Behind Back (text) T10 Left Active Testing Position Sitting Flexion 126 Abduction 180 External Rotation at 0 degrees Abduction 30 Internal Rotation Behind Back (text) T8 PT-OP-L Special Tests Start: 06/02/24 16:57 Freq: Status: Active Protocol: Document 06/02/24 12:00 DCW (Rec: 06/02/24 17:34 DCW [id number]) Special Tests Shoulder Special Tests Passive ER Rotator Cuff Test Results Positive R Lift-Off Rotator Cuff Test Results Negative Mercer Alonso Impingement Test Results Positive R Grind Labrum Test Results Positive R Empty Can Test Results Negative Clunk Test Test Results Positive R Belly Press Test Results Negative Apprehension Test Test Results Unable to position AC Joint Compression Test Results Negative PT-OP-M Strength Start: 06/02/24 16:57 Freq: Status: Active Protocol: Document 06/02/24 12:00 DCW (Rec: 06/02/24 17:34 DCW [id number]) Shoulder Strength Shoulder Manual Muscle Testing Right Flexion 2 Poor Abduction (C5) 2 Poor External Rotation 2 Poor Internal Rotation 2 Poor Left Flexion 2+ Poor+ Abduction (C5) 2+ Poor+ External Rotation 2+ Poor+ Internal Rotation 2+ Poor+ PT-OP-Q Treatments Start: 06/02/24 16:57 Freq: Status: Active Protocol: Document 08/26/24 10:56 AB (Rec: 08/26/24 14:15 AB [id number]) Therapeutic Exercises Supine Exercises ER Supine Exercise Name ER /c PVC Side bilateral Comments Semi-reclined Sitting Exercises Overhead Press Sitting Exercise Name Overhead press /c PVC Side bilateral Reps/Minutes 8 X Comments verbal cues to perform in pain free range chair push up Sitting Exercise Name HEP Side bilateral Reps/Minutes X10 Comments verbal cues side sit to upright Reps/Minutes X5 each side PROM Sitting Exercise Name Pulleys - Flexion, Abduction Side bilateral Reps/Minutes 2 min each External Rotation Side bilateral Reps/Minutes X8 Comments level one band Manual Therapy Treatment Consent Patient gave verbal consent for manual Yes treatment Soft Tissue Mobilization bilateral shoulders Body Location bilateral shoulder ant and post also right bicep this session Mobilization Type Cross-Friction,Rolling Intensity/Depth Superficial Body Position Sitting Comments R>L Joint Mobilizations scapular mobilization Joint bilateral scapula Direction into depression and adduction Grade III Body Position Hooklying Reps/Duration X10 each direction each shoulder Comments seated for left UE Manual Techniques isometric scapular Type add and depression Body Position Hooklying Reps/Duration X10 each direction each UE manual resistance Comments seated for left UE PROM Type contract relax ER Body Location right UE Body Position Hooklying Reps/Duration X2 Comments verbal cues, monitored for pain PT-OP-T Assessment and Plan Start: 06/02/24 16:57 Freq: Status: Active Protocol: Document 08/26/24 10:56 AB (Rec: 08/26/24 14:15 AB [id number]) Physical Therapy Assessment Goals Three Impairment Pt reports right shoulder pain often 4-5/10, limiting sleep Senior Living Goal (LTG) Pt to reports one full week of pain not exceeding 3/10 to help improve sleep patterns LTG Duration 08/03/24 Two Impairment Significant limitations in R shoulder AROM flexion (62?)/ abduction (64?) Senior Living Goal (LTG) Pt to demonstrate improved shoulder AROM to 110? with both flexion and abduction bilaterally in order to improve ability to lift objects overhead into kitchen cabinets. LTG Duration 08/03/24 One Impairment Pt does not have an appropriate home exercise program Short Term Goal (STG) Pt to be independent and compliant with an appropriate HEP STG Duration 07/03/24 Assessment Summary Assessment 103 deg AROM right shoulder flexion end of session, likely due to fatigue. Good return demonstration and tolerance for chair push ups. Physical Therapy Plan Frequency and Duration Frequency of Treatment 1-2x/Week Plan of Care Start Date 07/24/24 Plan of Care End Date 09/23/24 Next Visit Focus/Plan Next Note Type Treatment Note Next Visit Plan PROM/stretching, gentle strengthening, improving activity tolerance review chair push up, STM to right bicep, possibly contract relax
--- NOTE | 2024-08-31 11:30 | PT.OTN ---
Current Diagnoses Other specific arthropathies, not elsewhere classified, right shoulder (08/31/24) Other specific arthropathies, not elsewhere classified, left shoulder (08/31/24) Pain in right shoulder (08/31/24) Pain in left shoulder (08/31/24) Stiffness of right shoulder, not elsewhere classified (08/31/24) Stiffness of left shoulder, not elsewhere classified (08/31/24) Unspecified rotator cuff tear or rupture of right shoulder, not specified as traumatic (08/31/24) Unspecified rotator cuff tear or rupture of left shoulder, not specified as traumatic (08/31/24) Physical Therapy Treatment Note PT-OP-A Visit Information Start: 06/02/24 16:57 Freq: Status: Active Protocol: Document 08/31/24 10:45 DCW (Rec: 08/31/24 11:30 DCW [id number]) Out-Patient Physical Therapy Visit Information Visit Information Visit Type Treatment Note Visit Start Time 10:45 Visit Stop Time 11:30 Visit Number 14 Number of SLATE HANDLER Visits 0 Evaluation Information Evaluation Date 06/02/24 PT-OP-B Current Condition Start: 06/02/24 16:57 Freq: Status: Active Protocol: Document 06/02/24 12:00 DCW (Rec: 06/02/24 17:34 DCW [id number]) Current Condition History of Current Condition Onset Date A few years Current Complaints R>L shoulder pain, stiffness History of Current Condition Pt is an 89 year old male presenting with a multi-year history of bilateral shoulder pain, notes right significantly worse than left. Pt notes there was no initial injury, just pain worsening over time. Has had multiple injections, but notes no real improvement. Unable to perform any overhead movements. Limited to lifting only very light weight. Personal Factors Other Personal Factors That May Effect CVA history, Alzheimer's Therapy/Recovery PT-OP-C Subjective Start: 06/02/24 16:57 Freq: Status: Active Protocol: Document 08/31/24 10:45 DCW (Rec: 08/31/24 11:30 DCW [id number]) OP-PT Subjective Patient Comments Patient Comments Not any better, not any worse . PT-OP-F Manual Assessment Start: 06/02/24 16:57 Freq: Status: Active Protocol: Document 06/02/24 12:00 DCW (Rec: 06/02/24 17:34 DCW [id number]) Manual Assessments Joint Mobility Assessment Joint Mobility Assessment Significant grinding, popping, and catching with passive R GH movement PT-OP-K Range of Motion Start: 06/02/24 16:57 Freq: Status: Active Protocol: Document 07/24/24 12:02 DCW (Rec: 07/24/24 12:47 DCW [id number]) Shoulder Goniometric Range of Motion Shoulder Right Active Testing Position Sitting Flexion 93 Abduction 65 External Rotation at 0 degrees Abduction 21 Internal Rotation Behind Back (text) T10 Left Active Testing Position Sitting Flexion 126 Abduction 180 External Rotation at 0 degrees Abduction 30 Internal Rotation Behind Back (text) T8 PT-OP-L Special Tests Start: 06/02/24 16:57 Freq: Status: Active Protocol: Document 06/02/24 12:00 DCW (Rec: 06/02/24 17:34 DCW [id number]) Special Tests Shoulder Special Tests Passive ER Rotator Cuff Test Results Positive R Lift-Off Rotator Cuff Test Results Negative Mercer Alonso Impingement Test Results Positive R Grind Labrum Test Results Positive R Empty Can Test Results Negative Clunk Test Test Results Positive R Belly Press Test Results Negative Apprehension Test Test Results Unable to position AC Joint Compression Test Results Negative PT-OP-M Strength Start: 06/02/24 16:57 Freq: Status: Active Protocol: Document 06/02/24 12:00 DCW (Rec: 06/02/24 17:34 DCW [id number]) Shoulder Strength Shoulder Manual Muscle Testing Right Flexion 2 Poor Abduction (C5) 2 Poor External Rotation 2 Poor Internal Rotation 2 Poor Left Flexion 2+ Poor+ Abduction (C5) 2+ Poor+ External Rotation 2+ Poor+ Internal Rotation 2+ Poor+ PT-OP-Q Treatments Start: 06/02/24 16:57 Freq: Status: Active Protocol: Document 08/31/24 10:45 DCW (Rec: 08/31/24 11:30 DCW [id number]) Therapeutic Exercises Sitting Exercises Adduction Sitting Exercise Name Shoulder Adduction - Seated Side bilateral Resistance Lv 2 Overhead Press Sitting Exercise Name Overhead press /c PVC Side bilateral Reps/Minutes x3 Comments Stopped d/t tightening up Abduction Sitting Exercise Name Shoulder Abduction Side bilateral Resistance 1# Curls Sitting Exercise Name Reverse Curls Side bilateral Resistance 2# PROM Sitting Exercise Name Pulleys - Flexion, Abduction Side bilateral Internal Rotation Sitting Exercise Name IR Side bilateral Resistance Lv 2 External Rotation Sitting Exercise Name ER Side bilateral Resistance Lv 2 Other Exercises Wall push-ups Other Exercise Name Wall push-ups Resisted side-stepping Other Exercise Name UE side-stepping Resistance Lv 1 loop Manual Therapy Treatment Consent Patient gave verbal consent for manual Yes treatment Soft Tissue Mobilization bilateral shoulders Body Location bilateral shoulder ant and post also right bicep this session Mobilization Type Cross-Friction,Strumming, Sustained Pressure Intensity/Depth Superficial Body Position Sitting Comments R>L Joint Mobilizations scapular mobilization Joint bilateral scapula Direction into depression and adduction Grade III Body Position Hooklying Reps/Duration X10 each direction each shoulder Comments seated for left UE PT-OP-T Assessment and Plan Start: 06/02/24 16:57 Freq: Status: Active Protocol: Document 08/31/24 10:45 DCW (Rec: 08/31/24 11:30 DCW [id number]) Physical Therapy Assessment Impairments Impairments Activity Tolerance,Functional Activities,Functional Mobility ,Pain,ROM,Soft Tissue Mobility ,Strength,Tone Goals Three Impairment Pt reports right shoulder pain often 4-5/10, limiting sleep Skilled Nursing Goal (LTG) Pt to reports one full week of pain not exceeding 3/10 to help improve sleep patterns LTG Duration 09/23/24 Two Impairment Significant limitations in R shoulder AROM flexion (62?)/ abduction (64?) Skilled Nursing Goal (LTG) Pt to demonstrate improved shoulder AROM to 110? with both flexion and abduction bilaterally in order to improve ability to lift objects overhead into kitchen cabinets. LTG Duration 09/23/24 One Impairment Pt does not have an appropriate home exercise program Short Term Goal (STG) Pt to be independent and compliant with an appropriate HEP STG Duration 08/23/24 Assessment Summary Assessment Pt very self-limiting today, noted his shoulders were bothering him, stopped multiple exercises with minimal reps. Continues to fatigue quickly. May be approaching progress plateau, will likely recommend return to PCP for follow-up if he does not start to progress more. Physical Therapy Plan Frequency and Duration Frequency of Treatment 1-2x/Week Plan of Care Start Date 07/24/24 Plan of Care End Date 09/23/24 Next Visit Focus/Plan Next Note Type Treatment Note Next Visit Plan PROM/stretching, gentle strengthening, improving activity tolerance review chair push up, STM to right bicep, possibly contract relax
--- NOTE | 2024-09-02 14:23 | PT.OTN ---
Current Diagnoses Other specific arthropathies, not elsewhere classified, right shoulder (09/02/24) Other specific arthropathies, not elsewhere classified, left shoulder (09/02/24) Pain in right shoulder (09/02/24) Pain in left shoulder (09/02/24) Stiffness of right shoulder, not elsewhere classified (09/02/24) Stiffness of left shoulder, not elsewhere classified (09/02/24) Unspecified rotator cuff tear or rupture of right shoulder, not specified as traumatic (09/02/24) Unspecified rotator cuff tear or rupture of left shoulder, not specified as traumatic (09/02/24) Physical Therapy Treatment Note PT-OP-A Visit Information Start: 06/02/24 16:57 Freq: Status: Active Protocol: Document 09/02/24 12:59 AB (Rec: 09/02/24 14:23 AB [id number]) Out-Patient Physical Therapy Visit Information Visit Information Visit Type Treatment Note Visit Note Access Code [email or web address] Visit Start Time 13:03 Visit Stop Time 13:45 Visit Number 15 Number of TOLL BRIDGE ATTENDANT Visits 1 Evaluation Information Evaluation Date 06/02/24 PT-OP-B Current Condition Start: 06/02/24 16:57 Freq: Status: Active Protocol: Document 06/02/24 12:00 DCW (Rec: 06/02/24 17:34 DCW [id number]) Current Condition History of Current Condition Onset Date A few years Current Complaints R>L shoulder pain, stiffness History of Current Condition Pt is an 89 year old male presenting with a multi-year history of bilateral shoulder pain, notes right significantly worse than left. Pt notes there was no initial injury, just pain worsening over time. Has had multiple injections, but notes no real improvement. Unable to perform any overhead movements. Limited to lifting only very light weight. Personal Factors Other Personal Factors That May Effect CVA history, Alzheimer's Therapy/Recovery PT-OP-C Subjective Start: 06/02/24 16:57 Freq: Status: Active Protocol: Document 09/02/24 12:59 AB (Rec: 09/02/24 14:23 AB [id number]) OP-PT Subjective Patient Comments Patient Comments AROM right shoulder flexion 99 deg start of session. Patient reports the arm doesn't hurt when resting. PT-OP-F Manual Assessment Start: 06/02/24 16:57 Freq: Status: Active Protocol: Document 06/02/24 12:00 DCW (Rec: 06/02/24 17:34 DCW [id number]) Manual Assessments Joint Mobility Assessment Joint Mobility Assessment Significant grinding, popping, and catching with passive R GH movement PT-OP-K Range of Motion Start: 06/02/24 16:57 Freq: Status: Active Protocol: Document 07/24/24 12:02 DCW (Rec: 07/24/24 12:47 DCW [id number]) Shoulder Goniometric Range of Motion Shoulder Right Active Testing Position Sitting Flexion 93 Abduction 65 External Rotation at 0 degrees Abduction 21 Internal Rotation Behind Back (text) T10 Left Active Testing Position Sitting Flexion 126 Abduction 180 External Rotation at 0 degrees Abduction 30 Internal Rotation Behind Back (text) T8 PT-OP-L Special Tests Start: 06/02/24 16:57 Freq: Status: Active Protocol: Document 06/02/24 12:00 DCW (Rec: 06/02/24 17:34 DCW [id number]) Special Tests Shoulder Special Tests Passive ER Rotator Cuff Test Results Positive R Lift-Off Rotator Cuff Test Results Negative Mercer Alonso Impingement Test Results Positive R Grind Labrum Test Results Positive R Empty Can Test Results Negative Clunk Test Test Results Positive R Belly Press Test Results Negative Apprehension Test Test Results Unable to position AC Joint Compression Test Results Negative PT-OP-M Strength Start: 06/02/24 16:57 Freq: Status: Active Protocol: Document 06/02/24 12:00 DCW (Rec: 06/02/24 17:34 DCW [id number]) Shoulder Strength Shoulder Manual Muscle Testing Right Flexion 2 Poor Abduction (C5) 2 Poor External Rotation 2 Poor Internal Rotation 2 Poor Left Flexion 2+ Poor+ Abduction (C5) 2+ Poor+ External Rotation 2+ Poor+ Internal Rotation 2+ Poor+ PT-OP-Q Treatments Start: 06/02/24 16:57 Freq: Status: Active Protocol: Document 09/02/24 12:59 AB (Rec: 09/02/24 14:23 AB [id number]) Therapeutic Exercises Sitting Exercises Adduction Sitting Exercise Name Shoulder Adduction - Seated Side bilateral Resistance Lv 2 Reps/Minutes X10 Overhead Press Sitting Exercise Name Overhead press /c PVC Side bilateral Reps/Minutes x4 and X6 Comments Stopped d/t tightening up side sit to upright Reps/Minutes X5 each side Extension Sitting Exercise Name Shoulder Extension Side bilateral Resistance Lv 1 Abduction Sitting Exercise Name Shoulder Abduction Side bilateral Resistance 1# Reps/Minutes X4 each limited by pain Curls Sitting Exercise Name Reverse Curls Side bilateral Resistance 2# Reps/Minutes X10 PROM Sitting Exercise Name Pulleys - Flexion, Abduction Side bilateral Reps/Minutes flexion 2 min abd 34 sec limited by pain External Rotation Sitting Exercise Name ER Side bilateral Resistance lv 1 Comments X10 Manual Therapy Treatment Soft Tissue Mobilization bilateral shoulders Body Location bilateral shoulder ant and post also right bicep this session Mobilization Type Cross-Friction,Strumming, Sustained Pressure Intensity/Depth Superficial Body Position Sitting Comments R>L Joint Mobilizations scapular mobilization Joint bilateral scapula Direction into depression and adduction Grade III Body Position Hooklying Reps/Duration X10 each direction each shoulder Comments seated for left UE PT-OP-T Assessment and Plan Start: 06/02/24 16:57 Freq: Status: Active Protocol: Document 09/02/24 12:59 AB (Rec: 09/02/24 14:23 AB [id number]) Physical Therapy Assessment Assessment Summary Assessment 107 deg flexion AROM right shoulder end of session, reports hardly any shoulder pain end of session 2/10 back pain Physical Therapy Plan Frequency and Duration Frequency of Treatment 1-2x/Week Plan of Care Start Date 07/24/24 Plan of Care End Date 09/23/24 Next Visit Focus/Plan Next Note Type Treatment Note Next Visit Plan PROM/stretching, gentle strengthening, improving activity tolerance review chair push up, STM to right bicep, possibly contract relax
--- NOTE | 2024-09-15 17:29 | PT.OTN ---
Current Diagnoses Other specific arthropathies, not elsewhere classified, right shoulder (09/15/24) Other specific arthropathies, not elsewhere classified, left shoulder (09/15/24) Pain in right shoulder (09/15/24) Pain in left shoulder (09/15/24) Stiffness of right shoulder, not elsewhere classified (09/15/24) Stiffness of left shoulder, not elsewhere classified (09/15/24) Unspecified rotator cuff tear or rupture of right shoulder, not specified as traumatic (09/15/24) Unspecified rotator cuff tear or rupture of left shoulder, not specified as traumatic (09/15/24) Physical Therapy Treatment Note PT-OP-A Visit Information Start: 06/02/24 16:57 Freq: Status: Active Protocol: Document 09/15/24 14:42 NBM (Rec: 09/15/24 15:25 NBM [id number]) Out-Patient Physical Therapy Visit Information Visit Information Visit Type Treatment Note Visit Note Son is present for full session Visit Start Time 14:35 Visit Stop Time 15:25 Visit Number 15 Number of GLASS INSPECTOR Visits 1 Evaluation Information Evaluation Date 06/02/24 PT-OP-B Current Condition Start: 06/02/24 16:57 Freq: Status: Active Protocol: Document 06/02/24 12:00 DCW (Rec: 06/02/24 17:34 DCW [id number]) Current Condition History of Current Condition Onset Date A few years Current Complaints R>L shoulder pain, stiffness History of Current Condition Pt is an 89 year old male presenting with a multi-year history of bilateral shoulder pain, notes right significantly worse than left. Pt notes there was no initial injury, just pain worsening over time. Has had multiple injections, but notes no real improvement. Unable to perform any overhead movements. Limited to lifting only very light weight. Personal Factors Other Personal Factors That May Effect CVA history, Alzheimer's Therapy/Recovery PT-OP-C Subjective Start: 06/02/24 16:57 Freq: Status: Active Protocol: Document 09/15/24 14:42 NBM (Rec: 09/15/24 15:25 NBM [id number]) OP-PT Subjective Patient Comments Patient Comments Maxim and Jarod report that pt didn't do as many ex's as usual because son was out of town and usually does ex's over phone with pt. Pt reports doing better in general, not hurting as much today. PT-OP-F Manual Assessment Start: 06/02/24 16:57 Freq: Status: Active Protocol: Document 06/02/24 12:00 DCW (Rec: 06/02/24 17:34 DCW [id number]) Manual Assessments Joint Mobility Assessment Joint Mobility Assessment Significant grinding, popping, and catching with passive R GH movement PT-OP-K Range of Motion Start: 06/02/24 16:57 Freq: Status: Active Protocol: Document 07/24/24 12:02 DCW (Rec: 07/24/24 12:47 DCW [id number]) Shoulder Goniometric Range of Motion Shoulder Right Active Testing Position Sitting Flexion 93 Abduction 65 External Rotation at 0 degrees Abduction 21 Internal Rotation Behind Back (text) T10 Left Active Testing Position Sitting Flexion 126 Abduction 180 External Rotation at 0 degrees Abduction 30 Internal Rotation Behind Back (text) T8 PT-OP-L Special Tests Start: 06/02/24 16:57 Freq: Status: Active Protocol: Document 06/02/24 12:00 DCW (Rec: 06/02/24 17:34 DCW [id number]) Special Tests Shoulder Special Tests Passive ER Rotator Cuff Test Results Positive R Lift-Off Rotator Cuff Test Results Negative Mercer Alonso Impingement Test Results Positive R Grind Labrum Test Results Positive R Empty Can Test Results Negative Clunk Test Test Results Positive R Belly Press Test Results Negative Apprehension Test Test Results Unable to position AC Joint Compression Test Results Negative PT-OP-M Strength Start: 06/02/24 16:57 Freq: Status: Active Protocol: Document 06/02/24 12:00 DCW (Rec: 06/02/24 17:34 DCW [id number]) Shoulder Strength Shoulder Manual Muscle Testing Right Flexion 2 Poor Abduction (C5) 2 Poor External Rotation 2 Poor Internal Rotation 2 Poor Left Flexion 2+ Poor+ Abduction (C5) 2+ Poor+ External Rotation 2+ Poor+ Internal Rotation 2+ Poor+ PT-OP-Q Treatments Start: 06/02/24 16:57 Freq: Status: Active Protocol: Document 09/15/24 14:42 NBM (Rec: 09/15/24 15:25 NBM [id number]) Therapeutic Exercises Sitting Exercises Adduction Sitting Exercise Name Shoulder Adduction - Seated Side bilateral Resistance Lv 2 Reps/Minutes X6 ea Comments cued pain-free range and UT overactivation Overhead Press Sitting Exercise Name Overhead press /c PVC Side bilateral Reps/Minutes 2x5 Extension Sitting Exercise Name Shoulder Extension Side bilateral Resistance Lv 1 Reps/Minutes 2x10 ea Abduction Sitting Exercise Name Shoulder Abduction Side bilateral Resistance 1# Reps/Minutes X4 each limited by pain Curls Sitting Exercise Name Reverse Curls Side bilateral Resistance 2# Reps/Minutes X10 Internal Rotation Sitting Exercise Name IR Side bilateral Resistance Lv 2 Reps/Minutes x10 ea External Rotation Sitting Exercise Name ER Side bilateral Resistance lv 1 Comments X10 ea Rows Sitting Exercise Name Rows Side bilateral Resistance level 2 band Reps/Minutes X10 ea Comments verbal cues Manual Therapy Treatment Consent Patient gave verbal consent for manual Yes treatment Soft Tissue Mobilization bilateral shoulders Body Location bilateral shoulder ant and post also right bicep this session Mobilization Type Cross-Friction,Strumming, Sustained Pressure Intensity/Depth Superficial Body Position Sitting Comments R>L shoulder focus. Palpable tension w/ tenderness along medial border of R scapula which improves w/ STM. PT-OP-T Assessment and Plan Start: 06/02/24 16:57 Freq: Status: Active Protocol: Document 09/15/24 14:42 [facility] (Rec: 09/15/24 15:25 [facility] [id number]) Physical Therapy Assessment Goals Three Impairment Pt reports right shoulder pain often 4-5/10, limiting sleep Shuttle Inspector Goal (LTG) Pt to reports one full week of pain not exceeding 3/10 to help improve sleep patterns LTG Duration 09/23/24 Two Impairment Significant limitations in R shoulder AROM flexion (62?)/ abduction (64?) Shuttle Inspector Goal (LTG) Pt to demonstrate improved shoulder AROM to 110? with both flexion and abduction bilaterally in order to improve ability to lift objects overhead into kitchen cabinets. LTG Duration 09/23/24 One Impairment Pt does not have an appropriate home exercise program Short Term Goal (STG) Pt to be independent and compliant with an appropriate HEP STG Duration 08/23/24 Assessment Summary Assessment Treatment focus on R Upper extremity strengthening and improving activity tolerance with emphasis on scapular setting with upright sitting posture as well as controlling Upper trapezius m. overactivation. Maxim requires consistent cues for scapular setting with fatigue and is educated for pain-free ROM with bilateral shoulder abduction of 1# weights; he cliffos improved self-awareness and control after cueing and with repetition but lacks carryover between ex's. Palpable tension to R shoulder improves with manual therapy. R shoulder flexion end of session 103 deg. Physical Therapy Plan Frequency and Duration Frequency of Treatment 1-2x/Week Plan of Care Start Date 07/24/24 Plan of Care End Date 09/23/24 Therapeutic Interventions Therapeutic Interventions Home Exercise Program,Joint Mobilizations,Manual Therapy, Neuromuscular Re-education, Patient/Caregiver Education, Self-Care/Home Management,Soft Tissue Mobilization, Therapeutic Activities, Therapeutic Exercises Modalities Cold Pack/Ice Massage,Hot Packs Next Visit Focus/Plan Next Note Type Treatment Note Next Visit Plan PROM/stretching, gentle strengthening, improving activity tolerance review chair push up, STM to right bicep, possibly contract relax
--- NOTE | 2024-09-22 14:31 | PT.OTN ---
Current Diagnoses Other specific arthropathies, not elsewhere classified, right shoulder (09/22/24) Other specific arthropathies, not elsewhere classified, left shoulder (09/22/24) Pain in right shoulder (09/22/24) Pain in left shoulder (09/22/24) Stiffness of right shoulder, not elsewhere classified (09/22/24) Stiffness of left shoulder, not elsewhere classified (09/22/24) Unspecified rotator cuff tear or rupture of right shoulder, not specified as traumatic (09/22/24) Unspecified rotator cuff tear or rupture of left shoulder, not specified as traumatic (09/22/24) Physical Therapy Treatment Note PT-OP-A Visit Information Start: 06/02/24 16:57 Freq: Status: Active Protocol: Document 09/22/24 13:45 DCW (Rec: 09/22/24 14:31 DCW [id number]) Out-Patient Physical Therapy Visit Information Visit Information Visit Type Discharge Summary Visit Note Son is present for full session Visit Start Time 13:45 Visit Stop Time 14:30 Visit Number 17 Number of CONCRETE PIPE PLANT SUPERVISOR Visits 0 Evaluation Information Evaluation Date 06/02/24 PT-OP-B Current Condition Start: 06/02/24 16:57 Freq: Status: Active Protocol: Document 06/02/24 12:00 DCW (Rec: 06/02/24 17:34 DCW [id number]) Current Condition History of Current Condition Onset Date A few years Current Complaints R>L shoulder pain, stiffness History of Current Condition Pt is an 89 year old male presenting with a multi-year history of bilateral shoulder pain, notes right significantly worse than left. Pt notes there was no initial injury, just pain worsening over time. Has had multiple injections, but notes no real improvement. Unable to perform any overhead movements. Limited to lifting only very light weight. Personal Factors Other Personal Factors That May Effect CVA history, Alzheimer's Therapy/Recovery PT-OP-C Subjective Start: 06/02/24 16:57 Freq: Status: Active Protocol: Document 09/22/24 13:45 DCW (Rec: 09/22/24 14:31 DCW [id number]) OP-PT Subjective Patient Comments Patient Comments I'm so used to it, I just already avoid doing things that are going to hurt, so shoulder pain doesn't typically impact day to day life. PT-OP-F Manual Assessment Start: 06/02/24 16:57 Freq: Status: Active Protocol: Document 09/22/24 13:45 DCW (Rec: 09/22/24 14:11 DCW [id number]) Manual Assessments Joint Mobility Assessment Joint Mobility Assessment Significant grinding, popping, and catching with passive R GH movement PT-OP-K Range of Motion Start: 06/02/24 16:57 Freq: Status: Active Protocol: Document 09/22/24 13:45 DCW (Rec: 09/22/24 14:11 DCW [id number]) Shoulder Goniometric Range of Motion Shoulder Right Active Testing Position Sitting Flexion 98 Abduction 83 External Rotation at 0 degrees Abduction 18 Internal Rotation Behind Back (text) T10 Left Active Testing Position Sitting Flexion 128 Abduction 130 External Rotation at 0 degrees Abduction 24 Internal Rotation Behind Back (text) T8 PT-OP-L Special Tests Start: 06/02/24 16:57 Freq: Status: Active Protocol: Document 09/22/24 13:45 DCW (Rec: 09/22/24 14:11 DCW [id number]) Special Tests Shoulder Special Tests Passive ER Rotator Cuff Test Results Positive R Lift-Off Rotator Cuff Test Results Negative Mercer Alonso Impingement Test Results Positive R Grind Labrum Test Results Positive R Empty Can Test Results Negative Clunk Test Test Results Positive R Belly Press Test Results Negative Apprehension Test Test Results Unable to position AC Joint Compression Test Results Negative PT-OP-M Strength Start: 06/02/24 16:57 Freq: Status: Active Protocol: Document 09/22/24 13:45 DCW (Rec: 09/22/24 14:11 DCW [id number]) Shoulder Strength Shoulder Manual Muscle Testing Right Flexion 2 Poor Abduction (C5) 2 Poor External Rotation 2 Poor Internal Rotation 2 Poor Left Flexion 2+ Poor+ Abduction (C5) 2+ Poor+ External Rotation 2+ Poor+ Internal Rotation 2+ Poor+ PT-OP-Q Treatments Start: 06/02/24 16:57 Freq: Status: Active Protocol: Document 09/22/24 13:45 DCW (Rec: 09/22/24 14:31 DCW [id number]) Therapeutic Exercises Sitting Exercises Overhead Press Sitting Exercise Name Overhead press /c PVC Side bilateral Reps/Minutes 2x5 Flexion Sitting Exercise Name Shoulder Flexion Side bilateral Resistance 2# Reps/Minutes x3 Comments cues for dec shoulder elevation Abduction Sitting Exercise Name Shoulder Abduction Side bilateral Resistance 2# Reps/Minutes X4 each limited by pain Curls Sitting Exercise Name Reverse Curls Side bilateral Resistance 2# Reps/Minutes x10 Manual Therapy Treatment Consent Patient gave verbal consent for manual Yes treatment Soft Tissue Mobilization bilateral shoulders Body Location bilateral shoulder ant and post also right bicep this session Mobilization Type Cross-Friction,Strumming, Sustained Pressure Intensity/Depth Superficial Body Position Sitting Comments R>L shoulder focus. Palpable tension w/ tenderness along medial border of R scapula which improves w/ STM. PT-OP-T Assessment and Plan Start: 06/02/24 16:57 Freq: Status: Active Protocol: Document 09/22/24 13:45 DCW (Rec: 09/22/24 14:31 DCW [id number]) Physical Therapy Assessment Impairments Impairments Activity Tolerance,Functional Activities,Functional Mobility ,Pain,ROM,Soft Tissue Mobility ,Strength,Tone Goals Three Impairment Pt reports right shoulder pain often 4-5/10, limiting sleep Fdc Goal (LTG) Pt to reports one full week of pain not exceeding 3/10 to help improve sleep patterns LTG Duration 09/23/24 Two Impairment Significant limitations in R shoulder AROM flexion (62?)/ abduction (64?) Supervisor Pastry Goal (LTG) Pt to demonstrate improved shoulder AROM to 110? with both flexion and abduction bilaterally in order to improve ability to lift objects overhead into kitchen cabinets. LTG Duration 09/23/24 One Impairment Pt does not have an appropriate home exercise program Short Term Goal (STG) Pt to be independent and compliant with an appropriate HEP STG Duration 08/23/24 Assessment Summary Assessment Pt has largely plateaued, ROM largely unchanged since last reassessment. Discussed with patient and son, and they both agree that he has made good overall progress, but has probably reached his max improvement. Understand ongoing HEP, agreeable to discharge from skilled therapy at this time. Physical Therapy Plan Frequency and Duration Frequency of Treatment 1-2x/Week Plan of Care Start Date 07/24/24 Plan of Care End Date 09/23/24 Therapeutic Interventions Therapeutic Interventions Home Exercise Program,Joint Mobilizations,Manual Therapy, Neuromuscular Re-education, Patient/Caregiver Education, Self-Care/Home Management,Soft Tissue Mobilization, Therapeutic Activities, Therapeutic Exercises Modalities Cold Pack/Ice Massage,Hot Packs Discharge Physical Therapy Discharge Reasons Plateau in Progress Next Visit Focus/Plan Next Note Type Discharge Summary
== END 2024-10-14 09:02 | disposition home or self-care (01) ==
LOC: PHYS 13:45
PROVIDERS: Family Provider Student in an Organized Health Care Education/Training Program; PCP Family Medicine; Referring Provider Physical Medicine & Rehabilitation; Visit Provider Physical Medicine & Rehabilitation
DX: M75.101 Unspecified rotator cuff tear or rupture of right shoulder, not specified as traumatic (principal); M12.811 Other specific arthropathies, not elsewhere classified, right shoulder; M12.812 Other specific arthropathies, not elsewhere classified, left shoulder; M75.102 Unspecified rotator cuff tear or rupture of left shoulder, not specified as traumatic; M25.612 Stiffness of left shoulder, not elsewhere classified; M25.611 Stiffness of right shoulder, not elsewhere classified; M25.512 Pain in left shoulder; M25.511 Pain in right shoulder
CPT/HCPCS: 97110; 97140; 97163

== ENCOUNTER → 2024-09-23 11:52 | Outpatient (CLI) | payer MEDICARE, SELFPAY ==
--- NOTE | 2024-09-23 11:54 | DI.US.S_ITS ---
PROCEDURE: US THYROID INDICATIONS: DECREASED THYROID LEVELS. THYROID NODULES ULTRASOUND 2019. TECHNIQUE: Real-time scanning was performed of the thyroid gland, with image documentation. COMPARISON: [facility], US, US THYROID, 06/22/2019, 14:48. FINDINGS: Thyroid: Right lobe measures 8.8 x 5.7 x 3.4 cm (slightly larger than prior). Left lobe measures 9.1 x 4.4 x 4.6 cm (slightly larger than prior). Isthmus is 1.1 cm thick. Echotexture is heterogeneous and multinodular. Please note the left inferior thyroid is not well seen, previous inferior nodule unable to assess. Right dominant nodule measures 6.6 x 5.5 x 3.1 cm previously 5.7 x 4.5 x 3.1 cm. It is solid and isoechoic. Macro calcifications are present. TR 4. Left superior nodule measures 2.4 x 2 x 1.6 cm previously 2.3 x 2.2 x 2.1 cm. It is solid and hypoechoic with macro calcifications. TR 4. Left mid nodule measures 2.1 x 1.5 x 1.2 cm previously 1.3 x 1.5 x 1.3 cm. It is solid and hypoechoic. TR 4. Left lateral anterior nodule measures 2.3 x 1.6 x 1.1 cm previously 2.6 by 2.1 x 1.8 cm. It is solid and hypoechoic. TR 4. IMPRESSION: Enlarged multinodular thyroid, overall thyroid volumes have slightly increased. Multiple nodules described above with suspicious characteristics, either similar to prior or slightly increased, all of which technically meeting criteria for sampling if not already obtained. Given multiplicity and increasing size of the thyroid overall, surgical consultation could also be considered. ACR TI-RADS definitions and recommendations: TI-RADS 1 (benign): 0 points. FNA not needed. TI-RADS 2 (not suspicious): 2 points. FNA not needed. TI-RADS 3: 3 points. * FNA if 2.5 cm or larger, follow up if 1.5 cm or larger (at 1, 3, and 5 years). TI-RADS 4: 4-6 points. * FNA if 1.5 cm or larger, follow up if 1 cm or larger (at 1, 2, 3, and 5 years). TI-RADS 5: 7 points or more. * FNA if 1 cm or larger, follow up if 0.5 cm or larger (every year for 5 years). Dictated by: Maurice Hurt M.D. on 09/27/2024 at 7:53 Approved by: Maurice Hrut M.D. on 09/27/2024 at 7:59
== END ==
LOC: US 11:53
PROVIDERS: Family Provider Student in an Organized Health Care Education/Training Program; PCP Family Medicine; Referring Provider Family Medicine; Visit Provider Family Medicine
DX: E04.2 Nontoxic multinodular goiter (principal); E05.90 Thyrotoxicosis, unspecified without thyrotoxic crisis or storm; R79.89 Other specified abnormal findings of blood chemistry
CPT/HCPCS: 76536

== ENCOUNTER → 2024-10-23 13:30 | Outpatient (CLI) | payer MEDICARE, SELFPAY ==
--- NOTE | 2024-10-23 13:32 | DI.US.S_ITS ---
PROCEDURE: US FINE NEEDLE ASPIRATION INDICATIONS: ENLARGED MULTINODULAR THYROID TECHNIQUE: The indications, alternatives, benefits, risks, and complications of the procedure were explained to the patient. Written informed consent was obtained and placed in the chart. The area is of interest were examined sonographically and sites were chosen for ultrasound guided percutaneous sampling. The skin was prepared and draped in the usual fashion, and anesthetized with 1% lidocaine infiltrated from the skin down to the lesion. Multiple passes were then performed, with contents emptied into an appropriate pathology specimen container. A bandage was applied to the area of access at completion of the study. COMPARISON: None. FINDINGS: Location(s) of lesion(s) sampled: Right thyroid lobe nodule 1 measuring greater than 5 cm and the superior most left thyroid nodule which is hypoechoic and contains internal calcifications. [place] and number of passes: 6 X 25 gauge hypodermic needles per nodule. Medications: 1% lidocaine for local anaesthesia. Complications: None. IMPRESSION: Ultrasound-guided left and right thyroid nodule fine needle aspiration, with cytology results pending. Dictated by: Rene Tracey M.D. on 10/23/2024 at 15:21 Approved by: Rene Tracey M.D. on 10/23/2024 at 15:23
--- NOTE | 2024-10-23 14:31 | PATH_ITS ---
Note [facility] Accession Number: [id number] TESTS RESULT FLAG UNITS REF RANGE LAB Clinician Provided Cytology Information No. of containers..01 Other (Miscellaneous) No. of containers..02 Previously Prepared Cytology Slide Source: RIGHT THYROID NODULE #1 DIAGNOSIS: RIGHT THYROID NODULE #1 NEGATIVE FOR MALIGNANT CELLS. B[place] CATEGORY II. SPECIMEN CONSISTS OF BENIGN FOLLICULAR CELLS, HEMOSIDERIN-LADEN MACROPHAGES, COLLOID, AND BLOOD. THIS PATTERN IS CONSISTENT WITH FOLLICULAR NODULAR DISEASE. Pathologist ICD10: 01 E04.1 Signed out by: Katrin Loving MD, Pathologist NPI- [id number] Performed by: Jeovanny Melendez, Special Education Teaching Assistant ([facility] [place]) Gross description: 30 CC, COLORLESS, CLEAR RECEIVED IN CYTOLYT WHITE CAP CONTAINER. RECEIVED 6 FIXED ALCOHOL SLIDES IN 2 GREEN CAP COFFINS. RECEIVED 6 FIXED STAINED SLIDES IN 2 COFFINS. RECEIVED 1 RNA VIAL. : 07-31-25 ARLEY /HEMANT 10/26/2024 1131 Local FLAG LEGEND: L-Low Normal,H-High Normal,LL-Alert Low,HH-Alert High <-Panic Low,>-Panic High,A-Abnormal,AA-Critical Abnormal Performed at: 01 =Z [facility], [place] [address] Rene Ramos MD, Performed at: [address], [place], [place] [id number] MD Rene Ramos MD Phone: [phone]
--- NOTE | 2024-10-23 14:32 | PATH_ITS ---
Note [facility] Accession Number: [id number] TESTS RESULT FLAG UNITS REF RANGE LAB Clinician Provided Cytology Information No. of containers..01 Other (Miscellaneous) No. of containers..02 Previously Prepared Cytology Slide Source: LEFT THYROID NODULE DIAGNOSIS: LEFT THYROID NODULE NEGATIVE FOR MALIGNANT CELLS. BETHESDA CATEGORY II. SPECIMEN CONSISTS OF BENIGN FOLLICULAR CELLS, COLLOID, AND BLOOD. THIS PATTERN IS CONSISTENT WITH FOLLICULAR NODULAR DISEASE. Pathologist ICD10: E04.1 Signed out by: Katrin Loving MD, Pathologist NPI- [id number] Performed by: Heather Membreno, Research Dietitian ([facility]) Gross description: 30 CC, COLORLESS, CLEAR RECIEVED IN CYTOLYT WHITE CAP CONTAINER. RECEIVED 6 FIXED STAINED SLIDES IN 2 COFFINS. RECEIVED 6 FIXED ALCOHOL SLIDES IN 2 GREEN CAP COFFINS. RECEIVED 1 RNA VIAL. : 07-31-25 ARLEY /HEMANT 10/26/2024 1133 Local FLAG LEGEND: L-Low Normal,H-High Normal,LL-Alert Low,HH-Alert High <-Panic Low,>-Panic High,A-Abnormal,AA-Critical Abnormal Performed at: 01 =Z [facility], [place] [address] Rene Ramos MD, Performed at: [address], [place], [place] [id number] MD Rene Ramos MD Phone: [phone]
== END ==
PROVIDERS: Family Provider Student in an Organized Health Care Education/Training Program; PCP Family Medicine; Referring Provider Radiology Diagnostic Radiology; Visit Provider Radiology Diagnostic Radiology
DX: E04.2 Nontoxic multinodular goiter (principal)
CPT/HCPCS: 10005; 10006

== ENCOUNTER → 2024-11-10 13:58 | Outpatient (CLI) | payer MEDICARE, SELFPAY ==
[2024-11-10 14:48] LABS: Free T3, Triiodothyronine Free 5.28 pg/mL (2.77-5.27)
[2024-11-11 14:36] LABS: Anti Thyroglobulin Antibody <1.0 IU/mL (0.0-0.9); Thyroid Peroxidase Antibodies 11 IU/mL (0-34)
== END ==
PROVIDERS: Family Provider Student in an Organized Health Care Education/Training Program; PCP Family Medicine; Referring Provider Family Medicine; Visit Provider Family Medicine
DX: R79.89 Other specified abnormal findings of blood chemistry (principal); E04.2 Nontoxic multinodular goiter; E04.1 Nontoxic single thyroid nodule; E05.90 Thyrotoxicosis, unspecified without thyrotoxic crisis or storm
CPT/HCPCS: 36415; 84481; 86376; 86800

== ENCOUNTER → 2024-12-22 13:29 | Outpatient (CLI) | payer MEDICARE, SELFPAY ==
[2024-12-22 14:40] LABS: Free T3, Triiodothyronine Free 4.19 pg/mL (2.77-5.27)
[2024-12-22 14:54] LABS: TSH w/ Reflex to FT4 0.04 uIU/mL (0.47-4.68)
[2024-12-22 15:28] LABS: Free T4, Direct Thyroxine 1.08 ng/dL (0.78-2.19)
[2024-12-23 14:37] LABS: Anti Thyroglobulin Antibody <1.0 IU/mL (0.0-0.9); Thyroid Peroxidase Antibodies 9 IU/mL (0-34)
== END ==
PROVIDERS: Family Provider Student in an Organized Health Care Education/Training Program; PCP Family Medicine; Referring Provider Family Medicine; Visit Provider Family Medicine
DX: E05.90 Thyrotoxicosis, unspecified without thyrotoxic crisis or storm (principal); R79.89 Other specified abnormal findings of blood chemistry; E04.2 Nontoxic multinodular goiter
CPT/HCPCS: 36415; 84439; 84443; 84481; 86376; 86800

== ENCOUNTER → 2024-12-29 15:01 | Outpatient (CLI) | payer MEDICARE, SELFPAY ==
[2024-12-29 17:09] LABS: Add Manual Diff / Slide Review NO; Basophils Absolute Auto 0 /uL (0-100); Basophils Percent Auto 0.5 % (0-2); Eosinophils Absolute Auto 200 /uL (0-450); Eosinophils Percent Auto 2.2 % (2-4); Hematocrit 41.3 % (41-53); Lymphocytes Absolute Auto 2300 /uL (1100-4500); Mean Corpuscular Hemoglobin 29.3 PG (26-34); Mean Corpuscular Volume 86.3 fL (80-100); Monocytes Absolute Auto 400 /uL (0-900); Monocytes Percent Auto 5.3 % (3-14); Neutrophils Absolute Auto 5200 /uL (1500-7000); Platelet Count 199 X10^3/uL (150-400); Red Blood Cell Count 4.78 X10^6/uL (4.5-5.9); Red Cell Distribution Width 14.1 % (11.6-14.8); White Blood Cell Count 8.2 X10^3/uL (4.5-11.0)
[2024-12-29 17:24] LABS: Alanine Aminotransferase 18 IU/L (<50); Albumin 3.9 g/dL (3.5-5.0); Albumin Globulin Ratio 1.6 (1.0-2.8); Alkaline Phosphatase 59 U/L (38-126); Aspartate Aminotransferase 23 IU/L (17-59); BUN Creatinine Ratio 34.9 (6-22); Bilirubin Total 0.5 mg/dL (0.2-1.3); Blood Urea Nitrogen 37 mg/dL (9-20); Calcium 9.9 mg/dL (8.4-10.2); Carbon Dioxide 24 mmol/L (22-32); Chloride 103 mmol/L (98-107); Estimated Glomerular Filt Rate > 60 mL/min (>60); Globulin 2.5 g/dL (1.7-4.1); Glucose 130 mg/dL (80-110); HEMOLYSIS < 15 (0-50); Potassium 4.9 mmol/L (3.4-5.1); Sodium 138 mmol/L (137-145); Total Protein 6.4 g/dL (6.3-8.2)
[2024-12-29 18:13] LABS: Prostate Specific Antigen < 0.064 ng/mL (0.10-4.00)
== END ==
PROVIDERS: Family Provider Student in an Organized Health Care Education/Training Program; PCP Family Medicine; Referring Provider Family Medicine; Visit Provider Urology
DX: C61 Malignant neoplasm of prostate (principal); R79.89 Other specified abnormal findings of blood chemistry; E05.90 Thyrotoxicosis, unspecified without thyrotoxic crisis or storm; I95.9 Hypotension, unspecified; Z79.899 Other long term (current) drug therapy; I10 Essential (primary) hypertension
CPT/HCPCS: 36415; 80053; 84153; 85025

== ENCOUNTER → 2025-01-07 14:45 | Outpatient (CLI) | payer MEDICARE, SELFPAY ==
--- NOTE | 2025-01-07 14:45 | DI.RAD.S_ITS ---
PROCEDURE: XR DEXA AXIAL SKELETON INDICATIONS: Prostate cancer/osteopenia COMPARISON: [facility], , XR DEXA AXIAL SKELETON, 04/25/2022, 14:02. FINDINGS: Left Femoral Neck: Bone mineral density 0.826 (previously 0.803) g/cm2, T score -0.2 (previously-0.4) Left Hip: Bone mineral density 1.095 (previously 1.056) g/cm2, T score 1.3 (previously 0.9). Left Forearm: Bone mineral density 0.810 g/cm2, T score 1.9. Fracture Risk Calculation (when applicable): 10-year fracture risk of a major osteoporotic fracture 4.8 percent and of a hip fracture 1.7 percent. (T score greater or equal to -1.0 to: NORMAL) (T score from -1.1 to -2.4: OSTEOPENIA) (T score less than or equal to -2.5: OSTEOPOROSIS) IMPRESSION: Normal---recommend repeat DEXA as clinically indicated. Follow-up guidelines as follows: Osteoporosis: Consider a repeat DEXA and Vertebral Fracture Assessment (VFA) exam in 2 years or sooner if medically necessary, to reassess this patient's status. Osteopenia: Consider a repeat DEXA in 2-3 years to reassess this patient's status, or if there is a new clinical indication. Normal: Consider a repeat DEXA in 5 years or sooner, or if there is a new clinical indication. All treatment decisions require clinical judgment and consideration of individual patient factors, including patient preferences, comorbidities, previous drug use, risk factors not captured in the FRAX model (e.g., frailty, falls, vitamin D deficiency, increased bone turnover, interval significant decline in bone density ) and possible under- or over-estimation of fracture risk by FRAX. In addition, the NOF Guide recommends that FDA-approved medical therapies be considered in postmenopausal women and men age >= 50 years with a: * Hip or vertebral (clinical or morphometric) fracture * T-score of <=-2.5 at the spine or hip * Ten-year fracture probability by FRAX of >= 3% for hip fracture or >=20% for major osteoporotic fracture. Dictated by: Miguel Mathew M.D. on 01/07/2025 at 20:45 Approved by: Miguel Mathew M.D. on 01/07/2025 at 20:47
== END ==
PROVIDERS: Family Provider Student in an Organized Health Care Education/Training Program; PCP Family Medicine; Referring Provider Urology; Visit Provider Urology
DX: M81.0 Age-related osteoporosis without current pathological fracture (principal)
CPT/HCPCS: 77080

== ENCOUNTER 2025-07-26 12:39 | Emergency (ER) | payer MEDICARE, SELFPAY ==
[2025-07-26] VITALS (9 sets, daily range): BP systolic 120–174; BP diastolic 59–79; PULSE 67–80; RESP 14–19; TEMP 36.6; O2SAT 96–98; BMI 34.4
[2025-07-26 13:53] LABS: Add Manual Diff / Slide Review NO; Hematocrit 39.2 % (41-53); Hemoglobin 13.5 g/dL (13.5-17.5); Lymphocytes Absolute Auto 1400 /uL (1100-4500); Mean Corpuscular HGB Conc 34.4 % (30-36); Mean Corpuscular Hemoglobin 28.3 PG (26-34); Mean Corpuscular Volume 82.3 fL (80-100); Platelet Count 184 X10^3/uL (150-400)
[2025-07-26 14:05] LABS: Alanine Aminotransferase 17 IU/L (<50); Albumin 3.5 g/dL (3.5-5.0); Albumin Globulin Ratio 1.3 (1.0-2.8); Alkaline Phosphatase 61 U/L (38-126); Blood Urea Nitrogen 26 mg/dL (9-20); Calcium 8.8 mg/dL (8.4-10.2); Carbon Dioxide 20 mmol/L (22-32); Chloride 105 mmol/L (98-107); Creatine Kinase 48 U/L (55-170); Estimated Glomerular Filt Rate > 60 mL/min (>60); Globulin 2.8 g/dL (1.7-4.1); Glucose 148 mg/dL (70-99); HEMOLYSIS < 15 (0-50); Lipase 159 U/L (23-300); Magnesium 1.9 mg/dL (1.6-2.3); Potassium 3.7 mmol/L (3.4-5.1); Sodium 134 mmol/L (137-145); Total Protein 6.3 g/dL (6.3-8.2)
[2025-07-26 14:14] LABS: INR 1.1 (0.9-1.3); PTT Partial Thromboplastin Tim 28 SECONDS (25.1-36.5); Prothrombin Time 12.3 SECONDS (9.4-12.5)
[2025-07-26 14:17] LABS: NT-proBNP (BNP-Adult 18+) 235 pg/mL (<450); Troponin I < 0.012 ng/mL (0.01-0.034)
--- NOTE | 2025-07-26 14:39 | ED.NAVMDI ---
HPI - Nausea/Vomiting/Diarrhea General Chief complaint: Nausea/Vomiting/Diarrhea Stated complaint: fatigued about a wk, feels off Time Seen by Provider: 07/26/25 13:39 Source: patient and family Mode of arrival: Ambulatory History of Present Illness HPI Narrative: Patient 89-year-old male history of Alzheimer's lives independently hyperlipidemia hypertension presenting today with ongoing fatigue. The son checks in on him once a week and has noted a gradual decline. 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 No difficulty walking no weakness patient awake alert following commands able to engage in conversation. Son states that his hemoglobin A1c was tight checked recently and it was 6.8, thought this might be contributing to it. No injuries no abdominal pain no nausea no vomiting. Son does report couple episodes of diarrhea but patient says it is not that bad an overall getting better. Related Data Home Medications ?Medication ?Instructions ?Recorded ?Confirmed denosumab 60 mg/mL subcutaneous 60 mg SUBCUT [id number] 01/21/23 07/16/25 syringe (Prolia) latanoprost 0.005 % eye drops 1 drp EYE-LEFT DAILY 03/01/23 07/16/25 donepezil 5 mg tablet 5 mg PO DAILY 06/22/24 07/16/25 leuprolide acetate (6 month) IM [id number] 12/29/24 07/16/25 [Lupron Depot (6 Month)] donepezil 10 mg tablet 10 mg PO ONCE PM 01/25/25 07/16/25 Previous Rx's ?Medication ?Instructions ?Recorded atorvastatin 40 mg tablet 40 mg PO HS #90 tabs 11/18/24 losartan 100 mg tablet (Cozaar) 100 mg PO DAILY #90 tabs 03/23/25 finasteride 5 mg tablet 5 mg PO DAILY urinary dribbling 05/05/25 #90 tabs diltiazem HCl 180 mg 180 mg PO DAILY #90 caps 06/14/25 capsule,extended release 24 hr Allergies Allergy/AdvReac Type Severity Reaction Status Date / Time fluoride AdvReac Severe mouth sores Verified 07/26/25 12:56 adhesive tape AdvReac Mild redness Verified 07/26/25 12:56 and bruises amoxicillin (AMOXICILLIN) AdvReac Mild DIARRHEA Verified 07/26/25 12:56 Penicillins (PENICILLINS) AdvReac Mild DIARRHEA Verified 07/26/25 12:56 Patient History Medical History Functional memory problem Prostate cancer metastatic to intrapelvic lymph node Biochemically recurrent malignant neoplasm of prostate 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 DJD of both shoulders Recurrent prostate cancer Urinary incontinence, mixed Subclinical hyperthyroidism TIA (transient ischemic attack) Spondylolisthesis at L4-L5 level Cardiac arrhythmia Multinodular goiter Basal cell carcinoma Squamous cell carcinoma Cataracts, bilateral Osteopenia Spinal stenosis Diabetes Colon polyps Hyperlipemia Hypertension Surgical History Hx of squamous cell carcinoma excision Hx of basal cell carcinoma excision Hx of transurethral resection of prostate Hx of prostatectomy Hx of laminectomy Family History Father No problems noted. Mother Cancer Daughter Thyroid disorder Social History marital status: number of children: 2 household members: none Tobacco: How many years used: 60 alcohol intake: current caffeine: Yes Smoking Status: Former smoker alcohol intake frequency: 0-2 drinks per day Exam Initial Vital Signs Initial Vital Signs: Vital Signs Temperature 97.8 F 07/26/25 12:46 Pulse Rate 80 07/26/25 12:46 Respiratory Rate 18 07/26/25 12:46 Blood Pressure 129/67 07/26/25 12:46 Pulse Oximetry 98 07/26/25 12:46 Oxygen Delivery Method Room Air 07/26/25 12:46 GENERAL: Alert pleasant 89-year-old male and in no acute distress. HEENT: Head atraumatic,EOMI, pupils reactive, face symmetric, moist mucous membranes CARDIOVASCULAR: Regular rate and rhythm without murmurs, rubs or gallops. RESPIRATORY: Breath sounds equal bilaterally, no wheezes rales or rhonchi. ABDOMEN: Soft, nontender. Normoactive bowel sounds all 4 quadrants. No guarding or rebound. EXTREMITIES: Normal range of motion, no clubbing or edema. Neurovascularly intact NEUROLOGICAL: Alert and oriented x4.Normal gait and speech. Cranial nerves II through XII grossly intact. Manager Alliance strength equal bilaterally moving all extremities SKIN: Warm, dry, no laceration, no petechiae, no rashes or lesions. Course Orders Ordered: ED Orders 07/26/25 13:45 Complete Blood Count AUTO DIFF Stat Comprehensive Metabolic Panel Stat Lipase Stat Magnesium Stat NT-proBNP (BNP-Adult 18+) Stat PTT Partial Thromboplastin [place] Stat Prothrombin Time INR Stat Troponin & CK Cardiac Panel Stat Vital Signs Vital signs: Vital Signs - 8 hr 07/26/25 12:46 Temperature 97.8 F Pulse Rate 80 Respiratory Rate 18 Blood Pressure 129/67 Pulse Oximetry 98 Oxygen Delivery Method Room Air MDM - Nausea/Vomiting/Diarrhea Lab Data 07/26/25 13:45 07/26/25 13:45 Labs: Lab Results 07/26/25 07/26/25 Range/Units 13:45 14:59 WBC 6.7 (4.5-11.0) X10^3/uL RBC 4.77 (4.5-5.9) X10^6/uL Hgb 13.5 (13.5-17.5) g/dL Hct 39.2 L (41-53) % MCV 82.3 (80-100) fL MCH 28.3 (26-34) PG MCHC 34.4 (30-36) % RDW 14.1 (11.6-14.8) % Plt Count 184 (150-400) X10^3/uL Neut % (Auto) 70.9 (50-75) % Lymph % (Auto) 21.0 L (25-40) % [place] % (Auto) 6.4 (3-14) % Eos % (Auto) 0.9 L (2-4) % Baso % (Auto) 0.8 (0-2) % Neut # (Auto) 4800 (2753-2771) /uL Lymph # (Auto) 1400 (5810-8641) /uL [place] # (Auto) 400 (0-900) /uL Eos # (Auto) 100 (0-450) /uL Baso # (Auto) 100 (0-100) /uL PT 12.3 (9.4-12.5) SECONDS INR 1.1 (0.9-1.3) APTT 28 (25.1-36.5) SECONDS Sodium 134 L (137-145) mmol/L Potassium 3.7 (3.4-5.1) mmol/L Chloride 105 (98-107) mmol/L Carbon Dioxide 20 L (22-32) mmol/L BUN 26 H (9-20) mg/dL Creatinine 0.81 (0.66-1.25) mg/dL Estimated GFR > 60 (>60) mL/min BUN/Creatinine Ratio 32.1 H (6-22) Glucose 148 H (70-99) mg/dL Calcium 8.8 (8.4-10.2) mg/dL Magnesium 1.9 (1.6-2.3) mg/dL Total Bilirubin 0.5 (0.2-1.3) mg/dL AST 21 (17-59) IU/L ALT 17 (<50) IU/L Alkaline Phosphatase 61 (38-126) U/L Total Creatine Kinase 48 L (55-170) U/L Troponin I < 0.012 (0.01-0.034) ng/mL NT-Pro-B Natriuret Pep 235 (<450) pg/mL Total Protein 6.3 (6.3-8.2) g/dL Albumin 3.5 (3.5-5.0) g/dL Globulin 2.8 (1.7-4.1) g/dL Albumin/Globulin Ratio 1.3 (1.0-2.8) Lipase 159 (23-300) U/L Urine RBC 1-5/hpf (0-5/HPF) Urine WBC 0-1/hpf (0-5/HPF) Ur Squamous Epith Cells 0-1 /hpf (0-5/HPF) Urine Bacteria Occasional (0-1) (None) Urine Mucus 1+ H (Negative) Ur Culture Indicated? Cult not indicated Vol Urine Centrifuged 10ml (spun) Urine Dip Bedside Urine Glucose Negative Bedside Urine Bilirubin - Negative Bedside Urine Ketone - Negative Urine Specific [place] 1.020 Bedside Urine Occult Blood + Bedside Urine pH 6.5 Bedside Urine Protein - Negative Bedside Urine Urobilinogen - Negative Bedside Urine Nitrite - Negative Bedside Urine Leukocytes - Negative Esterase MDM Narrative Medical decision making narrative: Patient 89-year-old male presenting to day with history of Alzheimer's but continues to live semi independently he continues to drive he drives to the same place every day for lunch. Sudden noticed it over the last 3 weeks he has had some increased fatigue and possibly more confusion. Patient has no complaints now exam is benign. He has no respiratory distress no abdominal pain no other symptoms. Blood work has been reviewed CBC no leukocytosis no anemia CMP mild decrease in bicarb which is 20 no DIANA glucose is 148 it does show that hemoglobin A1c is 6.4, no evidence of DKA or hyperglycemia Normal bilirubin liver enzymes and lipase Troponin is negative BNP is 235 Urinalysis does not show evidence of UTI Patient is neurovascularly intact no ataxia not falling no evidence of trauma at this time I do not think he needs a head CT. He is not on anticoagulation. No significant decline or event that happened today son has just noticed a gradual decline. It maybe progression of Alzheimer's. At this time no infection no need for antibiotics. No need for imaging. Discussion with son and patient about safety of driving recommend follow-up with primary care. Differential diagnosis anemia, DKA, sepsis infection cardiac event Discharge Plan Departure Patient Disposition: Home Clinical Impression: Fatigue Instructions: DI for Fatigue Activity Restrictions/Additional Instructions: *You have been diagnosed with fatigue *What to do: At this time blood work is overall reassuring. You do elevated A1c which is consistent with diabetes it may or may not be contributing to your fatigue. Please discuss this with your primary care provider *Continue to take medications as directed *Follow up with your primary care provider in 2-3 days or call [phone] *Return to ER if you should have increasing fatigue confusion weak or any new, worsening or concerning symptoms Prescriptions: No Action atorvastatin 40 mg tablet 40 mg PO HS Qty: 90 3RF losartan [Cozaar] 100 mg tablet 100 mg PO DAILY Qty: 90 2RF finasteride 5 mg tablet 5 mg PO DAILY Qty: 90 3RF diltiazem HCl 180 mg capsule,extended release 24hr 180 mg PO DAILY Qty: 90 1RF Prolia 60 mg/mL syringe 60 mg SUBCUT [id number] leuprolide acetate (6 month) [Lupron Depot (6 Month)] IM [id number] latanoprost 0.005 % drops 1 drp EYE-LEFT DAILY Patient Comments: place 1 drop into left eye at bedtime donepezil 5 mg tablet 5 mg PO DAILY donepezil 10 mg tablet 10 mg PO ONCE PM Referrals: Kimberly Coello DO [Primary Care Provider, Family Practice] Stand Alone Forms: Patient Portal/API
[2025-07-26 15:21] LABS: Culture Indicated Urine Cult Not Indicated
== END 2025-07-26 15:43 | disposition home or self-care (01) ==
PROVIDERS: Emergency Provider Emergency Medicine; PCP Family Medicine
DX: R53.83 Other fatigue (principal)
CPT/HCPCS: 36415; 80053; 81003; 81015; 82550; 83690; 83735; 83880; 84484; 85025; 85610; 85730; 99283

== ENCOUNTER → 2025-08-06 14:20 | Outpatient (CLI) | payer MEDICARE, SELFPAY ==
--- NOTE | 2025-08-06 14:22 | DI.CT.S_ITS ---
PROCEDURE: CT LUMBAR SPINE WO CON INDICATIONS: stool incontience/hx of lumbar laminectomy TECHNIQUE: Noncontrast 3 mm thick sections acquired from the T12 level to the sacrum. Sagittal and coronal reformats were constructed. For radiation dose reduction, the following was used: automated exposure control. COMPARISON: [facility], CT, CT LUMBAR SPINE WO CON, 09/27/2022, 14:56. FINDINGS: Image quality: Diagnostic. Bones: Again noted is prior posterior fusion of lower lumbar spine at L4-5 and L5-S1 levels with surgical hardware in place. Hardware positions unchanged from prior study.. There is no definite evidence of hardware loosening or failure. Questionable increased lucency adjacent to right S1 pedicle screw is unchanged dating back to 2019 study. There is mild rightward curvature of thoracolumbar spine with apex at T12 level and compensatory mild leftward curvature of lower lumbar spine with apex at L4 level. No acute vertebral body compression fracture. T12-L1: Unremarkable. L1-L2: Mild diffuse disc bulge and degenerative endplate changes with bilateral facet arthrosis. Mild central canal stenosis, moderate right-sided neural foraminal narrowing and mild left-sided neural foraminal narrowing is seen progressed since 2021 study. L2-L3: Loss of disc height and degenerative endplate changes. Broad-based disc bulge and central disc herniation with bilateral facet arthrosis causing moderate central canal stenosis and moderate to severe left worse than right bilateral neural foraminal narrowing. L3-L4: Degenerative endplate changes and loss of disc height. Broad-based disc bulge and bilateral facet arthrosis causing moderate to severe central canal stenosis and severe bilateral neural foraminal narrowing. L4-L5: Postsurgical changes are noted from prior left lung the min ectomy. Bilateral facet arthrosis is seen with mild bilateral neural foraminal narrowing. No significant central canal stenosis. L5-S1: Postsurgical changes are seen. Bilateral facet arthrosis. No significant central canal stenosis. Severe left-sided neural foraminal narrowing and [id number] right-sided neural foraminal narrowing is seen. Soft tissues: No retroperitoneal masses or hematomas. Visualized aorta is normal in caliber. IMPRESSION: 1. Prior posterior fusion at L4 through S1 levels with stable lumbar spine alignment. No acute fracture or dislocation. No definite hardware loosening or failure. Stable appearance of slightly increased radiolucencies involving right S1 pedicle screw. 2. Spondylitic changes throughout lumbar spine causing various degrees of central canal stenosis and bilateral neural foraminal narrowing slightly worsened compared to 2021 study. 3. No gross paraspinous soft tissue abnormalities. Dictated by: Matty Rodríguez M.D. on 08/07/2025 at 13:18 Approved by: Matty Rodríguez M.D. on 08/07/2025 at 13:24
== END ==
LOC: CT 14:22
PROVIDERS: PCP Family Medicine; Referring Provider Family Medicine; Visit Provider Family Medicine
DX: M47.816 Spondylosis without myelopathy or radiculopathy, lumbar region (principal); M47.817 Spondylosis without myelopathy or radiculopathy, lumbosacral region; M48.061 Spinal stenosis, lumbar region without neurogenic claudication; M48.07 Spinal stenosis, lumbosacral region; R15.9 Full incontinence of feces; Z98.890 Other specified postprocedural states; Z98.1 Arthrodesis status
CPT/HCPCS: 72131